=== PATIENT | male | born 1940 | race Caucasian/White ===

== ENCOUNTER 2023-03-24 15:31 | Outpatient (AMB) | payer MEDICARE, OTHER, SELFPAY ==
--- NOTE | 2023-03-24 15:46 | A.OFFVIS_ITS ---
Intake Intake Visit Reasons: Nocturia/saw Dr. Caldwell before Intake Note: Pt presents to the office today for Nocturia. Urinalysis done. PVR-0 Allergies amoxicillin [AMOXICILLIN] Allergy (Intermediate, Unverified 03/24/23 15:46) SKIN SLOUGHING Medication List - Last Reconciled 03/24/23 by Franco Staples MD albuterol sulfate mg inhalation Q6H PRN allopurinol 300 mg PO DAILY apixaban (Eliquis) 2.5 mg PO BID carvedilol 3.125 mg PO BID empagliflozin (Jardiance) 10 mg PO DAILY yvcufjudprf-lekvvrkow-ootekkod 100-62.5-25 mcg (Trelegy Ellipta) 1 ea inhalation DAILY insulin aspart U-100 (Novolog FlexPen U-100 Insulin aspart) 30 - 44 units subcut TID insulin glargine (Basaglar KwikPen U-100 Insulin) 50 units subcut QPM montelukast 10 mg PO DAILY nitroglycerin 0.4 mg sublingual DAILY PRN sacubitril-valsartan 24-26 mg (Entresto) 1 tab PO BID simvastatin 40 mg PO BEDTIME tamsulosin 0.4 mg PO BEDTIME 90 days torsemide 20 mg PO BID HPI HPI Comments History of Present Illness Details Hardeep is a pleasant male. He seen for following urologic issues - lower urinary tract symptoms Lower urinary tract symptoms Prior prostate procedure Has both storage and emptying symptoms Urinary urgency with weakness of stream Diabetic on Jardiance Prostate medications include tamsulosin Recommend 3 month follow-up with cystoscopy Review of Systems Const Denies chills and Denies fever(s) Card Reports no additional complaints and Denies syncope Resp Denies cough GI Denies abdominal pain and Denies heartburn Reports as per HPI and Denies change in libido Neuro Denies syncope Psych Denies change in libido Endo Denies change in libido Physical Exam Const General: cooperative, healthy appearing, comfortable and no acute distress Orientation/consciousness: patient oriented x3 HEENT Face and sinus: Yes normal facial exam Mouth: moist mucous membranes Neck Neck: Yes normal visual inspection, Yes full ROM and Yes trachea midline Chest Chest palpation & inspection: normal inspection of the chest Resp Effort & Inspection: normal respiratory effort, able to speak in complete sentences and no respiratory distress GI Inspection: Yes normal to inspection Back/Spine/Pelvis Cervical Spine: normal cervical lordosis Thoracic/Lumbar Spine: thoracic and lumbar spine normal to inspection Skin General skin exam: no rashes or lesions noted Neuro General: patient oriented x3, gait normal, tone normal and moves all extremities Extrem General: Yes normal to inspection and Yes capillary refill normal Office Procedures Post Void Residual Post Residual Void Post Void Residual (PVR): 0 [id number]-[id number] Void Residual by ultrasound Results AMB Urinalysis, Automated UA Leukoctes 0 Yehuda/uL Last Edit by Karla Bell MA on 03/24/23 16:01 UA Nitrite Negative Last Edit by Karla Bell MA on 03/24/23 16:01 UA Urobilinogen 0.2 mg/dL Last Edit by Karla Bell MA on 03/24/23 16:01 UA Protein 0 mg/dL Last Edit by Karla Bell MA on 03/24/23 16:01 UA pH 6.0 Last Edit by Karla Bell MA on 03/24/23 16:01 UA Blood 0 Nikko/uL Last Edit by Karla Bell MA on 03/24/23 16:01 UA Specific [place] 1.015 Last Edit by Karla Bell MA on 03/24/23 16:01 UA Ketone Negative Last Edit by Karla Bell MA on 03/24/23 16:01 UA Bilirubin 0 mg/dL Last Edit by Karla Bell MA on 03/24/23 16:01 UA Glucose 500 mg/dL Last Edit by Karla Bell MA on 03/24/23 16:01 Results Reviewed Results Reviewed: Laboratory Last Values Urine pH (Auto) 6.0 03/24/23 16:00 Specific [place] (Auto) 1.015 03/24/23 16:00 Urine Protein (Auto) 0 mg/dL 03/24/23 16:00 Glucose (UA)(Auto) 500 mg/dL 03/24/23 16:00 Urine Ketones (Auto) Negative 03/24/23 16:00 Urine Blood (Auto) 0 Nikko/uL 03/24/23 16:00 Urine Nitrite (Auto) Negative 03/24/23 16:00 Urine Bilirubin (Auto) 0 mg/dL 03/24/23 16:00 Urine Urobilinogen (Auto) 0.2 mg/dL 03/24/23 16:00 Leukocyte Esterase (Auto) 0 Yehuda/uL 03/24/23 16:00 Assessment & Plan Assessment & Plan (1) Bladder outlet obstruction: Code(s): N32.0 - Bladder-neck obstruction Plan 3 month f/u cysto Orders: Orders AMB Post Void Residual by ultrasound 03/24/23 R35.1 - Nocturia AMB Urinalysis Automated 03/24/23 Z13.9 - Encounter for screening, unspecified Medications: New tamsulosin 0.4 mg PO BEDTIME 90 caps 1RF 90 days N32.0 - Bladder-neck obstru ction, N40.1 - Benign prostatic hyperplasia with lower urinary tract symptoms, N13.8 - Other obstructive and reflux uropathy Patient Instructions: Imaging studies, laboratory and physical exam results were discussed and reviewed in detail. No major barriers to patient understanding were identified. An opportunity to ask questions regarding the treatment plan was provided. All questions were answered. The patient expressed understanding and agreement with the above treatment plan. The patient is aware they should contact our office by phone for worsening of their current condition or the appearance of new urologic symptoms. Compliance is encouraged with any medications and followup testing that is ordered. It is a privilege to participate in the urologic care of your patient. If you have any questions or concerns regarding treatment for the above conditions, or other urologic issues, please do not hesitate to contact me. The office telephone contact is [phone]. This note is constructed using voice recognition software. While every effort has been made to ensure accuracy desk maker errors may have been included. Yours sincerely, Dr Franco Staples MD, [facility] - Urology Providers of Expert, Compassionate Care for the Genitourinary System Coding Level of Care Code New Pt Level 4 (04137) Diagnoses Bladder outlet obstruction N32.0 CPT Codes Post Residual Void - PVR CPT Code: 26395-Zkhi Void Residual by ultrasound ([id number])
== END 2023-03-24 16:30 | disposition home or self-care (01) ==
PROVIDERS: Visit Provider Urology
DX: N32.0 Bladder-neck obstruction (principal)
CPT/HCPCS: 99204

== ENCOUNTER → 2023-03-24 15:31 | Outpatient (BNVA) | payer MEDICARE, OTHER, SELFPAY | PROVIDERS: Visit Provider Urology | DX: N32.0 Bladder-neck obstruction (principal) | CPT/HCPCS: 51798 ==

== ENCOUNTER 2023-07-10 13:25 | Outpatient (AMB) | payer MEDICARE, OTHER, SELFPAY ==
--- NOTE | 2023-07-10 13:34 | A.OFFVIS_ITS ---
Intake Intake Visit Reasons: 3m/cysto(Bladder Outlet ob_) Intake Note: Patient presents today for a CYSTOSCOPY Procedure: Meds: Tamsulosin Allergies to Antibiotic: Amoxicilin Blood Thinner: Eliquis & Torsemide Urinalysis test clear for Cysto? Disposable Uro-G Cystoscope Cannula: Lot: [id number] Exp: 01/04/2025 Jewelry Inspector Required: No Accompanied by: Self / Same As Patient Allergies amoxicillin [AMOXICILLIN] Allergy (Intermediate, Verified 07/10/23 13:34) SKIN SLOUGHING HPI HPI Comments History of Present Illness Details Hardeep is an 86-year-old male who presents today to the office for a follow-up. 07/10/2023-- He is followed today for office cystoscopy He was last seen by Dr. Jhoan Gamez on 03/24/2023 for bladder outlet obstruction. Cystoscopy procedure: consent was obtained for the procedure. Cystoscopy findings: Trilobar enlargement of the prostate which is obstructive Patient is going to [place] for the winter. He will be back in 11/2023. 07/10/2023: Evaluation today--UA--Leukoc ytes: negative; blood: negative. 07/10/2023: Plan: Tamsulosin refilled. Follow-up with Dr. Staples in 01/2024 to evaluate for possible Green Light laser.. COUNT INCLUDES [facility] Surgical History Hx of cystoscopy Review of Systems Const All systems reviewed & are unremarkable except as noted in HPI and below Reports no additional complaints Eyes Reports no additional complaints ENT Reports no additional complaints Card Denies dyspnea Resp Denies cough and Denies dyspnea GI Reports no additional complaints Musc Reports no additional complaints Skin/Breast Denies rash and Denies unusual bruising Neuro Reports no additional complaints Psych Reports no additional complaints Endo Reports no additional complaints Richard/Lymph Reports no additional complaints Aller/Immun Reports no additional complaints Office Procedures Cystoscopy Consent Discussed risk and benefit or proposed procedure with the patient. Information consent for procedure given to the patient. Discussed technical aspects, risks, benefits and alternatives in full. Addressed all of the patient's questions and concerns regarding the procedure. The patient demonstrated knowledge and understanding. They wish to proceed with this procedure. Preparation The patient was prepped in the usual manner. A information technology auditor was present and in the room. Genitalia was prepped with betadine solution in a sterile manner. Lidocaine Jelly 2% was placed into the urethra and 16Fr flexible Olympus cystoscope was inserted into the meatus after adequate lubrication. Procedure Time out per protocol performed. Bladder Inspection Bladder Inspection: The bladder was inspected in its entirety with utilization retroflexion displaying: Tumor(s): none visualized Trabeculation: moderate Mucosal Erthema: mild Orifices: normal shape and position Urethra: normal Cystoscopy findings: prostatic urethra tri-lobar obstructive, bulbous urethra WNL, no suspicious bladder lesions visualized 53730-Yhsocouqzl DISPOSABLE SCOPE URO-G FLEXIBLE SCOPE Procedure code (CPT) selection complete Office Meds lidocaine HCl 2 % mucosal jelly in applicator Performing Provider: Shiela Cote MD Performing Location: [facility] Administered by: Linda Costa RN on 07/10/23 13:54 Dose Route Admin Location Dispensed Lot Number Expiration Date ND Financial Analyst Accountant 10 mL intra-urethral 20 mL naproxen 500 mg tablet Performing Provider: Shiela Cote MD Performing Location: [facility] Administered by: Linda Costa RN on 07/10/23 13:54 Dose Route Admin Location Dispensed Lot Number Expiration Date NDC Financial Analyst Accountant 500 mg PO 1 tab ciprofloxacin HCl 500 mg tablet Performing Provider: Shiela Cote MD Performing Location: [facility] Administered by: Linda Costa RN on 07/10/23 13:54 Dose Route Admin Location Dispensed Lot Number Expiration Date NDC Financial Analyst Accountant 500 mg PO 1 tab Results AMB Urinalysis, Automated UA Leukoctes 0 Yehuda/uL Last Edit by MERCEDEZ Dior on 07/10/23 13:44 UA Nitrite Negative Last Edit by MERCEDEZ Dior on 07/10/23 13:44 UA Urobilinogen 0.2 mg/dL Last Edit by Jaun Barahona A on 07/10/23 13:4 4 UA Protein 0 mg/dL Last Edit by Jaun Barahona A on 07/10/23 13:44 UA pH 6.0 Last Edit by Jaun Barahona, A on 07/10/23 13:44 UA Blood 0 Nikko/uL Last Edit by Jaun Barahona, A on 07/10/23 13:44 UA Specific [place] 1.015 Last Edit by Jaun Barahona, A on 07/10/23 13: 44 UA Ketone Negative Last Edit by Jaun Barahona, A on 07/10/23 13:44 UA Bilirubin 0 mg/dL Last Edit by Jaun Barahona A on 07/10/23 13:44 UA Glucose 100 mg/dL Last Edit by Jaun Barahona A on 07/10/23 13:44 Results Reviewed Results Reviewed: Laboratory Last Values Urine pH (Auto) 6.0 07/10/23 13:43 Specific [place] (Auto) 1.015 07/10/23 13:43 Urine Protein (Auto) 0 mg/dL 07/10/23 13:43 Glucose (UA)(Auto) 100 mg/dL 07/10/23 13:43 Urine Ketones (Auto) Negative 07/10/23 13:43 Urine Blood (Auto) 0 Nikko/uL 07/10/23 13:43 Urine Nitrite (Auto) Negative 07/10/23 13:43 Urine Bilirubin (Auto) 0 mg/dL 07/10/23 13:43 Urine Urobilinogen (Auto) 0.2 mg/dL 07/10/23 13:43 Leukocyte Esterase (Auto) 0 Yehuda/uL 07/10/23 13:43 Assessment & Plan Assessment & Plan (1) Bladder outlet obstruction: Code(s): N32.0 - Bladder-neck obstruction Plan Tamsulosin refilled. Follow-up with Dr. Staples in 01/2024. Orders: Orders AMB Cystoscopy 07/10/23 N32.0 - Bladder-neck obstruction AMB Urinalysis Automated 07/10/23 Z13.9 - Encounter for screening, unspecified Medications: Refilled tamsulosin 0.4 mg PO BEDTIME 90 caps 3RF 90 days N32.0 - Bladder-neck obstruction, N40.1 - Benign prostatic hyperplasia with lower urinary tract symptoms, N13.8 - Other obstructive and reflux uropathy Patient Instructions: The patient had an opportunity to ask questions regarding treatment plan. All questions were answered. Imaging, Laboratory studies and physical exam results were discussed and reviewed in detail. No major barriers to understanding were identified. The patient expressed understanding and agreement with the above treatment plan. The patient is aware they should contact our office by phone for worsening of their current condition or the appearance of new symptoms. Compliance is encouraged with any medications and followup testing that is ordered. It is a privilege to be allowed the opportunity to participate in the urologic care of your patient. If you have any questions or concerns regarding treatment for the above conditions please do not hesitate to contact me. The office telephone contact is [phone]. This note is constructed in part using voice recognition software. While every effort has been made to ensure accuracy exterior work helper errors may have been included. Yours sincerely, Shiela Cote MD Coding Level of Care Code Procedure Only Diagnoses Bladder outlet obstruction N32.0 CPT Codes Cystoscopy - CPT: 66831-Wzwbraovvq ([id number])
== END 2023-07-10 14:40 | disposition home or self-care (01) ==
LOC: HO.HUSH 13:25
PROVIDERS: PCP Internal Medicine; Visit Provider Urology
DX: Z13.9 Encounter for screening, unspecified (principal); N32.0 Bladder-neck obstruction
CPT/HCPCS: 52000

== ENCOUNTER → 2023-07-10 13:25 | Outpatient (BNVA) | payer MEDICARE, OTHER, SELFPAY | PROVIDERS: PCP Internal Medicine; Visit Provider Urology | DX: N32.0 Bladder-neck obstruction (principal) | CPT/HCPCS: 52000; 81003 ==

== ENCOUNTER 2024-06-18 10:42 | Outpatient (AMB) | payer MEDICARE, OTHER, SELFPAY ==
--- NOTE | 2024-06-18 10:47 | A.OFFVIS_ITS ---
Intake Visit Reasons: PVR/Discussion on Greenlight Intake Note: Patient is present for PVR/DISCUSSION ON GREENLIGHT Urology Medication:TAMSULOSIN, ALLOPURINOL Antibiotic Allergy:AMOXCILLIN Blood Thinner:ELIQUIS TODAY'S PVR: 0ML'S Patient states that he has been having some burning when urinating and does see some blood in his urine Automotive Accessory Installer Required: No Allergies amoxicillin [AMOXICILLIN] Allergy (Intermediate, Verified 06/18/24 10:49) SKIN SLOUGHING HPI Comments Details: Hardeep is a pleasant male. He seen for following urologic issues - lower urinary tract symptoms - urinary culture Underwent cystoscopy beginning of this year Has recurrent BPH Previously discussed prostate procedures Might benefit from addition of finasteride UA today positive leukocytes, positive blood. Given diabetic status will treat and performed culture Had femur fracture while standing and kitchen. Obtain baseline DEXA scan Lower urinary tract symptoms Prior prostate procedure Has both storage and emptying symptoms Urinary urgency with weakness of stream Diabetic on Jardiance Prostate medications include tamsulosin PFSH Surgical History Hx of cystoscopy Review of Systems Const Denies chills and Denies fever(s) Card Reports no additional complaints and Denies syncope Resp Denies cough GI Denies abdominal pain and Denies heartburn Reports as per HPI and Denies change in libido Neuro Denies syncope Psych Denies change in libido Endo Denies change in libido Physical Exam Const General: cooperative, healthy appearing, comfortable and no acute distress Orientation/consciousness: patient oriented x3 HEENT Face and sinus: Yes normal facial exam Mouth: moist mucous membranes Neck Neck: Yes normal visual inspection, Yes full ROM and Yes trachea midline Chest Chest palpation & inspection: normal inspection of the chest Resp Effort & Inspection: normal respiratory effort, able to speak in complete sentences and no respiratory distress GI Inspection: Yes normal to inspection Back/Spine/Pelvis Cervical Spine: normal cervical lordosis Thoracic/Lumbar Spine: thoracic and lumbar spine normal to inspection Skin General skin exam: no rashes or lesions noted Neuro General: patient oriented x3, gait normal, tone normal and moves all extremities Extrem General: Yes normal to inspection and Yes capillary refill normal Office Procedures Post Void Residual Post Residual Void Post Void Residual (PVR): 0 10014-Kpmp Void Residual by ultrasound Results AMB Urinalysis, Automated UA Leukoctes 500 Yehuda/uL Last Edit by GARRY Durán on 06/18/24 11:30 UA Nitrite Negative Last Edit by GARRY Durán on 06/18/24 11:30 UA Urobilinogen 0.2 mg/dL Last Edit by GARRY Durán on 06/18/24 11:3 0 UA Protein 15 mg/dL Last Edit by GARRY Durán on 06/18/24 11:30 UA pH 6.0 Last Edit by GARRY Durán on 06/18/24 11:30 UA Blood 80 Nikko/uL Last Edit by GARRY Durán on 06/18/24 11:30 UA Specific [place] 1.015 Last Edit by GARRY Durán on 06/18/24 11: 30 UA Ketone Negative Last Edit by GARRY Durán on 06/18/24 11:30 UA Bilirubin 0 mg/dL Last Edit by GARRY Durán on 06/18/24 11:30 UA Glucose 1000 mg/dL Last Edit by GARRY Durán on 06/18/24 11:30 Assessment & Plan Assessment & Plan (1) Bladder outlet obstruction: Code(s): N32.0 - Bladder-neck obstruction Category: Medical (2) Complicated urinary tract infection: Code(s): N39.0 - Urinary tract infection, site not specified Category: Medical (3) Femur fracture: Code(s): S72.90XA - Unspecified fracture of unspecified femur, initial encounter for closed fracture Category: Medical Plan DEXA scan Six week follow-up with finasteride Orders: Orders Urine Culture Today N39.0 - Urinary tract infection, site not specified XR DEXA axial skeleton 3 Months S72.90XA - Unspecified fracture of unspecified femur, initial encounter for closed fracture AMB Urinalysis Automated Today Z13.9 - Encounter for screening, unspecified Medications: New levofloxacin 500 mg PO DAILY 14 days 14 tabs 0RF N39.0 - Urinary tract infection, site not specified finasteride 5 mg PO DAILY 90 days 90 tabs 1RF N13.8 - Other obstructive and reflux uropathy, N32.0 - Bladder-neck obstruction, N40.1 - Benign prostatic hyperplasia with lower urinary tract symptoms, R33.9 - Retention of urine, unspecified Patient Instructions: Imaging studies, laboratory and physical exam results were discussed and reviewed in detail. No major barriers to patient understanding were identified. An opportunity to ask questions regarding the treatment plan was provided. All questions were answered. The patient expressed understanding and agreement with the above treatment plan. The patient is aware they should contact our office by phone for worsening of their current condition or the appearance of new urologic symptoms. Compliance is encouraged with any medications and followup testing that is ordered. It is a privilege to participate in the urologic care of your patient. If you have any questions or concerns regarding treatment for the above conditions, or other urologic issues, please do not hesitate to contact me. The office telephone contact is [phone]. This note is constructed using voice recognition software. While every effort has been made to ensure accuracy border patrol officer errors may have been included. Yours sincerely, Dr Franco Staples MD, [facility] - Urology Providers of Expert, Compassionate Care for the Genitourinary System Coding Level of Care Code Est Pt Level 4 (91655) Diagnoses Bladder outlet obstruction N32.0 Complicated urinary tract infection N39.0 Femur fracture S72.90XA CPT Codes Post Residual Void - PVR CPT Code: 05803-Lfdf Void Residual by ultrasound ([id number])
== END 2024-06-18 11:58 | disposition home or self-care (01) ==
PROVIDERS: PCP Internal Medicine; Visit Provider Urology
DX: N32.0 Bladder-neck obstruction (principal); N39.0 Urinary tract infection, site not specified; S72.90XA Unspecified fracture of unspecified femur, initial encounter for closed fracture; Z13.9 Encounter for screening, unspecified
CPT/HCPCS: 99214

== ENCOUNTER 2024-06-18 10:42 | Outpatient (REF) | payer MEDICARE, OTHER, SELFPAY | END 2024-06-18 10:43 | disposition home or self-care (01) | LOC: HO.LNP 10:42 | PROVIDERS: PCP Internal Medicine; Visit Provider Urology | DX: N39.0 Urinary tract infection, site not specified (principal); N40.1 Benign prostatic hyperplasia with lower urinary tract symptoms; R39.15 Urgency of urination; N32.0 Bladder-neck obstruction; N13.8 Other obstructive and reflux uropathy; R39.12 Poor urinary stream; R33.8 Other retention of urine | CPT/HCPCS: 51798; 81003; 87086; 87088; 87186; 99212 ==

== ENCOUNTER 2024-07-04 13:41 | Outpatient (REF) | payer MEDICARE, OTHER, SELFPAY | END 2024-07-04 13:42 | disposition home or self-care (01) | LOC: HO.LAB 13:41 | PROVIDERS: PCP Internal Medicine; Visit Provider Urology | DX: N32.0 Bladder-neck obstruction (principal); N39.0 Urinary tract infection, site not specified | CPT/HCPCS: 81003; 87086 ==

== ENCOUNTER 2024-07-04 13:41 | Outpatient (AMB) | payer MEDICARE, OTHER, SELFPAY ==
--- NOTE | 2024-07-04 14:13 | AM.OFFVISNUR ---
Intake Visit Reasons: blood in urine Allergies amoxicillin [AMOXICILLIN] Allergy (Intermediate, Verified 06/18/24 10:49) SKIN SLOUGHING Nursing Note Patient presents to office after calling into office reporting gross hematuria. Patient present with for visit. Patient took photo this morning of toilet bowl after voiding, water in toilet bowl appeared to be dark red. Patient reporting that he also has had to dab end of penis due to blood coming out. UA run- indicates infection. Reviewed with Dr. Staples- patient has infection, send bactrim DS BID x14 days. Patient aware and agreeable. Results AMB Urinalysis, Automated UA Leukoctes 500 Yehuda/uL Last Edit by Joshua Rose LPN on 07/04/24 14:26 UA Nitrite Positive Last Edit by Joshua Rose LPN on 07/04/24 14:26 UA Urobilinogen 2 mg/dL Last Edit by Joshua Rose LPN on 07/04/24 14:26 UA Protein 100 mg/dL Last Edit by Joshua Rose LPN on 07/04/24 14:26 UA pH 5.5 Last Edit by Joshua Rose LPN on 07/04/24 14:26 UA Blood 200 Nikko/uL Last Edit by Joshua Rose LPN on 07/04/24 14:26 UA Specific [place] 1.010 Last Edit by Joshua Rose LPN on 07/04/24 14:26 UA Ketone Positive Last Edit by Joshua Rose LPN on 07/04/24 14:26 UA Bilirubin 0 mg/dL Last Edit by Joshua Rose LPN on 07/04/24 14:26 UA Glucose 500 mg/dL Last Edit by Joshua Rose LPN on 07/04/24 14:26 Assessment & Plan Assessment & Plan Orders: Orders Urine Culture Today N32.0 - Bladder-neck obstruction, N39.0 - Urinary tract infection, site not specified AMB Urinalysis Automated Today N32.0 - Bladder-neck obstruction, N39.0 - Urinary tract infection, site not specified
== END 2024-07-04 14:56 | disposition home or self-care (01) ==
LOC: HO.HUSH 13:42
PROVIDERS: PCP Internal Medicine; Visit Provider Urology
DX: N39.0 Urinary tract infection, site not specified (principal); N32.0 Bladder-neck obstruction

== ENCOUNTER 2024-08-02 10:42 | Outpatient (AMB) | payer MEDICARE, OTHER, SELFPAY ==
--- NOTE | 2024-08-02 10:42 | MHC.OFFVIS ---
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 He seen for following urologic issues - lower urinary tract symptoms - urinary culture Telemedicine Evaluation 15 min Consultation Doximity Guille Video Significant improvement after antibiotics for UTI Underwent cystoscopy beginning of this year Has recurrent BPH Previously discussed prostate procedures Initiate finasteride Lower urinary tract symptoms Prior prostate procedure Has both storage and emptying symptoms Urinary urgency with weakness of stream Diabetic on Jardiance Prostate medications include tamsulosin PFSH Surgical History Hx of cystoscopy Review of Systems Const All systems reviewed & are unremarkable except as noted in HPI and below Reports no additional complaints Resp Reports no additional complaints GI Reports no additional complaints Reports as per HPI Musc Reports no additional complaints Physical Exam Telemedicine evaluation Appropriate responses Regular breathing rate and rhythm HEENT Head: Yes normal to inspection Ears: hearing grossly normal bilaterally Eyes General: appearance normal, both eyes and all related structures Neck Neck: Yes normal visual inspection Chest Chest palpation & inspection: normal inspection of the chest Resp Effort & Inspection: normal respiratory effort and able to speak in complete sentences Telehealth Telehealth Telehealth Platform: Octopart Location of provider rendering services: practice address Location of patient: address on file Patient Identification confirmed using: Name, : Yes Telehealth method: video Patient verbally consented to treatment: Yes Patient verbally consented to billing insurance company: Yes Patient informed of any privacy concerns related to visit: Yes Minutes spent on Phone/Video with Pt.: 15 Assessment & Plan Assessment & Plan (1) Bladder outlet obstruction: Code(s): N32.0 - Bladder-neck obstruction Category: Medical (2) Complicated urinary tract infection: Code(s): N39.0 - Urinary tract infection, site not specified Category: Medical (3) Femur fracture: Code(s): S72.90XA - Unspecified fracture of unspecified femur, initial encounter for closed fracture Category: Medical Plan Six-month follow-up office Medications: Refilled finasteride 5 mg PO DAILY 90 days 90 tabs 1RF N13.8 - Other obstructive and reflux uropathy, N32.0 - Bladder-neck obstruction, N40.1 - Benign prostatic hyperplasia with lower urinary tract symptoms, R33.9 - Retention of urine, unspecified Patient Instructions: Imaging studies, laboratory and physical exam results were discussed and reviewed in detail. No major barriers to patient understanding were identified. An opportunity to ask questions regarding the treatment plan was provided. All questions were answered. The patient expressed understanding and agreement with the above treatment plan. The patient is aware they should contact our office by phone for worsening of their current condition or the appearance of new urologic symptoms. Compliance is encouraged with any medications and followup testing that is ordered. It is a privilege to participate in the urologic care of your patient. If you have any questions or concerns regarding treatment for the above conditions, or other urologic issues, please do not hesitate to contact me. The office telephone contact is [phone]. This note is constructed using voice recognition software. While every effort has been made to ensure accuracy medical transcription errors may have been included. Yours sincerely, Dr Franco Staples MD, [facility] - Urology Providers of Expert, Compassionate Care for the Genitourinary System Coding Level of Care Code Tele Est Pt Level 3 (42787) Diagnoses Bladder outlet obstruction N32.0 Complicated urinary tract infection N39.0 Femur fracture S72.90XA
--- OUTSIDE RECORDS SUMMARY | 2024-08-07 07:42 | XMS_ITS ---
Author Organization [facility] Address [address] [place] [address] Care Team Providers Care Travel Manager Name Role Phone TRISTAN RESENDEZ Primary Care Provider [phone] REASON FOR VISIT Spam call Encounters Encounter Location Date Provider Diagnosis [facility] [address] [place] [address] 08/02/2024 TRISTAN RESENDEZ PLAN OF TREATMENT Next Appt Details Provider Name:TRISTAN RESENDEZ, 01/13/2025 11:45:00 AM, [address], [facility] [place], [address], Progress Notes * Hardeep HOLGUINDOB: 2 (84 yo M)Acc No.[id number]:08/02/2024 Patient:??Hardeep HOLGUIN :1940?Age:84 Y?Sex:Osiris roberson Address:[address], [place] [address] * true * Date:??
--- OUTSIDE RECORDS SUMMARY | 2024-08-07 07:42 | XMS_ITS ---
Author Organization [facility] Address [address] [place] [address] Care Team Providers Care Kosher Dietary Service Manager Name Role Phone TRISTAN RESENDEZ Primary Care Provider VINNIE PIPER [phone] Scan Results Encounters Encounter Location Date Provider Diagnosis [facility] [place] [facility] [address] [facility] [place] [address] 07/11/2024 VINNIE PIPER PLAN OF TREATMENT Next Appt Details Provider Name:TRISTAN RESENDEZ, 01/13/2025 11:45:00 AM, [address], [facility] [place], [address], Progress Notes * CHELSIEHardeepDOB: 2 (84 yo M)Acc No.[id number]:07/11/2024 Patient:??Hardeep HOLGUIN :1940?Age:84 Y?Sex:Kaci da Address:[place] [address] * true * Date:??
--- OUTSIDE RECORDS SUMMARY | 2024-08-07 07:42 | XMS_ITS ---
Author Organization [facility] Address [address] [address] Care Team Providers Care Goodyear Welter Name Role Phone TRISTAN RESENDEZ Primary Care Provider [phone] REASON FOR VISIT EQUIPMENT SUPERINTENDENT Encounters Encounter Location Date Provider Diagnosis [address] [address] 07/12/2024 TRISTAN RESENDEZ PLAN OF TREATMENT Next Appt Details Provider Name:TRISTAN RESENDEZ, 01/13/2025 11:45:00 AM, [address], [place], [address], Progress Notes * CHELSIEHardeep SCHAFERDOB: 2 (84 yo M)Acc No.[id number]:07/12/2024 Patient:??Hardeep HOLGUIN :1940?Age:84 Y?Sex:Osiris roberson Address:[address], [place] [address] * true * Date:??
--- OUTSIDE RECORDS SUMMARY | 2024-08-07 07:43 | XMS_ITS ---
Author Organization [facility] Address [address] [facility] [place] [address] Care Team Providers Care Bi Architect Name Role Phone Rimma Pettit Primary Care Provider Fernando Diane Unavailable [phone] Allergies Allergen (clinical drug ingredient) Drug/Non Drug Allergy documented on EMR Reaction Allergy Type Onset Date Status amoxicillin Amoxicillin rash, skin peeling Drug Allergy Active Doxycycline Calcium Reaction Drug Allergy Active REASON FOR VISIT At Risk Footcare Medications Medication SIG (Take, Route, Frequency, Duration) Notes Start Date End Date Status Xarelto 20 MG 1 tablet Orally Once a day Not-Taking Advair Diskus 500-50 MCG/DOSE 1 puff Inhalation Twice a day Not-Taking Spiriva HandiHaler 18 MCG 1 capsule Inhalation Once a day Not-Taking Glimepiride 4 MG 1 tablet with breakfast or the first main meal of the day Orally Once a day for 30 day(s) Not-Taking Aspirin 81 MG 1 tablet Orally Once a day for 30 day(s) Not-Taking Qnasl 80 MCG/ACT 2 puffs in each nostril Nasally Once a day for 30 day(s) Not-Taking Magnesium Not-Taking Vitamin D Not-Taking Furosemide 40 MG 1 tablet Orally Once a day twice a day Not-Taking Metoprolol Succinate ER 50 MG 1 tablet Orally Once a day for 30 day(s) Not-Taking BD Pen Needle Short U/F 31G X 8 MM as directed Not-Taking One Touch/One Touch II Starter Not-Taking Nebulizer Not-Taking ProAir HFA 108 (90 Base) MCG/ACT 2 puffs as needed Inhalation every 4 hrs Not-Taking Trelegy Ellipta 100-62.5-25 MCG/ACT 1 puff Inhalation Once a day Active NovoLOG 100 UNIT/ML Subcutaneous Active NovoLOG FlexPen Acti ve Simvastatin 40 MG 1 tablet in the evening Orally Once a day for 30 day(s) Active Torsemide 40 MG 1 tablet Orally Once a day Active Trulicity Active Eliquis 2.5 MG 1 tablet Orally Twice a day Active Empagliflozin 10 MG 1 tablet Orally Once a day Active Metoprolol Succinate ER 25 MG 1 tablet Orally Once a day Active Montelukast Sodium 10 MG 1 tablet Orally Once a day Active Nitrostat 0.4 MG 1 tablet under the tongue and allow to dissolve as needed Sublingual every 0 hrs Active Apixaban 2.5 MG 1 tablet Orally Twice a day Active Albuterol Sulfate HFA Active Basaglar KwikPen Act marlon Carvedilol 3.125 MG 1 tablet with food Orally Twice a day Active Clindamycin HCl 300 MG 2 capsules Orally every 8 hrs Active Tamsulosin HCl 0.4 MG 1 capsule 30 minut es after the same meal each day Orally Once a day for 30 day(s) Not-Taking Finasteride 1 MG 1 tablet Orally Once a day for 30 day(s) Not-Taking Allopurinol 300 MG 1 tablet Orally Once a day Active Lantus SoloStar 74units 0.02 ml Subcutaneous Once a day for 30 day(s) Not-Taking HumaLOG KwikPen 32 units as directed Subcutaneous Not-Taking Klor-Con M10 Not-Doug ing Fluticasone Propionate Not-Taking AndroGel 2 pumps per arm each day Not-Taking Lisinopril 20 MG 1 tablet Orally Once a day Not-Taking Calcium Not-Taking Singulair 10 MG 1 tablet in the evening Orally Once a day for 30 day(s) Not-Taking Social History Alcohol Screen Question Answer Notes Did you have a drink containing alcohol in the p ast year? No Points 0 Interpretation Negative Vital Signs Height 5 ft 10 in in 07/01/2024 Weight 253 lbs 07/01/2024 BMI 36.3 kg/m2 07/01/2024 Procedures Procedure Date Ordered Date Performed Result Body Sit e 89453-TZKSPRC NAIL, 6 OR MORE 07/01/2024 N/A 98642-SFXP SKIN LESIONS, 2 TO 4 07/01/2024 N/A Encounters Encounter Location Date Provider Diagnosis [facility] [address] [place] [address] 07/01/2024 Fernando Carrillo Type 1 diabetes mellitus with diabetic polyneuropathy E10.42 and Tinea unguium B35.1 Assessments Encounter Date Diagnosis (ICD Code) Assessment Notes Treatment Notes Treatment Clinical Notes Section Notes 07/01/2024 Type 1 diabetes mellitus with diabetic polyneuropathy (ICD-10 - E10.42) 07/01/2024 Tinea unguium (ICD-10 - B35.1) Plan Of Treatment Pending Test Test Name Order Date 62269-ZWXOFIX NAIL, 6 OR MORE 07/01/2024 02286-ZIVO SKIN LESIONS, 2 TO 4 07/01/20 24 Next Appt Details Follow Up: prn, Reason: Provider Name:Fernando Carrillo , 09/19/2024 03:15:00 PM, [address], [address], [place], [address], Procedure Notes * Category Sub-Category Detail Notes Debride Nail 6-10 Nail debridement Performance o f this nail treatment by a nonprofessional would put this patients foot and overall health at risk. Therefore, nail debridement was performed extensively to reduce/remove overall nail length, girth, thickness, subungual debris, and necrotic tissue, by manual and/or electrical means through the use of a nail nipper and/or dremel-type pulp grinder and blender, to a more viable healthy nail plate or bed tissue 6-10. Silver nitrate used for any petechial bleeding as necessary. Definitive antifungal treatment options have been reviewed and discussed with the patient. The patient chooses, no pharmaceutical tx - 87607 Keratoma Treatment Parring or Cutting o f Benign Hyperkeratotic Lesion(s) (-56) 2-4 Lesions - The Benign hyperkeratotic lesions, as described above were pared, and/or cut utilizing a sterile 15 blade, tissue nippers, and/or dremel - 81856 Progress Notes * Hardeep HOLGUIN LDOB: [birth year] (84 yo M)Acc No.[id number]:07/01/2024 Progress Note Patient:?Hardeep Holguin L Provider:?Fernando Carrillo DPM :1940???Age:84 Y???Sex:Male Parvez e:07/01/2024 Address:[address] [place] [address], [place], [id number] Pcp:Rimma Pettit Subjective: * Chief Complaints: * ???At Risk Footcare * HPI: ???At Risk footcare:?Pt States Last PCP Visit:?Date?06/24/2024 * ROS:?General/Constitutional:?Nausea?denies.?Vomiting?denies.?Hunger Thirst?denies.?Loss appetite?denies.?Chills?denies.?Fatigue?denies.?Fever?denies.?Night Sweats?denies.?Unexplained weight loss?denies.?Ophthalmologic:?Blurred vision?denies.?Red eye?denies.?HEENTM:?Dentures?denies.?Dizziness?denies.?Glasses/contacts?admits.?Retinopathy?de nies.?Blurred/double vision?denies.?TMJ?denies.?Discharge/drainage?denies.?Implants?denies.?Hard of hearing admits.?Difficulty chewing/swallowing/speaking?admits.?Nose bleeds?denies.?Sore mouth?denies.?Swollen glands?denies.?Respiratory:?On Oxygen?denies.?Pneumonia/pleurisy?admits.?Bronchitis?admits.?Emphysema?admits.?C oughing?admits.?Cough blood?denies.?Shortness of breath?admits.?Wheezing?denies.?Cardiovascular:?Pacemaker?admits.?MVP?denies.?WPW?denies.?CHF?denies.?Heart attack?admits , denies.?Septal defect?denies.?Rapid beat?denies.?Chest pain ?admits.?Atrial Fib.?denies.?Murmur/Palpitations?denies.?Gastrointestinal:?Hemorrhoids?denies.?Stomach/Abdominal pain?denies.?Dark blood stool?denies.?Irritable bowel ?denies.?Constipation?denies.?Diarrhea?denies.?Vomiting?denies.?Hematology:?Swelling?admits.?Bruising?admits, on anticoagulants.?Bleeding problem?admits, on anticoagulants.?Genitourinary:?Blood urine?admits.?Frequent/Painfu/urination/bladder control?denies.?Kidney stones?admits.?Infection (UTI)?admits , denies.?Nephropathy?admits.?Musculoskeletal:?Hammertoes?admits.?Bunions?denies.?Scoliosis/kyphosis?denies.?Muscle cramps / walking?admits.?Generalized aches and pains?admits.?Weakness?denies.?Integ.:?Cantu?denies.?Scars?denies.?Corns/calluses?admits.?Ingrown nails?admits.?Painful nails?denies.?Rashes?denies.?Neurologic:?Difficulty sleeping?admits.?Bipolar?denies.?Brain disorder?denies.?Balance trouble?admits.?Confusion?denies.?Fainting/blackouts?denies.?Headache?denies.?Tr emors?denies.? * Medical History:? * Surgical History:?facial cos metic surgery stent insertion heart prostate procedure (laser) right eye sx fib procedure 08/13/21cataract surgery 12/2023 * Hospitalization/Major Diagno stic Procedure:?[facility] for foot pain-ER aug or sep 2012[facility]- foot pain oct jun or jul 2012[facility];bladder infection 10/2014[facility] 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[facility] lung infection 05/2019[facility] Anemia 09/2019[facility] covid 06/07/2021- 19 day stay, heart procedure [facility] [place] pacemaker Broken femur 01/13/2024 * Family History:?Mother: dece ased, poor circulation, diagnosed with Family history of arthritis, Diabetic - NIDDM, Unspecified essential hypertension, Unspecified cerebral artery occlusion with cerebral infarction.?Father: , diagnosed with Unspecified essential hypertension, Other malignant neoplasm of unspecified site.?Spouse: alive.?Siblings: diagnosed with Family history of arthritis, Diabetic - NIDDM, Unspecified essential hypertension, Other malignant neoplasm of unspecified site.? * Social History:?Tobacco Use:?Tobacco Use/Smoking?Are you a:: former smoker , Additional Findings: Tobacco Non-User: Current non-smoker.?Tobacco use other than smoking?Are you an other tobacco user? No.?Drugs/Alcohol:?Drugs?Have you used drugs other than those for medical reasons in the past 12 months??No ?Alcohol Screen?Did you have a drink containing alcohol in the past year??No ?Points?0 ?Interpretation?Negative ???Miscellaneous:?Caffeine: yes, frequency:, 1-2 cups per day. ?Children: yes. ?no Exercise. ?Marital status: . ?Occupation: Retired. * Medications:?TakingAllopurin ol 300 MG Tablet 1 tablet Orally Once a dayApixaban 2.5 MG Tablet 1 tablet Orally Twice a dayAlbuterol Sulfate HFA Basaglar KwikPen Carvedilol 3.125 MG Tablet 1 tablet with food Orally Twice a dayClindamycin HCl 300 MG Capsule 2 capsules Orally every 8 hrsEliquis 2.5 MG Tablet 1 tablet Orally Twice a dayEmpagliflozin 10 MG Tablet 1 tablet Orally Once a dayMetoprolol Succinate ER 25 MG Tablet Extended Release 24 Hour 1 tablet Orally Once a dayMontelukast Sodium 10 MG Tablet 1 tablet Orally Once a dayNitrostat 0.4 MG Tablet Sublingual 1 tablet under the tongue and allow to dissolve as needed Sublingual every 0 hrsNovoLOG 100 UNIT/ML Solution Subcutaneous NovoLOG FlexPen Simvastatin 40 MG Tablet 1 tablet in the evening Orally Once a dayTorsemide 40 MG Tablet 1 tablet Orally Once a dayTrulicity Trelegy Ellipta 100-62.5-25 MCG/ACT Aerosol Powder Breath Activated 1 puff Inhalation Once a dayTaking Allopurinol 300 MG Tablet 1 tablet Orally Once a dayTaking Apixaban 2.5 MG Tablet 1 tablet Orally Twice a dayTaking Albuterol Sulfate HFA Taking Basaglar KwikPen Taking Carvedilol 3.125 MG Tablet 1 tablet with food Orally Twice a dayTaking Clindamycin HCl 300 MG Capsule 2 capsules Orally every 8 hrsTaking Eliquis 2.5 MG Tablet 1 tablet Orally Twice a dayTaking Empagliflozin 10 MG Tablet 1 tablet Orally Once a dayTaking Metoprolol Succinate ER 25 MG Tablet Extended Release 24 Hour 1 tablet Orally Once a dayTaking Montelukast Sodium 10 MG Tablet 1 tablet Orally Once a dayTaking Nitrostat 0.4 MG Tablet Sublingual 1 tablet under the tongue and allow to dissolve as needed Sublingual every 0 hrsTaking NovoLOG 100 UNIT/ML Solution Subcutaneous Taking NovoLOG FlexPen Taking Simvastatin 40 MG Tablet 1 tablet in the evening Orally Once a dayTaking Torsemide 40 MG Tablet 1 tablet Orally Once a dayTaking Trulicity Taking Trelegy Ellipta 100-62.5-25 MCG/ACT Aerosol Powder Breath Activated 1 puff Inhalation Once a dayNot-Taking/PRNBD Pen Needle Short U/F 31G X 8 MM Miscellaneous as directed One Touch/One Touch II Starter Nebulizer ProAir HFA 108 (90 Base) MCG/ACT Aerosol Solution 2 puffs as needed Inhalation every 4 hrsQnasl 80 MCG/ACT Aerosol Solution 2 puffs in each nostril Nasally Once a dayMagnesium Vitamin D Furosemide 40 MG Tablet 1 tablet Orally Once a day, Notes: twice a dayMetoprolol Succinate ER 50 MG Tablet Extended Release 24 Hour 1 tablet Orally Once a dayGlimepiride 4 MG Tablet 1 tablet with breakfast or the first main meal of the day Orally Once a dayAspirin 81 MG Tablet Chewable 1 tablet Orally Once a dayXarelto 20 MG Tablet 1 tablet Orally Once a dayAdvair Diskus 500-50 MCG/DOSE Aerosol Powder Breath Activated 1 puff Inhalation Twice a daySpiriva HandiHaler 18 MCG Capsule 1 capsule Inhalation Once a daySingulair 10 MG Tablet 1 tablet in the evening Orally Once a dayKlor-Con M10 Fluticasone Propionate AndroGel Gel 2 pumps per arm each dayLisinopril 20 MG Tablet 1 tablet Orally Once a dayCalcium Lantus SoloStar 74units Solution 0.02 ml Subcutaneous Once a dayHumaLOG KwikPen 32 units Solution as directed Subcutaneous Tamsulosin HCl 0.4 MG Capsule 1 capsule 30 minutes after the same meal each day Orally Once a dayFinasteride 1 MG Tablet 1 tablet Orally Once a dayMedication List reviewed and reconciled with the patientNot-Taking/PRN BD Pen Needle Short U/F 31G X 8 MM Miscellaneous as directed Not-Taking/PRN One Touch/One Touch II Starter Not-Taking/PRN Nebulizer Not-Taking/PRN ProAir HFA 108 (90 Base) MCG/ACT Aerosol Solution 2 puffs as needed Inhalation every 4 hrsNot-Taking/PRN Qnasl 80 MCG/ACT Aerosol Solution 2 puffs in each nostril Nasally Once a dayNot- Taking/PRN Magnesium Not-Taking/PRN Vitamin D Not-Taking/PRN Furosemide 40 MG Tablet 1 tablet Orally Once a day, Notes: twice a dayNot-Taking/PRN Metoprolol Succinate ER 50 MG Tablet Extended Release 24 Hour 1 tablet Orally Once a dayNot-Taking/PRN Glimepiride 4 MG Tablet 1 tablet with breakfast or the first main meal of the day Orally Once a dayNot-Taking/PRN Aspirin 81 MG Tablet Chewable 1 tablet Orally Once a dayNot-Taking/PRN Xarelto 20 MG Tablet 1 tablet Orally Once a dayNot-Taking/PRN Advair Diskus 500-50 MCG/DOSE Aerosol Powder Breath Activated 1 puff Inhalation Twice a dayNot-Taking/PRN Spiriva HandiHaler 18 MCG Capsule 1 capsule Inhalation Once a dayNot-Taking/PRN Singulair 10 MG Tablet 1 tablet in the evening Orally Once a dayNot-Taking/PRN Klor-Con M10 Not-Taking/PRN Fluticasone Propionate Not- Taking/PRN AndroGel Gel 2 pumps per arm each dayNot-Taking/PRN Lisinopril 20 MG Tablet 1 tablet Orally Once a dayNot-Taking/PRN Calcium Not-Taking/PRN Lantus SoloStar 74units Solution 0.02 ml Subcutaneous Once a dayNot-Taking/PRN HumaLOG KwikPen 32 units Solution as directed Subcutaneous Not-Taking/PRN Tamsulosin HCl 0.4 MG Capsule 1 capsule 30 minutes after the same meal each day Orally Once a dayNot-Taking/PRN Finasteride 1 MG Tablet 1 tablet Orally Once a dayMedication List reviewed and reconciled with the patient * Allergies:?Amoxicillin: rash , skin peeling - AllergyDoxycycline Calcium: Reactionyes[Allergies Verified] Objective: * Vitals:?Ht: 5 ft 10 in, Wt:2 53, BMI: 36.3, Shoe size:11, BS:89, Wt-k.76 kg. * Examination: ???Neurological: ?SENSORY:?Neurological exam demonstrates, reduced sharp/dull discrimination , reduced vibration sensation, reduced light touch sensation, 5.07 monofilament test performed at plantar aspects of 5 varied sites per foot shows sensation, absent, at Forefoot, at Midfoot, at Rearfoot, B/L, Pt relates,cont.?anesthesia.?Nails: ?NAILS are:?Elongated, overgrown, dystrophic, lytic, greater than 3mm thick, discolored and friable with crumbly malodorous subungual debris , 1-5 B/L.?Dermatologic: ?SKIN FINDINGS:?Skin exam reveals Keratotic lesion(s) located at, SUB MTH (s), 1, B/L , Heel(s) , B/L.? Assessment: * Assessment: 1.?Type 1 diabetes mellitus with diabetic polyneuropathy - E10.42?2.?Tinea unguium - B35.1? Plan: * Treatment: * Procedures:?Debride Nail 6-10:?Nail debridement?Performance of this nail treatment by a nonprofessional would put this patients foot and overall health at risk. Therefore, nail debridement was performed extensively to reduce/remove overall nail length, girth, thickness, subungual debris, and necrotic tissue, by manual and/or electrical means through the use of a nail nipper and/or dremel-type pulp grinder and blender, to a more viable healthy nail plate or bed tissue 6-10. Silver nitrate used for any petechial bleeding as necessary. Definitive antifungal treatment options have been reviewed and discussed with the patient. The patient chooses, no pharmaceutical tx - 82838.?Keratoma Treatment:?Parring or Cutting of Benign Hyperkeratotic Lesion(s)?(-56) 2-4 Lesions - The Benign hyperkeratotic lesions, as described above were pared, and/or cut utilizing a sterile 15 blade, tissue nippers, and/or dremel - 36483.? * Procedure Codes:?34472 DEBRI DE NAIL, 6 OR MORE, Modifiers: XS 64230 TRIM SKIN LESIONS, 2 TO 4, Modifiers: XS * Follow Up:?prn * Images: * Sign off status: Completed true * Provider:?Fernando Carrillo DPM Date:?2023 Generated for Ramsey staley/Rubén/Pepito on:?08/07/2024 07:43 AM EST History and Physical Notes * HPI (History of Present Illness) Category Sub-Category Detail Notes Category Not es At Risk footcare Pt States Last PCP Visit: Date: Examination Category Sub-Category Detail Notes Category Not es Neurological SENSORY: Neurological exa m demonstrates, reduced sharp/dull discrimination , reduced vibration sensation, reduced light touch sensation, 5.07 monofilament test performed at plantar aspects of 5 varied sites per foot shows sensation, absent, at Forefoot, at Midfoot, at Rearfoot, B/L, Pt relates,cont. anesthesia Dermatologic SKIN FINDINGS: Skin exam reveal s Keratotic lesion(s) located at, SUB MTH (s), 1, B/L , Heel(s) , B/L Nails NAILS are: Elongated, overg rown, dystrophic, lytic, greater than 3mm thick, discolored and friable with crumbly malodorous subungual debris , 1-5 B/L
--- OUTSIDE RECORDS SUMMARY | 2024-08-07 07:43 | XMS_ITS ---
[facility] Organization [facility] Address [address] [place] [address] [place] [address] Care Team Providers Care Separations Scientist Name Role Phone Rimma Pettit Primary Care Provider Fernando Diane Unavailable [phone] Encounters Encounter Location Date Provider Diagnosis [address] [address] 04/03/2024 Fernando Carrillo Plan Of Treatment Next Appt Details Provider Name:Fernando Carrillo , 09/19/2024 03:15:00 PM, [address] [address], [place], [address], Progress Notes * Hardeep HOLGUIN LDOB: [birth year] (84 yo M)Acc No.[id number]:04/03/2024 Progress Note Patient:?Hardeep HOLGUIN Provider:?Fernando Carrillo DPM :1940???Age:84 Y???Sex:Male Parvez e:04/03/2024 Address:[address] [id number] Pcp:Rimma Pettit Subjective: * Chief Complaints: * ??? * Medical History:? Objective: * Vitals:? Assessment: Plan: * Treatment: * Images: * The named appointment provid er may or may not be the originator of this progress note, and it is not deemed complete until electronically signed by the appointment provider. Sign off status: Pending * Provider:?Fernando Carrillo DPM Date:?2023 Generated for Ramsey staley/Rubén/Pepito on:?08/07/2024 07:43 AM EST
--- OUTSIDE RECORDS SUMMARY | 2024-08-07 07:43 | XMS_ITS ---
Author Organization [facility] Address [address] [place] [address] Care Team Providers Care Manager Air Name Role Phone Wilver Rimma Primary Care Provider Fernando Diane Unavailable [phone] Allergies Allergen (clinical drug ingredient) Drug/Non Drug Allergy documented on EMR Reaction Allergy Type Onset Date Status amoxicillin Amoxicillin rash, skin peeling Drug Allergy Active REASON FOR VISIT At Risk Footcare Medications Medication SIG (Take, Route, Frequency, Duration) Notes Start Date End Date Status Calcium Not-Taking Lantus SoloStar 74units 0.02 ml Subcutaneous Once a day for 30 day(s) Not-Taking HumaLOG KwikPen 32 units as directed Subcutaneous Not-Taking Tamsulosin HCl 0.4 MG 1 capsule 30 minut es after the same meal each day Orally Once a day for 30 day(s) Not-Taking Finasteride 1 MG 1 tablet Orally Once a day for 30 day(s) Not-Taking Klor-Con M10 Not-Doug ing Fluticasone Propionate Not-Taking AndroGel 2 pumps per arm each day Not-Taking Lisinopril 20 MG 1 tablet Orally Once a day Not-Taking Singulair 10 MG 1 tablet in the evening Orally Once a day for 30 day(s) Not-Taking Glimepiride 4 MG 1 tablet with breakfast or the first main meal of the day Orally Once a day for 30 day(s) Not-Taking Aspirin 81 MG 1 tablet Orally Once a day for 30 day(s) Not-Taking Xarelto 20 MG 1 tablet Orally Once a day Not-Taking Advair Diskus 500-50 MCG/DOSE 1 puff Inhalation Twice a day Not-Taking Spiriva HandiHaler 18 MCG 1 capsule Inhalation Once a day Not-Taking Qnasl 80 MCG/ACT 2 puffs in each nostril Nasally Once a day for 30 day(s) Not-Taking Magnesium Not-Taking Vitamin D Not-Taking Furosemide 40 MG 1 tablet Orally Once a day twice a day Not-Taking Metoprolol Succinate ER 50 MG 1 tablet Orally Once a day for 30 day(s) Not-Taking Trelegy Ellipta 100-62.5-25 MCG/ACT 1 puff Inhalation Once a day Active BD Pen Needle Short U/F 31G X 8 MM as directed Not-Taking One Touch/One Touch II Starter Not-Taking Nebulizer Not-Taking ProAir HFA 108 (90 Base) MCG/ACT 2 puffs as needed Inhalation every 4 hrs Not-Taking NovoLOG 100 UNIT/ML Subcutaneous Active NovoLOG FlexPen [...] as needed Sublingual every 0 hrs Active Clindamycin HCl 300 MG 2 capsules Orally every 8 hrs Active Apixaban 2.5 MG 1 tablet Orally Twice a day Active Albuterol Sulfate HFA Active Basaglar KwikPen Act marlon Carvedilol 3.125 MG 1 tablet with food Orally Twice a day Active Allopurinol 300 MG 1 tablet Orally Once a day Active Social History Alcohol Screen Question Answer Notes Did you have a drink containing alcohol in the p ast year? 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 Vital Signs Height 5 ft 10 in in 04/03/2024 Weight 240 lbs 04/03/2024 BMI 34.43 kg/m2 04/03/2024 Procedures Procedure Date Ordered Date Performed Result Body Sit e 57755-RMDELJP NAIL, 6 OR MORE 04/03/2024 N/A 72106-PTAS SKIN LESIONS, 2 TO 4 04/03/2024 N/A Encounters Encounter Location Date Provider Diagnosis [facility] [place] [address] [place] [id number] 04/03/2024 Fernando Carrillo Type 1 diabetes mellitus with diabetic polyneuropathy E10.42 and Tinea unguium B35.1 Assessments Encounter Date Diagnosis (ICD Code) Assessment Notes Treatment Notes Treatment Clinical Notes Section Notes 04/03/2024 Type 1 diabetes mellitus with diabetic polyneuropathy (ICD-10 - E10.42) 04/03/2024 Tinea unguium (ICD-10 - B35.1) Plan Of Treatment Pending Test Test Name Order Date [id number]-[id number] NAIL, 6 OR MORE 04/03/2024 81463-YHCQ SKIN LESIONS, 2 TO 4 04/03/20 24 Next Appt Details Follow Up: prn, Reason: Provider Name:Fernando Carrillo , 09/19/2024 03:15:00 PM, [facility], [address] [address], [place], [address], Procedure Notes * Category Sub-Category Detail Notes Debride Nail 6-10 Nail debridement Nail debridem ent performed extensively to reduce/remove overall nail length, girth, thickness, subungual debris, and necrotic tissue, by manual and electrical means through the use of a nail nipper and/or dremel, to more viable healthy nail plate or bed tissue 6-10. Silver nitrate used for any petechial bleeding as necessary. Patient chooses, no pharmaceutical tx (51436) Keratoma Treatment Parring or Cutting o f Benign Hyperkeratotic Lesion(s) 23121 ( 2-4 Lesions ) - The Benign hyperkeratotic lesions, as described above were pared, and/or cut utilizing a sterile 15 blade, tissue nippers, and/or dremel Progress Notes * Hardeep HOLGUIN LDOB: [birth year] (84 yo M)Acc No.[id number]:04/03/2024 Progress Note Patient:?Wise Hardeep L Provider:?Fernando Carrillo DPM :1940???Age:84 Y???Sex:Male Parvez e:04/03/2024 Address:[address] [place] [address] Rd, [place], [id number] Pcp:Rimma Pettit Subjective: * Chief Complaints: * ???At Risk Footcare * HPI: ???At Risk footcare:?Pt States Last PCP Visit:?Date?12/23/2023 * ROS:?General/Constitutional:?Nausea?denies.?Vomiting?denies.?Hunger Thirst?denies.?Loss appetite?denies.?Chills?denies.?Fatigue?denies.?Fever?denies.?Night Sweats?denies.?Unexplained weight loss?denies.?Ophthalmologic:?Blurred [...] 08/13/21cataract surgery 12/2023 * Hospitalization/Major Diagno stic Procedure:?[facility] for foot pain-ER aug or sep 2012[facility]- foot pain oct jun or jul 2012[facility];bladder infection 10/2014[facility] 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[facility] lung infection 05/2019[facility] Anemia 09/2019[facility] covid 06/07/2021- 19 day stay, heart procedure [facility] [place] pacemaker [facility] Broken femur 01/13/2024 * Family History:?Mother: dece ased, poor circulation, diagnosed with Unspecified cerebral artery occlusion with cerebral infarction, Family history of arthritis, Diabetic - NIDDM, Unspecified essential hypertension.?Father: , diagnosed with Unspecified essential hypertension, Other [...] * Allergies:?Amoxicillin: rash , skin peeling - Allergyyes[Allergies Verified] Objective: * Vitals:?Ht: 5 ft 10 in, Wt:2 40, BMI: 34.43, Shoe size:11, BS:150, Wt-k.86 kg. * Examination: ???Neurological: ?SENSORY:?Neurological exam demonstrates, [...] Plan: * Treatment: * Procedures:?Debride Nail 6-10:?Nail debridement?Nail debridement performed extensively to reduce/remove overall nail length, girth, thickness, subungual debris, and necrotic tissue, by manual and electrical means through the use of a nail nipper and/or dremel, to more viable healthy nail plate or bed tissue 6-10. Silver nitrate used for any petechial bleeding as necessary. Patient chooses, no pharmaceutical tx (03850).?Keratoma Treatment:?Parring or Cutting of Benign Hyperkeratotic Lesion(s)?17975 ( 2-4 Lesions ) - The Benign hyperkeratotic lesions, as described above were pared, and/or cut utilizing a sterile 15 blade, tissue nippers, and/or dremel.? * Procedure Codes:?07691 DEBRI DE NAIL, 6 OR MORE, Modifiers: XS 32575 TRIM SKIN LESIONS, 2 TO 4, Modifiers: XS * Follow Up:?prn * Images: * Sign off status: Completed true * Provider:?Fernando Carrillo DPM Date:?2023 Generated for Ramsey staley/Rubén/Isaaksmitting on:?08/07/2024 07:43 AM EST History and Physical [...]
--- OUTSIDE RECORDS SUMMARY | 2024-08-07 07:43 | XMS_ITS | Patient Health Record ---
Author Organization [facility] Address [address] [facility] [place] [address] Care Team Providers Care Waterproofer Name Role Phone TRISTAN PETTIT Primary Care Provider [phone] FAMILIA MONIQUE Unavailable [phone] VINNIE PIPER Unavailable [phone] ALLERGIES Allergen (clinical drug ingredient) Drug/Non Drug Allergy documented on EMR Reaction Allergy Type Onset Date Status amoxicillin amoxicillin (uncoded) Unknown Allergy Active doxycycline Doxycycline hives, bleeding gums, nausea Drug Allergy Active RESULTS Component Value Reference Range Notes CBC Reviewed date:01/26/2024 10:24:06 AM Interpretation: Performing Lab: Notes/Report: Note Original Ordering Provider: WINSTON BUCHANAN MD [employer], a member of [address] [address] Color Card Maker - Margie Farrell MD WBC 8.1 4.8-10.8 x10-3/uL RBC 2.9 4.5-5.5 x10-6/uL HEMOGLOBIN 8.8 13.5-17.5 g/dL HEMATOCRIT 28.2 42-54 % MCV 96.9 79-98 fL MCH 30.2 27-32 pg MCHC 31.2 32-37 g/dL RDW 16.7 11-15 % PLT COUNT 141 130-400 x10-3/uL MEAN PLATELET VOLUME 10.7 7-11 fL NRBC % AUTO 0.0 <1 % NRBC # AUTO 0.00 <0.1 x10-3/uL Note Original Ordering Provider: WINSTON BUCHANAN MD [employer], a member of [address] [address] Color Card Maker - Margie Farrell MD CBC Reviewed date:01/26/2024 10:24:06 AM Interpretation: Performing Lab: Notes/Report: Note Original Ordering Provider: WINSTON BUCHANAN MD [employer], [place] [address] Color Card Maker - Margie Farrell MD WBC 8.2 4.8-10.8 x10-3/uL RBC 3.1 4.5-5.5 x10-6/uL HEMOGLOBIN 9.3 13.5-17.5 g/dL HEMATOCRIT 30.3 42-54 % MCV 99.0 79-98 fL MCH 30.4 27-32 pg MCHC 30.7 32-37 g/dL RDW 17.4 11-15 % PLT COUNT 202 130-400 x10-3/uL MEAN PLATELET VOLUME 10.3 7-11 fL NRBC % AUTO 0.0 <1 % NRBC # AUTO 0.00 <0.1 x10-3/uL Note Original Ordering Provider: WINSTON BUCHANAN MD [employer] [address] Color Card Maker - Margie Farrell MD CBC Reviewed date:01/26/2024 10:35:38 AM Interpretation: Performing Lab: Notes/Report: Note Original Ordering Provider: WINSTON BUCHANAN MD [employer] [address] Color Card Maker - Margie Farrell MD WBC 9.4 4.8-10.8 x10-3/uL RBC 3.2 4.5-5.5 x10-6/uL HEMOGLOBIN 9.5 13.5-17.5 g/dL HEMATOCRIT 31.9 42-54 % MCV 99.4 79-98 fL MCH 29.6 27-32 pg MCHC 29.8 32-37 g/dL RDW 18.0 11-15 % PLT COUNT 237 130-400 x10-3/uL MEAN PLATELET VOLUME 10.0 7-11 fL NRBC % AUTO 0.0 <1 % NRBC # AUTO 0.00 <0.1 x10-3/uL Note Original Ordering Provider: WINSTON BUCHANAN MD [employer] [address] Color Card Maker - Margie Farrell MD CBC Reviewed date:02/13/2024 09:19:10 AM Interpretation: Performing Lab: Notes/Report: Note Original Ordering Provider: WINSTON BUCHANAN MD [employer] [address] Color Card Maker - Margie Farrell MD WBC 8.5 4.8-10.8 x10-3/uL RBC 3.3 4.5-5.5 x10-6/uL HEMOGLOBIN 9.8 13.5-17.5 g/dL HEMATOCRIT 32.6 42-54 % MCV 100.3 79-98 fL MCH 30.2 27-32 pg MCHC 30.1 32-37 g/dL RDW 18.0 11-15 % PLT COUNT 275 130-400 x10-3/uL MEAN PLATELET VOLUME 9.9 7-11 fL NRBC % AUTO 0.0 <1 % NRBC # AUTO 0.00 <0.1 x10-3/uL Note Original Ordering Provider: WINSTON BUCHANAN MD [employer] [address] Color Card Maker - Margie Farrell MD CBC Reviewed date:02/13/2024 09:28:04 AM Interpretation: Performing Lab: Notes/Report: Note Original Ordering Provider: WINSTON BUCHANAN MD [employer], a member of [address] [address] Color Card Maker - Margie Farrell MD WBC 6.7 4.8-10.8 x10-3/uL RBC 3.3 4.5-5.5 x10-6/uL HEMOGLOBIN 9.7 13.5-17.5 g/dL HEMATOCRIT 33.4 42-54 % MCV 102.8 79-98 fL MCH 29.8 27-32 pg MCHC 29.0 32-37 g/dL RDW 17.9 11-15 % PLT COUNT 250 130-400 x10-3/uL MEAN PLATELET VOLUME 9.7 7-11 fL NRBC % AUTO 0.0 <1 % NRBC # AUTO 0.00 <0.1 x10-3/uL Note Original Ordering Provider: WINSTON BUCHANAN MD [employer], a member of [address] [address] Color Card Maker - Margie Farrell MD CBC Reviewed date:02/13/2024 09:29:15 AM Interpretation: Performing Lab: Notes/Report: Note Original Ordering Provider: WINSTON BCUHANAN MD [employer], a member of [address] [address] Color Card Maker - Margie Farrell MD WBC 6.9 4.8-10.8 x10-3/uL RBC 3.4 4.5-5.5 x10-6/uL HEMOGLOBIN 10.0 13.5-17.5 g/dL HEMATOCRIT 34.4 42-54 % MCV 101.2 79-98 fL MCH 29.4 27-32 pg MCHC 29.1 32-37 g/dL RDW 17.8 11-15 % PLT COUNT 215 130-400 x10-3/uL MEAN PLATELET VOLUME 10.4 7-11 fL NRBC % AUTO 0.0 <1 % NRBC # AUTO 0.00 <0.1 x10-3/uL Note Original Ordering Provider: WINSTON BUCHANAN MD [employer], a member of [address] [address] Color Card Maker - Margie Farrell MD CBC Reviewed date:02/13/2024 09:32:36 AM Interpretation: Performing Lab: Notes/Report: Note Original Ordering Provider: WINSTON BUCHANAN MD [employer], a member of [address] [address] Color Card Maker - Margie Farrell MD WBC 8.4 4.8-10.8 x10-3/uL RBC 3.5 4.5-5.5 x10-6/uL HEMOGLOBIN 10.3 13.5-17.5 g/dL HEMATOCRIT 34.2 42-54 % MCV 98.8 79-98 fL MCH 29.8 27-32 pg MCHC 30.1 32-37 g/dL RDW 17.3 11-15 % PLT COUNT 191 130-400 x10-3/uL MEAN PLATELET VOLUME 10.8 7-11 fL NRBC % AUTO 0.0 <1 % NRBC # AUTO 0.00 <0.1 x10-3/uL Note Original Ordering Provider: WINSTON BUCHANAN MD [employer], a member of [address] [address] Color Card Maker - Margie Farrell MD CBC Reviewed date:02/16/2024 10:52:16 AM Interpretation: Performing Lab: Notes/Report: Note Original Ordering Provider: WINSTON BUCHANAN MD [employer], a member of [address] [address] Color Card Maker - Margie Farrell MD WBC 4.3 4.8-10.8 x10-3/uL RBC 3.4 4.5-5.5 x10-6/uL HEMOGLOBIN 10.0 13.5-17.5 g/dL HEMATOCRIT 33.0 42-54 % MCV 97.1 79-98 fL MCH 29.4 27-32 pg MCHC 30.3 32-37 g/dL RDW 17.3 11-15 % PLT COUNT 150 130-400 x10-3/uL MEAN PLATELET VOLUME 10.9 7-11 fL NRBC % AUTO 0.0 <1 % NRBC # AUTO 0.00 <0.1 x10-3/uL Note Original Ordering Provider: WINSTON BUCHANAN MD [employer], a member of [address] [address] Color Card Maker - Margie Farrell MD CBC Reviewed date:02/20/2024 02:08:27 PM Interpretation: Performing Lab: Notes/Report: Note Original Ordering Provider: WINSTON BUCHANAN MD [employer], a member of [address] [address] Color Card Maker - Margie Farrell MD WBC 6.4 4.8-10.8 x10-3/uL RBC 3.7 4.5-5.5 x10-6/uL HEMOGLOBIN 10.7 13.5-17.5 g/dL HEMATOCRIT 37.7 42-54 % MCV 101.1 79-98 fL MCH 28.7 27-32 pg MCHC 28.4 32-37 g/dL RDW 17.2 11-15 % PLT COUNT 158 130-400 x10-3/uL MEAN PLATELET VOLUME 11.2 7-11 fL NRBC % AUTO 0.0 <1 % NRBC # AUTO 0.00 <0.1 x10-3/uL Note Original Ordering Provider: WINSTON BUCHANAN MD [employer], a member of [address] [address] Color Card Maker - Margie Farrell MD CBC Reviewed date:02/20/2024 02:06:44 PM Interpretation: Performing Lab: Notes/Report: Note Original Ordering Provider: WINSTON BUCHANAN MD [employer], a member of [address] [address] Color Card Maker - Margie Farrell MD WBC 7.0 4.8-10.8 x10-3/uL RBC 3.7 4.5-5.5 x10-6/uL HEMOGLOBIN 10.5 13.5-17.5 g/dL HEMATOCRIT 36.0 42-54 % MCV 98.1 79-98 fL MCH 28.6 27-32 pg MCHC 29.2 32-37 g/dL RDW 17.1 11-15 % PLT COUNT 199 130-400 x10-3/uL MEAN PLATELET VOLUME 10.9 7-11 fL NRBC % AUTO 0.0 <1 % NRBC # AUTO 0.00 <0.1 x10-3/uL Note Original Ordering Provider: WINSTON BUCHANAN MD [employer], a member of [address] [address] Color Card Maker - Margie Farrell MD CBC Reviewed date:03/13/2024 03:23:54 PM Interpretation: Performing Lab: Notes/Report: Note Original Ordering Provider: WINSTON BUCHANAN MD [employer], a member of [address] [address] Color Card Maker - Margie Farrell MD WBC 10.9 4.8-10.8 x10-3/uL RBC 3.8 4.5-5.5 x10-6/uL HEMOGLOBIN 10.7 13.5-17.5 g/dL HEMATOCRIT 36.9 42-54 % MCV 97.4 79-98 fL MCH 28.2 27-32 pg MCHC 29.0 32-37 g/dL RDW 17.2 11-15 % PLT COUNT 196 130-400 x10-3/uL MEAN PLATELET VOLUME 11.2 7-11 fL NRBC % AUTO 0.0 <1 % NRBC # AUTO 0.00 <0.1 x10-3/uL Note Original Ordering Provider: WINSTON BUCHANAN MD [employer], a member of [address] [address] Color Card Maker - Margie Farrell MD CBC Reviewed date:03/13/2024 03:23:27 PM Interpretation: Performing Lab: Notes/Report: Note Original Ordering Provider: WINSTON BUCHANAN MD [employer], a member of [address] [address] Color Card Maker - Margie Farrell MD WBC 6.4 4.8-10.8 x10-3/uL RBC 4.0 4.5-5.5 x10-6/uL HEMOGLOBIN 11.3 13.5-17.5 g/dL HEMATOCRIT 37.8 42-54 % MCV 95.2 79-98 fL MCH 28.5 27-32 pg MCHC 29.9 32-37 g/dL RDW 17.2 11-15 % PLT COUNT 185 130-400 x10-3/uL MEAN PLATELET VOLUME 10.8 7-11 fL NRBC % AUTO 0.0 <1 % NRBC # AUTO 0.00 <0.1 x10-3/uL Note Original Ordering Provider: WINSTON BUCHANAN MD [employer], a member of [address] [address] Color Card Maker - Margie Farrell MD CBC Reviewed date:03/28/2024 09:51:01 AM Interpretation: Performing Lab: Notes/Report: Note Original Ordering Provider: WINSTON BUCHANAN MD [employer], a member of [address] [address] Color Card Maker - Margie Farrell MD WBC 5.9 4.8-10.8 x10-3/uL RBC 4.0 4.5-5.5 x10-6/uL HEMOGLOBIN 11.8 13.5-17.5 g/dL HEMATOCRIT 38.8 42-54 % MCV 96.3 79-98 fL MCH 29.3 27-32 pg MCHC 30.4 32-37 g/dL RDW 16.9 11-15 % PLT COUNT 196 130-400 x10-3/uL MEAN PLATELET VOLUME 11.3 7-11 fL NRBC % AUTO 0.0 <1 % NRBC # AUTO 0.00 <0.1 x10-3/uL Note Original Ordering Provider: WINSTON BUCHANAN MD [employer], a member of [address] [address] Color Card Maker - Margie Farrell MD CBC Reviewed date:03/28/2024 09:56:31 AM Interpretation: Performing Lab: Notes/Report: Note Original Ordering Provider: WINSTON BUCHANAN MD [employer], a member of [address] [address] Color Card Maker - Margie Farrell MD WBC 7.4 4.8-10.8 x10-3/uL RBC 4.0 4.5-5.5 x10-6/uL HEMOGLOBIN 11.3 13.5-17.5 g/dL HEMATOCRIT 37.4 42-54 % MCV 94.7 79-98 fL MCH 28.6 27-32 pg MCHC 30.2 32-37 g/dL RDW 16.4 11-15 % PLT COUNT 200 130-400 x10-3/uL MEAN PLATELET VOLUME 11.0 7-11 fL NRBC % AUTO 0.0 <1 % NRBC # AUTO 0.00 <0.1 x10-3/uL Note Original Ordering Provider: WINSTON BUCHANAN MD [employer], a member of [address] [address] Color Card Maker - Margie Farrell MD CBC Reviewed date:03/28/2024 09:56:44 AM Interpretation: Performing Lab: Notes/Report: Note Original Ordering Provider: WINSTON BUCHANAN MD [employer], a member of [address] [address] Color Card Maker - Margie Farrell MD WBC 10.6 4.8-10.8 x10-3/uL RBC 3.8 4.5-5.5 x10-6/uL HEMOGLOBIN 10.8 13.5-17.5 g/dL HEMATOCRIT 36.9 42-54 % MCV 96.1 79-98 fL MCH 28.1 27-32 pg MCHC 29.3 32-37 g/dL RDW 16.7 11-15 % PLT COUNT 166 130-400 x10-3/uL MEAN PLATELET VOLUME 11.5 7-11 fL NRBC % AUTO 0.0 <1 % NRBC # AUTO 0.00 <0.1 x10-3/uL Note Original Ordering Provider: WINSTON BUCHANAN MD [employer], [place] [address] Color Card Maker - Margie Farrell MD CBC Reviewed date:03/28/2024 09:59:30 AM Interpretation: Performing Lab: Notes/Report: Note Original Ordering Provider: WINSTON BUCHANAN MD [employer], [place] [address] Color Card Maker - Margie Farrell MD WBC 7.2 4.8-10.8 x10-3/uL RBC 3.9 4.5-5.5 x10-6/uL HEMOGLOBIN 11.0 13.5-17.5 g/dL HEMATOCRIT 36.5 42-54 % MCV 93.4 79-98 fL MCH 28.1 27-32 pg MCHC 30.1 32-37 g/dL RDW 16.4 11-15 % PLT COUNT 197 130-400 x10-3/uL MEAN PLATELET VOLUME 11.3 7-11 fL NRBC % AUTO 0.0 <1 % NRBC # AUTO 0.00 <0.1 x10-3/uL Note Original Ordering Provider: WINSTON BUCHANAN MD [employer], [place] [address] Color Card Maker - Margie Farrell MD CBC Reviewed date:03/20/2024 10:58:57 AM Interpretation: Performing Lab: Notes/Report: Note Original Ordering Provider: WINSTON BUCHANAN MD [employer], a member of [address] [address] Color Card Maker - Margie Farrell MD WBC 8.2 4.8-10.8 x10-3/uL RBC 4.1 4.5-5.5 x10-6/uL HEMOGLOBIN 11.7 13.5-17.5 g/dL HEMATOCRIT 37.9 42-54 % MCV 93.1 79-98 fL MCH 28.7 27-32 pg MCHC 30.9 32-37 g/dL RDW 16.3 11-15 % PLT COUNT 201 130-400 x10-3/uL MEAN PLATELET VOLUME 10.7 7-11 fL NRBC % AUTO 0.0 <1 % NRBC # AUTO 0.00 <0.1 x10-3/uL Note Original Ordering Provider: WINSTON BUCHANAN MD [employer], a member of [address] [address] Color Card Maker - Margie Farrell MD CBC Reviewed date:03/20/2024 10:48:58 AM Interpretation: Performing Lab: Notes/Report: Note Original Ordering Provider: WINSTON BUCHANAN MD [employer], a member of [address] [address] Color Card Maker - Margie Farrell MD WBC 8.3 4.8-10.8 x10-3/uL RBC 3.9 4.5-5.5 x10-6/uL HEMOGLOBIN 10.9 13.5-17.5 g/dL HEMATOCRIT 37.1 42-54 % MCV 94.2 79-98 fL MCH 27.7 27-32 pg MCHC 29.4 32-37 g/dL RDW 16.3 11-15 % PLT COUNT 190 130-400 x10-3/uL MEAN PLATELET VOLUME 10.3 7-11 fL NRBC % AUTO 0.0 <1 % NRBC # AUTO 0.00 <0.1 x10-3/uL Note Original Ordering Provider: WINSTON BUCHANAN MD [employer], a member of [address] [address] Color Card Maker - Margie Farrell MD CBC Reviewed date:03/28/2024 10:10:39 AM Interpretation: Performing Lab: Notes/Report: Note Original Ordering Provider: WINSTON BUCHANAN MD [employer], a member of [address] [address] Color Card Maker - Margie Farrell MD WBC 7.4 4.8-10.8 x10-3/uL RBC 4.0 4.5-5.5 x10-6/uL HEMOGLOBIN 11.1 13.5-17.5 g/dL HEMATOCRIT 36.3 42-54 % MCV 91.7 79-98 fL MCH 28.0 27-32 pg MCHC 30.6 32-37 g/dL RDW 16.3 11-15 % PLT COUNT 202 130-400 x10-3/uL MEAN PLATELET VOLUME 10.5 7-11 fL NRBC % AUTO 0.0 <1 % NRBC # AUTO 0.00 <0.1 x10-3/uL Note Original Ordering Provider: WINSTON BUCHANAN MD [employer], a member of [address] [address] Color Card Maker - Margie Farrell MD CBC Reviewed date:03/28/2024 10:14:11 AM Interpretation: Performing Lab: Notes/Report: Note Original Ordering Provider: WINSTON BUCHANAN MD [employer], a member of [address] [address] Color Card Maker - Margie Farrell MD WBC 7.1 4.8-10.8 x10-3/uL RBC 4.5 4.5-5.5 x10-6/uL HEMOGLOBIN 12.7 13.5-17.5 g/dL HEMATOCRIT 40.9 42-54 % MCV 90.1 79-98 fL MCH 28.0 27-32 pg MCHC 31.1 32-37 g/dL RDW 16.5 11-15 % PLT COUNT 219 130-400 x10-3/uL MEAN PLATELET VOLUME 10.5 7-11 fL NRBC % AUTO 0.0 <1 % NRBC # AUTO 0.00 <0.1 x10-3/uL Note Original Ordering Provider: WINSTON BUCHANAN MD [employer], a member of [address] [address] Color Card Maker - Margie Farrell MD CBC Reviewed date:04/02/2024 09:19:17 AM Interpretation: Performing Lab: Notes/Report: Note Original Ordering Provider: WINSTON BUCHANAN MD [employer], a member of [address] [address] Color Card Maker - Margie Farrell MD WBC 8.2 4.8-10.8 x10-3/uL RBC 4.1 4.5-5.5 x10-6/uL HEMOGLOBIN 11.5 13.5-17.5 g/dL HEMATOCRIT 37.7 42-54 % MCV 91.3 79-98 fL MCH 27.8 27-32 pg MCHC 30.5 32-37 g/dL RDW 16.8 11-15 % PLT COUNT 191 130-400 x10-3/uL MEAN PLATELET VOLUME 10.3 7-11 fL NRBC % AUTO 0.0 <1 % NRBC # AUTO 0.00 <0.1 x10-3/uL Note Original Ordering Provider: WINSTON BUCHANAN MD [employer] [address] Color Card Maker - Margie Farrell MD CBC Reviewed date:04/02/2024 09:19:17 AM Interpretation: Performing Lab: Notes/Report: Note Original Ordering Provider: WINSTON BUCHANAN MD [employer], a member of [address] [address] Color Card Maker - Margie Farrell MD WBC 7.7 4.8-10.8 x10-3/uL RBC 4.1 4.5-5.5 x10-6/uL HEMOGLOBIN 11.3 13.5-17.5 g/dL HEMATOCRIT 37.4 42-54 % MCV 92.1 79-98 fL MCH 27.8 27-32 pg MCHC 30.2 32-37 g/dL RDW 16.8 11-15 % PLT COUNT 181 130-400 x10-3/uL MEAN PLATELET VOLUME 11.1 7-11 fL NRBC % AUTO 0.0 <1 % NRBC # AUTO 0.00 <0.1 x10-3/uL Note Original Ordering Provider: WINSTON BUCHANAN MD [employer], a member of [address] [address] Color Card Maker - Margie Farrell MD CBC Reviewed date:04/24/2024 12:04:35 PM Interpretation: Performing Lab: Notes/Report: Note Original Ordering Provider: WINSTON BUCHANAN MD [employer], a member of [address] [address] Color Card Maker - Margie Farrell MD WBC 8.2 4.8-10.8 x10-3/uL RBC 4.2 4.5-5.5 x10-6/uL HEMOGLOBIN 11.8 13.5-17.5 g/dL HEMATOCRIT 38.5 42-54 % MCV 91.0 79-98 fL MCH 27.9 27-32 pg MCHC 30.6 32-37 g/dL RDW 17.4 11-15 % PLT COUNT 187 130-400 x10-3/uL MEAN PLATELET VOLUME 11.0 7-11 fL NRBC % AUTO 0.0 <1 % NRBC # AUTO 0.00 <0.1 x10-3/uL Note Original Ordering Provider: WINSTON BUCHANAN MD [employer] [address] Color Card Maker - Marige Farrell MD CBC Reviewed date:04/26/2024 11:19:36 AM Interpretation: Performing Lab: Notes/Report: Note Original Ordering Provider: WINSTON BUCHANAN MD [employer], a member of [address] [address] Color Card Maker - Margie Farrell MD WBC 8.7 4.8-10.8 x10-3/uL RBC 4.5 4.5-5.5 x10-6/uL HEMOGLOBIN 12.5 13.5-17.5 g/dL HEMATOCRIT 40.4 42-54 % MCV 90.8 79-98 fL MCH 28.1 27-32 pg MCHC 30.9 32-37 g/dL RDW 17.9 11-15 % PLT COUNT 190 130-400 x10-3/uL MEAN PLATELET VOLUME 11.1 7-11 fL NRBC % AUTO 0.0 <1 % NRBC # AUTO 0.00 <0.1 x10-3/uL Note Original Ordering Provider: WINSTON BUCHANAN MD [employer], a member of [address] [address] Color Card Maker - Margie Farrell MD GLYCOHEMOGLOBIN PROFILE Reviewed date:02/20/2024 02:04:41 PM Interpretation: Performing Lab: Notes/Report: GLYCATED HEMOGLOBIN A1C 6.1 <6.5 % ESTIMATED AVERAGE GLUCOSE 128 COMPREHENSIVE METABOLIC PANE L Reviewed date:01/26/2024 10:21:55 AM Interpretation: Performing Lab: Notes/Report: Note Original Orderi ng Provider: WINSTON BUCHANAN MD GLUCOSE 231 70-100 mg/dL Reference range applicable to fasting specimens only BUN 78 5-25 mg/dL CREAT 1.93 0.7-1.3 mg/dL GLOMERULAR FILTRATION RATE 34 >60 This eGFR result was calculated using the CKD-EPI 2020 Creatinine Equation SODIUM 139 135-145 mEq/L POTASSIUM 4.7 3.5-5.5 mmol/L CHLORIDE 107 96-110 mmol/L CO2 24 21-32 mmol/L ANION GAP 8 3-11 CALCIUM 9.2 8.5-10.5 mg/dL TOTAL PROTEIN 5.1 6.0-8.0 G/dL ALBUMIN 2.1 3.2-5.0 G/dL BILI,TOTAL 0.6 0.0-1.4 mg/dL SGOT 17 10-42 U/L SGPT 8 10-60 U/L ALK PHOS 77 42-121 U/L TSH CASCADE Reviewed date:01/26/2024 10:24:06 AM Interpretation: Performing Lab: Notes/Report: TSH CASCADE 2.38 0.40-4.00 uIU/ml VITAMIN B12 Reviewed date:01/26/2024 10:20:51 AM Interpretation: Performing Lab: Notes/Report: VITAMIN B12 457 250-900 pg/mL BASIC METABOLIC PANEL (BMP) Reviewed date:02/20/2024 02:06:11 PM Interpretation: Performing Lab: Notes/Report: GLUCOSE 254 70-100 mg/dL Reference range applicable to fasting specimens only BUN 38 5-25 mg/dL CREAT 1.34 0.7-1.3 mg/dL GLOMERULAR FILTRATION RATE 53 >60 This eGFR result was calculated using the CKD-EPI 2020 Creatinine Equation SODIUM 141 135-145 mEq/L POTASSIUM 4.6 3.5-5.5 mmol/L CHLORIDE 106 96-110 mmol/L CO2 32 21-32 mmol/L ANION GAP 3 3-11 CALCIUM 9.5 8.5-10.5 mg/dL BASIC METABOLIC PANEL (BMP) Reviewed date:03/13/2024 03:22:07 PM Interpretation: Performing Lab: Notes/Report: GLUCOSE 130 70-100 mg/dL Reference range applicable to fasting specimens only BUN 31 5-25 mg/dL CREAT 1.10 0.7-1.3 mg/dL GLOMERULAR FILTRATION RATE 67 >60 This eGFR result was calculated using the CKD-EPI 2021 Creatinine Equation SODIUM 143 135-145 mEq/L POTASSIUM 5.1 3.5-5.5 mmol/L CHLORIDE 111 96-110 mmol/L CO2 27 21-32 mmol/L ANION GAP 5 3-11 CALCIUM 9.5 8.5-10.5 mg/dL BASIC METABOLIC PANEL (BMP) Reviewed date:03/13/2024 03:24:21 PM Interpretation: Performing Lab: Notes/Report: GLUCOSE 126 70-100 mg/dL Reference range applicable to fasting specimens only BUN 53 5-25 mg/dL CREAT 1.86 0.7-1.3 mg/dL GLOMERULAR FILTRATION RATE 36 >60 This eGFR result was calculated using the CKD-EPI 2020 Creatinine Equation SODIUM 141 135-145 mEq/L POTASSIUM 4.0 3.5-5.5 mmol/L CHLORIDE 99 96-110 mmol/L CO2 34 21-32 mmol/L ANION GAP 8 3-11 CALCIUM 9.6 8.5-10.5 mg/dL BASIC METABOLIC PANEL (BMP) Reviewed date:03/13/2024 03:23:59 PM Interpretation: Performing Lab: Notes/Report: GLUCOSE 118 70-100 mg/dL Reference range applicable to fasting specimens only BUN 40 5-25 mg/dL CREAT 1.39 0.7-1.3 mg/dL GLOMERULAR FILTRATION RATE 51 >60 This eGFR result was calculated using the CKD-EPI 202 Creatinine Equation SODIUM 142 135-145 mEq/L POTASSIUM 4.4 3.5-5.5 mmol/L CHLORIDE 104 96-110 mmol/L CO2 35 21-32 mmol/L ANION GAP 3 3-11 CALCIUM 9.6 8.5-10.5 mg/dL BASIC METABOLIC PANEL (BMP) Reviewed date:03/28/2024 10:00:06 AM Interpretation: Performing Lab: Notes/Report: GLUCOSE 92 70-100 mg/dL Reference range applicable to fasting specimens only BUN 58 5-25 mg/dL CREAT 1.47 0.7-1.3 mg/dL GLOMERULAR FILTRATION RATE 48 >60 This eGFR result was calculated using the CKD-EPI 202 Creatinine Equation SODIUM 141 135-145 mEq/L POTASSIUM 3.9 3.5-5.5 mmol/L CHLORIDE 103 96-110 mmol/L CO2 32 21-32 mmol/L ANION GAP 6 3-11 CALCIUM 9.4 8.5-10.5 mg/dL BASIC METABOLIC PANEL (BMP) Reviewed date:03/28/2024 09:56:53 AM Interpretation: Performing Lab: Notes/Report: GLUCOSE 194 70-100 mg/dL Reference range applicable to fasting specimens only BUN 55 5-25 mg/dL CREAT 1.64 0.7-1.3 mg/dL GLOMERULAR FILTRATION RATE 42 >60 This eGFR result was calculated using the CKD-EPI 2020 Creatinine Equation SODIUM 140 135-145 mEq/L POTASSIUM 4.0 3.5-5.5 mmol/L CHLORIDE 102 96-110 mmol/L CO2 31 21-32 mmol/L ANION GAP 7 3-11 CALCIUM 10.0 8.5-10.5 mg/dL BASIC METABOLIC PANEL (BMP) Reviewed date:03/28/2024 09:59:06 AM Interpretation: Performing Lab: Notes/Report: GLUCOSE 74 70-100 mg/dL Reference range applicable to fasting specimens only BUN 50 5-25 mg/dL CREAT 1.29 0.7-1.3 mg/dL GLOMERULAR FILTRATION RATE 56 >60 This eGFR result was calculated using the CKD-EPI 2020 Creatinine Equation SODIUM 143 135-145 mEq/L POTASSIUM 4.1 3.5-5.5 mmol/L CHLORIDE 104 96-110 mmol/L CO2 33 21-32 mmol/L ANION GAP 6 3-11 CALCIUM 9.7 8.5-10.5 mg/dL BASIC METABOLIC PANEL (BMP) Reviewed date:03/28/2024 09:55:36 AM Interpretation: Performing Lab: Notes/Report: GLUCOSE 76 70-100 mg/dL Reference range applicable to fasting specimens only BUN 59 5-25 mg/dL CREAT 1.65 0.7-1.3 mg/dL GLOMERULAR FILTRATION RATE 41 >60 This eGFR result was calculated using the CKD-EPI 2020 Creatinine Equation SODIUM 143 135-145 mEq/L POTASSIUM 4.1 3.5-5.5 mmol/L CHLORIDE 102 96-110 mmol/L CO2 35 21-32 mmol/L ANION GAP 6 3-11 CALCIUM 9.8 8.5-10.5 mg/dL BASIC METABOLIC PANEL (BMP) Reviewed date:02/16/2024 10:52:16 AM Interpretation: Performing Lab: Notes/Report: GLUCOSE 106 70-100 mg/dL Reference range applicable to fasting specimens only BUN 35 5-25 mg/dL CREAT 1.45 0.7-1.3 mg/dL GLOMERULAR FILTRATION RATE 48 >60 This eGFR result was calculated using the CKD-EPI 2020 Creatinine Equation SODIUM 141 135-145 mEq/L POTASSIUM 4.7 3.5-5.5 mmol/L CHLORIDE 110 96-110 mmol/L CO2 24 21-32 mmol/L ANION GAP 7 3-11 CALCIUM 8.9 8.5-10.5 mg/dL BASIC METABOLIC PANEL (BMP) Reviewed date:02/13/2024 09:32:43 AM Interpretation: Performing Lab: Notes/Report: GLUCOSE 128 70-100 mg/dL Reference range applicable to fasting specimens only BUN 27 5-25 mg/dL CREAT 1.16 0.7-1.3 mg/dL GLOMERULAR FILTRATION RATE 63 >60 This eGFR result was calculated using the CKD-EPI 2020 Creatinine Equation SODIUM 142 135-145 mEq/L POTASSIUM 4.8 3.5-5.5 mmol/L CHLORIDE 110 96-110 mmol/L CO2 26 21-32 mmol/L ANION GAP 6 3-11 CALCIUM 9.8 8.5-10.5 mg/dL BASIC METABOLIC PANEL (BMP) Reviewed date:02/13/2024 09:30:50 AM Interpretation: Performing Lab: Notes/Report: GLUCOSE 109 70-100 mg/dL Reference range applicable to fasting specimens only BUN 25 5-25 mg/dL CREAT 1.26 0.7-1.3 mg/dL GLOMERULAR FILTRATION RATE 57 >60 This eGFR result was calculated using the CKD-EPI 2020 Creatinine Equation SODIUM 142 135-145 mEq/L POTASSIUM 4.7 3.5-5.5 mmol/L CHLORIDE 110 96-110 mmol/L CO2 27 21-32 mmol/L ANION GAP 5 3-11 CALCIUM 9.3 8.5-10.5 mg/dL BASIC METABOLIC PANEL (BMP) Reviewed date:02/13/2024 09:11:16 AM Interpretation: Performing Lab: Notes/Report: GLUCOSE 82 70-100 mg/dL Reference range applicable to fasting specimens only BUN 23 5-25 mg/dL CREAT 1.14 0.7-1.3 mg/dL GLOMERULAR FILTRATION RATE 65 >60 This eGFR result was calculated using the CKD-EPI 2020 Creatinine Equation SODIUM 143 135-145 mEq/L POTASSIUM 4.5 3.5-5.5 mmol/L CHLORIDE 110 96-110 mmol/L CO2 27 21-32 mmol/L ANION GAP 6 3-11 CALCIUM 9.6 8.5-10.5 mg/dL BASIC METABOLIC PANEL ([facility]) Reviewed date:02/13/2024 09:19:00 AM Interpretation: Performing Lab: Notes/Report: GLUCOSE 113 70-100 mg/dL Reference range applicable to fasting specimens only BUN 29 5-25 mg/dL CREAT 1.15 0.7-1.3 mg/dL GLOMERULAR FILTRATION RATE 64 >60 This eGFR result was calculated using the CKD-EPI 2020 Creatinine Equation SODIUM 142 135-145 mEq/L POTASSIUM 5.1 3.5-5.5 mmol/L CHLORIDE 110 96-110 mmol/L CO2 27 21-32 mmol/L ANION GAP 5 3-11 CALCIUM 9.7 8.5-10.5 mg/dL BASIC METABOLIC PANEL ([facility]) Reviewed date:01/26/2024 10:36:01 AM Interpretation: Performing Lab: Notes/Report: GLUCOSE 113 70-100 mg/dL Reference range applicable to fasting specimens only BUN 41 5-25 mg/dL CREAT 1.38 0.7-1.3 mg/dL GLOMERULAR FILTRATION RATE 51 >60 This eGFR result was calculated using the CKD-EPI 2020 Creatinine Equation SODIUM 142 135-145 mEq/L POTASSIUM 5.2 3.5-5.5 mmol/L CHLORIDE 110 96-110 mmol/L CO2 24 21-32 mmol/L ANION GAP 8 3-11 CALCIUM 9.8 8.5-10.5 mg/dL BASIC METABOLIC PANEL ([facility]) Reviewed date:01/26/2024 10:24:06 AM Interpretation: Performing Lab: Notes/Report: GLUCOSE 222 70-100 mg/dL Reference range applicable to fasting specimens only BUN 45 5-25 mg/dL CREAT 1.33 0.7-1.3 mg/dL GLOMERULAR FILTRATION RATE 54 >60 This eGFR result was calculated using the CKD-EPI 2020 Creatinine Equation SODIUM 142 135-145 mEq/L POTASSIUM 5.2 3.5-5.5 mmol/L CHLORIDE 110 96-110 mmol/L CO2 25 21-32 mmol/L ANION GAP 7 3-11 CALCIUM 8.9 8.5-10.5 mg/dL BASIC METABOLIC PANEL (BMP) Reviewed date:04/26/2024 11:19:31 AM Interpretation: Performing Lab: Notes/Report: GLUCOSE 132 70-100 mg/dL Reference range applicable to fasting specimens only BUN 66 5-25 mg/dL CREAT 1.83 0.7-1.3 mg/dL GLOMERULAR FILTRATION RATE 36 >60 This eGFR result was calculated using the CKD-EPI 2020 Creatinine Equation SODIUM 140 135-145 mEq/L POTASSIUM 4.1 3.5-5.5 mmol/L CHLORIDE 106 96-110 mmol/L CO2 28 21-32 mmol/L ANION GAP 6 3-11 CALCIUM 9.3 8.5-10.5 mg/dL BASIC METABOLIC PANEL (BMP) Reviewed date:04/26/2024 11:18:07 AM Interpretation: Performing Lab: Notes/Report: GLUCOSE 101 70-100 mg/dL Reference range applicable to fasting specimens only BUN 64 5-25 mg/dL CREAT 1.75 0.7-1.3 mg/dL GLOMERULAR FILTRATION RATE 38 >60 This eGFR result was calculated using the CKD-EPI 2020 Creatinine Equation SODIUM 142 135-145 mEq/L POTASSIUM 4.0 3.5-5.5 mmol/L CHLORIDE 104 96-110 mmol/L CO2 31 21-32 mmol/L ANION GAP 7 3-11 CALCIUM 9.4 8.5-10.5 mg/dL BASIC METABOLIC PANEL (BMP) Reviewed date:04/02/2024 09:19:17 AM Interpretation: Performing Lab: Notes/Report: GLUCOSE 239 70-100 mg/dL Reference range applicable to fasting specimens only BUN 69 5-25 mg/dL CREAT 1.82 0.7-1.3 mg/dL GLOMERULAR FILTRATION RATE 37 >60 This eGFR result was calculated using the CKD-EPI 2020 Creatinine Equation SODIUM 140 135-145 mEq/L POTASSIUM 3.9 3.5-5.5 mmol/L CHLORIDE 102 96-110 mmol/L CO2 29 21-32 mmol/L ANION GAP 9 3-11 CALCIUM 8.6 8.5-10.5 mg/dL BASIC METABOLIC PANEL (BMP) Reviewed date:04/02/2024 09:19:17 AM Interpretation: Performing Lab: Notes/Report: GLUCOSE 114 70-100 mg/dL Reference range applicable to fasting specimens only BUN 51 5-25 mg/dL CREAT 1.71 0.7-1.3 mg/dL GLOMERULAR FILTRATION RATE 40 >60 This eGFR result was calculated using the CKD-EPI 2021 Creatinine Equation SODIUM 141 135-145 mEq/L POTASSIUM 3.8 3.5-5.5 mmol/L CHLORIDE 103 96-110 mmol/L CO2 31 21-32 mmol/L ANION GAP 7 3-11 CALCIUM 9.8 8.5-10.5 mg/dL BASIC METABOLIC PANEL (BMP) Reviewed date:03/28/2024 10:17:55 AM Interpretation: Performing Lab: Notes/Report: GLUCOSE 166 70-100 mg/dL Reference range applicable to fasting specimens only BUN 51 5-25 mg/dL CREAT 1.43 0.7-1.3 mg/dL GLOMERULAR FILTRATION RATE 49 >60 This eGFR result was calculated using the CKD-EPI 2020 Creatinine Equation SODIUM 142 135-145 mEq/L POTASSIUM 4.2 3.5-5.5 mmol/L CHLORIDE 104 96-110 mmol/L CO2 31 21-32 mmol/L ANION GAP 7 3-11 CALCIUM 9.9 8.5-10.5 mg/dL BASIC METABOLIC PANEL (BMP) Reviewed date:03/28/2024 10:15:42 AM Interpretation: Performing Lab: Notes/Report: GLUCOSE 125 70-100 mg/dL Reference range applicable to fasting specimens only BUN 59 5-25 mg/dL CREAT 1.58 0.7-1.3 mg/dL GLOMERULAR FILTRATION RATE 44 >60 This eGFR result was calculated using the CKD-EPI 2020 Creatinine Equation SODIUM 142 135-145 mEq/L POTASSIUM 3.8 3.5-5.5 mmol/L CHLORIDE 105 96-110 mmol/L CO2 31 21-32 mmol/L ANION GAP 6 3-11 CALCIUM 9.7 8.5-10.5 mg/dL BASIC METABOLIC PANEL (BMP) Reviewed date:03/20/2024 10:48:18 AM Interpretation: Performing Lab: Notes/Report: GLUCOSE 115 70-100 mg/dL Reference range applicable to fasting specimens only BUN 56 5-25 mg/dL CREAT 1.64 0.7-1.3 mg/dL GLOMERULAR FILTRATION RATE 42 >60 This eGFR result was calculated using the CKD-EPI 2020 Creatinine Equation SODIUM 143 135-145 mEq/L POTASSIUM 3.9 3.5-5.5 mmol/L CHLORIDE 105 96-110 mmol/L CO2 33 21-32 mmol/L ANION GAP 5 3-11 CALCIUM 8.9 8.5-10.5 mg/dL BASIC METABOLIC PANEL (BMP) Reviewed date:03/20/2024 10:53:23 AM Interpretation: Performing Lab: Notes/Report: GLUCOSE 89 70-100 mg/dL Reference range applicable to fasting specimens only BUN 52 5-25 mg/dL CREAT 1.61 0.7-1.3 mg/dL GLOMERULAR FILTRATION RATE 43 >60 This eGFR result was calculated using the CKD-EPI 2020 Creatinine Equation SODIUM 143 135-145 mEq/L POTASSIUM 4.0 3.5-5.5 mmol/L CHLORIDE 104 96-110 mmol/L CO2 32 21-32 mmol/L ANION GAP 7 3-11 CALCIUM 9.4 8.5-10.5 mg/dL PROSTATIC SPECIFIC ANTIGEN Reviewed date:03/13/2024 03:15:27 PM Interpretation: Performing Lab: Notes/Report: PROSTATIC SPECIFIC ANTIGEN 1.9 0.0-4.0 ng/mL The Siemens Advia Coridonaur Chemiluminescent Immunoassay is used. Results obtained with different assay methods or kits cannot be used interchangeably. Results cannot be interpreted as absolute evidence of the presence or absence of malignant disease Note [employer], [place] [address] Color Card Maker - Margie Farrell MD FOLATE Reviewed date:01/26/2024 10:20:51 AM Interpretation: Performing Lab: Notes/Report: FOLATE 8.7 2.8-17.0 ng/ml CT CHEST WO CONTRAST Reviewed date:07/15/2024 11:13:09 AM Interpretation: Performing Lab: Notes/Report: Note See Note [facility], a [facility] Patient Name: SHARLENE HOLGUIN Date of : 1940 Reason for Exam: PULMONARY NODULE Exam Date: 07/09/2024 [id number] EST Report Status: Final Ordering Provider: TRISTAN PETTIT PCP: MIGUEL PETTIT CT chest without contrast HISTORY: Pulmonary nodule. COMPARISON: None. TECHNIQUE: Noncontra st CT was performed of the chest. Reformatted images were provided. DOSE: CTDIvol: 27.5/39.4mGy. Total exam DLP: 1189.7mGy-cm FINDINGS: There are several ve ry small pulmonary nodules noted in the right and left chest. 3 mm nodule is noted in the left upper lobe (series 4 image 122). No consolidation or effusion. Mediastinum appears normal. No abnormal lymphadenopathy. Heart size is normal without effusion. Mild plaque in the aorta without aneurysm. Chest wall appears within normal limits. No abnormal lymphadenopathy is noted. Limited views of the upper abdomen appear within normal limits. Mild degenerative changes of the spine. IMPRESSION: Only small pulmonary nodules are noted. If the patient is considered low risk for lung cancer, no further follow-up is needed. If the patient is considered high risk, follow-up examination may be considered in one year. -------- FINAL REPOR T -------- Dictated By: Yousif Boland Dictated Date: 07/10/2024 10:54 ET Assigned Physician: Yousif Moss Reviewed and Electronically Signed By: Yousif Moss Signed Date: 024 11:16 ET Workstation ID: [id number] Transcribed By: Self Edit Transcribed Date: 07/10/2024 10:54 ET REASON FOR REFERRAL Reason [facility] Eval Diagnosis 1 Polypharmacy (Z79.89 9) Diagnosis 2 Chronic kidney disea se, stage 2 (mild) (N18.2) Diagnosis 3 Chronic obstructive pulmonary disease, unspecified (J44.9) Diagnosis 4 Type 2 diabetes eduardo itus with unspecified complications (E11.8) Diagnosis 5 Sleep apnea, unspeci fied type (G47.30) Diagnosis 6 Atrial fibrillation, unspecified type (I48.91) Referral Organization [facility] Referring Provider First Name TRISTAN Referring Provider Last Name MAL Referring Provider Speciality Internal M edicine Referred Provider Specialty Other Medica l Care General Notes [facility], P [phone], F [phone] Clinical Notes Melissa Rivas 2023 10:43:40 AM >[facility] 10:26:16 AM > The patient is scheduled for admission on 04/19/2024. Pt is aware Referral Priority Routine MEDICATIONS Medication SIG (Take, Route, Frequency, Duration) Notes Start Date End Date Status Clotrimazole-Betame thasone 1-0.05 % APPLY TO AFFECTED AREA ON SKIN TWICE A DAY FOR 2 WEEKS for 30 Active Jardiance 10 MG 1 tablet Orally Once a day Active LORazepam 0.5 MG 1 tablet Orally Once a day prn for 30 days 02/09/2023 Not-Taking Colchicine 0.6 MG 1 tablet Orally once daily for 30 medication to be discontinued December 31 Not-Taking Eliquis 2.5 MG once Orally twice a day Active Carvedilol 6.25 MG 1 tablet with food Orally Twice a day Active Albuterol Sulfate 108 (90 Base) MCG/ACT 1 puff as needed Inhalation every 4 hrs Not-Taking Montelukast Sodium 10 MG 1 tablet Orally Once a day for 30 day(s) Active Simvastatin 40 MG 1 tablet in the evening Orally Once a day for 30 day(s) Active Allopurinol 300 MG 1 tablet Orally Once a day for 30 day(s) Active Basaglar KwikPen 100 UNIT/ML 80 units Subcutaneous bedtime Active Finasteride 5 MG 1 tablet Orally Once a day Active NovoLOG FlexPen 100 UNIT/ML 30-35 units Subcutaneous daily sliding scale Active Trelegy Ellipta 100-62.5-25 MCG/INH INHALE 1 PUFF BY MOUTH EVERY DAY for 90 Active Nitroglycerin 0.4 MG one tablet Sublingual Once a day or as needed for 30 days Active Vitamin D (Cholecalciferol) 25 MCG (1000 UT) 1 capsule Orally Once a day Not-Taking Entresto 24-26 MG 1 tablet Orally Twice a day Not-Taking Trulicity 0.75 MG/0.5ML as directed Subcutaneous Active Torsemide 40 MG 1 tablet Orally twice a day Active Tamsulosin HCl 0.4 MG 1 capsule Orally Once a day Active Insulin Pen Needle 32G X 6 MM intro 6 times daily for dx e11.8 for 90 days 05/05/2023 Active oxyCODONE HCl 5 MG 1 tablet as needed Orally twice a day for 15 days 06/24/2024 Active Vitamin E 100 UNIT as directed Orally Not-Taking FreeStyle Teresa 2 [place] - USE TO SCAN FREESTYLE TERESA 2 SENSORS TO MONITOR BLOOD GLUCOSE for 30 Days Not-Taking prednisoLONE Acetate 1 % 1 drop into affected eye Ophthalmic Twice a day Not-Taking MiraLax 17 GM/SCOOP as directed Orally Active Ketorolac Tromethamine 0.5 % 1 drop into affected eye as needed Ophthalmic Four times a day Not-Taking OneTouch Ultra Test - as directed In Vitro Active Triamcinolone Acetonide 0.1 % 1 application Externally Two times a Week Not-Taking Albuterol Sulfate HFA 108 (90 Base) MCG/ACT 1 puff as needed Inhalation every 4 hrs Active Senna 8.6 MG one tab Orally Once a day Active Ferrous Sulfate 325 (65 Fe) MG 1 tablet Orally Three times a Week Not-Taking Fluticasone Propionate 50 MCG/ACT 1 spray in each nostril Nasally Once a day Active IMMUNIZATIONS Vaccine Route Administration Date Status Comme nts influenza IM Intramuscular 06/15/2022 Administered influenza IM Intramuscular 06/22/2023 Administered influenza IM Intramuscular 06/24/2024 Administered SOCIAL HISTORY Tobacco Use: Social History Observation Description Date Details (start date - stop date) Never Smoker NA - NA Sex Assigned At : Social History Observation Description Sex Assigned At Unknown Tobacco Use/Smoking Question Answer Notes Are you a nonsmoker PROBLEMS Problem Type ICD Code Onset Dates Problem Status W/U Status Risk SNOMED Code Notes Problem 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) Active confirmed Diabetic catara ct (54293939) Problem Type 2 diabetes mellitus with diabetic chronic kidney disease (E11.22) Active confirmed 50406334485436 Problem Type 2 diabetes mellitus with other specified complication (E11.69) Active confirmed 70781154 Problem Type 2 diabetes mellitus with unspecified complications (E11.8) Active confirmed Disorder due to type 2 diabetes mellitus (663644961) Problem Mixed hyperlipidemia (E78.2) Active confirmed 308988601 Problem Hypertensive chronic kidney disease with stage 1 through stage 4 chronic kidney disease, or unspecified chronic kidney disease (I12.9) Active confirmed 524471272239746 Problem Hypertensive heart and chronic kidney disease with heart failure and stage 1 through stage 4 chronic kidney disease, or unspecified chronic kidney disease (I13.0) Active confirmed 03181152 Problem Chronic diastolic (congestive) heart failure (I50.32) Active confirmed Chronic diastol ic heart failure (434336510) Problem 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) Active confirmed 68002499 Problem Chronic obstructive pulmonary disease with (acute) exacerbation (J44.1) Active confirmed Acute exacerbat ion of chronic obstructive airways disease (512570002) Problem Chronic obstructive pulmonary disease, unspecified (J44.9) Active confirmed Chronic obstructive pulmonary disease (27064770) Problem 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) Active confirmed Skin ulcer of c senior living (125157287) Problem 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 (L97.909) Active confirmed 10712043 Problem Gout, unspecified (M10.9) Active confirmed Gout (31359621) Problem Chronic kidney disease, stage 2 (mild) (N18.2) Active confirmed Chronic kidne y disease stage 2 (513706311) Problem Hematuria, unspecified (R31.9) Active confirmed Hematuria (93234681) Problem Encounter for screening for other disorder (Z13.89) Active confirmed Encounter for symptom (115709995) Problem USP (current) use of insulin (Z79.4) Active confirmed 392508403 Problem Hyperlipidemia, unspecified (E78.5) Active confirmed Hyperlipidemia (18310303) Problem Essential (primary) hypertension (I10) Active confirmed Essential hypertension (44968441) Problem Obstructive sleep apnea syndrome (G47.33) Active confirmed 49792806 Problem Diverticulitis (K57.92) Active confirmed 902766441 Problem Lung nodule (R91.1) Active confirmed Solitary nodule of lung (250931257) Problem Atrial fibrillation, unspecified type (I48.91) Active confirmed 70032160 Problem Sleep apnea, unspecified type (G47.30) Active confirmed Sleep apnea (70689286) Problem Chronic kidney disease, stage 3b (N18.32) Active confirmed 354130334 Problem Pacemaker (Z95.0) Active confirmed 4415 85479 Problem Complication of diabetes mellitus (E11.8) Active confirmed Disorder due to type 2 diabetes mellitus (670252180) Problem Venous stasis dermatitis of both lower extremities (I87.2) Active confirmed 71275118 Problem Chronic diastolic heart failure (I50.32) Active confirmed 983516032 Problem ACP (advance care planning) (Z71.89) Active confirmed Counseling (189467678) Problem Chronic heart failure with preserved ejection fraction (I50.32) Active confirmed 245229058 Problem Depression screen (Z13.31) Active confirmed Depression screening (312821490) Problem Vitamin D3 deficiency (E55.9) Active confirmed Vitamin D deficiency (86262897) Problem Chronic kidney disease due to diabetes mellitus (E11.22) Active confirmed 854281616 VITAL SIGNS Heart Rate 61 /min 06/24/2024 Oximetry 96 % 06/24/2024 Blood pressure diastolic 60 mm Hg 06/24/2024 Height 68 in 06/24/2024 Blood pressure systolic 136 mm Hg 06/24/2024 Weight 253.8 lbs 12/23/2023 BMI 38.59 kg/m2 12/23/2023 Encounters Encounter Location Date Provider Diagnosis [facility] [address] [facility] [address] [address] 01/25/2024 TRISTAN PETTIT [facility] [address] [place] [address] 12/23/2023 FAMILIA MONIQUE Chronic venous stasi s dermatitis of left lower extremity I87.2 ; Varicose veins of unspecified lower extremity with ulcer of unspecified site I83.009 and 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 L97.909 [facility] [address] [place] [address] 05/01/2024 TRISTAN PETTIT Status post hip surg farhana Z98.890 ; Type 2 diabetes mellitus with unspecified complications E11.8 ; Essential (primary) hypertension I10 ; Atrial fibrillation, unspecified type I48.91 ; Mixed hyperlipidemia E78.2 and Chronic heart failure with preserved ejection fraction I50.32 [facility] [address] [place] [address] 06/24/2024 TRISTAN PETTIT Encounter for immunization Z23 ; Adult general medical exam Z00.00 ; Essential (primary) hypertension I10 ; Chronic obstructive pulmonary disease, unspecified J44.9 and Sleep apnea, unspecified type G47.[address] [facility] [address] [facility] [address] [address] 12/21/2023 TRISTAN PETTIT [facility] [address] [place] [address] 01/24/2024 TRISTAN PETTIT [facility] [address] [place] [address] 03/14/[address] [facility] [address] [place] [address] [facility] [address] [place] [address] 04/16/[address] [facility] [address] [place] [address] 04/23/[address] [facility] [address] [place] [address] 05/03/[address] [facility] [address] [place] [address] 05/09/[address] [facility] [address] [place] [address] 06/04/[address] [facility] [address] [place] [address] 06/20/2024 TALAL PETTIT [address] [place] [address] 06/21/[address] [facility] [address] [facility] [address] [place] [address] 06/24/[address] [facility] [address] [place] [address] 06/26/2024 TALAL PETTIT Lung nodule R91.[address] [facility] [address] [place] [address] 07/01/2024 TALAL PETTIT [address] [place] [address] 07/04/[address] [facility] [facility] [address] [place] [address] 07/10/[address] [facility] [address] [place] [address] 07/11/2024 VINNIE PIPER [address] [place] [address] 07/12/[address] [facility] [address] [place] [address] 08/02/2024 TALAL PETTIT ASSESSMENTS Encounter Date Diagnosis Assessment Notes Treatment Notes Treatment Clinical Notes Section Notes 12/23/2023 Chronic venous stasis dermatitis of left lower extremity (ICD-10 - I87.2) Discussed wound care and compression No indications for antibiotics at this time See wound care next week as normally scheduled Of note, some information is being carried forward from prior records for informational purposes only and is being cited so that efficiency, safety and quality of the patient's care is not compromised This note was prepared using voice recognition software and direct typing Please excuse inadvertent leather cartridge belt maker or typing errors, or uncorrected word substitutions Although every attempt has been made by the provider to proofread this document, occasional misspellings and typographical errors may still be present Due to the previous pandemic, and the use of personal protective equipment (PPE) This may decrease voice recognition accuracy Inadvertent leather cartridge belt maker errors may occur 05/01/2024 Type 2 diabetes mellitus with unspecified complications (ICD-10 - E11.8) Sharlene is an 84-year-old male with past medical history of type 2 diabetes hypertension, atrial fibrillation presenting for hospital follow-up after being discharged from rehab S/P broken femur and surgical replacement. #Follow-up status post hip surgery: Patient is in moderate pain, requiring use of wheelchair, and ambulating with some difficulty. Patient was discharged from [facility] on 04/20/24 and discharged home, relying on the care from his . Plan to request replacement braces for patient and follow-up in office in 6 weeks. #Diabetes: Controlled on Trulicity, plan to continue current medication regimen. Patient is currently being followed by endocrinology with last visit on 04/04/2024. #hyperlipidemia: Well-controlled well, will continue current medication regimen. #Atrial fibrillation: Patient is followed by cardiology and last visit was on 04/15/2024. Plan to continue Eliquis and carvedilol and plan to follow-up with routine pacemaker interrogations evaluate for atrial fibrillation burden. #Heart failure with preserved ejection fraction: Patient is asymptomatic and will continue torsemide and Entresto. All questions answered to patients satisfaction. Patient verbalized understanding of diagnosis and treatments explained. To call sooner prior to next visit it any questions/concerns arise. Case discussed with collaborating physician Dr. Pettit who reviewed the assessment and plan. Chart, medications, labs, vital signs reviewed. Dictation was accomplished with the use of 7fgame voice recognition software, prone to medical misidentifications and grammatical errors. This is unintentional and the practitioner does try to identify and correct these, but some could still be present. Please do not hesitate to contact practitioner for clarification. discussed HCP/MOLST form 05/01/2024 Status post hip surgery (ICD-10 - Z98.890) Sharlene is an 84-year-old male with past medical history of type 2 diabetes hypertension, atrial fibrillation presenting for hospital follow-up after being discharged from rehab S/P broken femur and surgical replacement. #Follow-up status post hip surgery: Patient is in moderate pain, requiring use of wheelchair, and ambulating with some difficulty. Patient was discharged from [facility] on 04/20/24 and discharged home, relying on the care from his . Plan to request replacement braces for patient and follow-up in office in 6 weeks. #Diabetes: Controlled on Trulicity, plan to continue current medication regimen. Patient is currently being followed by endocrinology with last visit on 04/04/2024. #hyperlipidemia: Well-controlled well, will continue current medication regimen. #Atrial fibrillation: Patient is followed by cardiology and last visit was on 04/15/2024. Plan to continue Eliquis and carvedilol and plan to follow-up with routine pacemaker interrogations evaluate for atrial fibrillation burden. #Heart failure with preserved ejection fraction: Patient is asymptomatic and will continue torsemide and Entresto. All questions answered to patients satisfaction. Patient verbalized understanding of diagnosis and treatments explained. To call sooner prior to next visit it any questions/concerns arise. Case discussed with collaborating physician Dr. Pettit who reviewed the assessment and plan. Chart, medications, labs, vital signs reviewed. Dictation was accomplished with the use of 7fgame voice recognition software, prone to medical misidentifications and grammatical errors. This is unintentional and the practitioner does try to identify and correct these, but some could still be present. Please do not hesitate to contact practitioner for clarification. discussed HCP/MOLST form 06/24/2024 Encounter for immunization (ICD-10 - Z23) Patient seen and examined. Comprehensive discussion was done on the following. 1. Nutrition: It is important to follow a healthy diet based on lots of vegetables and legumes and good fat. Avoid processed food and processed carbohydrates. Learn to prepare your own meals. Learn to read labels and avoid high fructose corn syrup, processed chemicals added to increase shelf life and preprepared meals. Avoid fast foods. Learn to eat slowly and plan meals for a week. Try to count calories and be mindful off daily calorie intake. Get into the habit of keeping an eye on your weight by using an appropriate scale. Learn to log exercise and discussed fitness Apps like [employer] which can help keep log off calories taken versus calories burned. Local food should be preferred. Discussed Dirty Dozen Versus Clean Fifteen. Discussed healthy supplements like fish oil, Tumeric, Curcumin, Melatonin, Resveratrol, Probiotics, Vitamin-D, Alpha-Lipoic acid, Vitamin-D and coconut oil. 2. It is important to exercise regularly. Is a good habit to walk at least 30-45 minutes a day. Gentle weightlifting with standard precautions to protect the back. Finding activity like cycling or hiking and get into the habit of engaging in it. Stretching before and after the exercises important. It is also important to contact me if there are any problems like shortness of breath, chest pain, back pain and joint or muscle pain associated with the exercise. 3. Discussed age appropriate screening guidelines. Colonoscopy needs to start at age 50 with stool for occult blood as appropriate. There is a new test that can test for genetic abnormalities in the stool sample. This would not replace a colonoscopy but could be used as a screening tool for patients who do not want a colonoscopy. We discussed the importance of early detection of colon cancer. 4. Discussed current PSA screening. PSA screening can be done in most patients between age 50 and 65. However early detection of prostate cancer needs to carefully be balanced with complications with treatment. These include incontinence, impotence etc. Each patient should decide if they would like to have this test. 5. Discussed safe driving and no use of smart phone while driving 6. Age-appropriate immunizations were discussed. A tetanus booster is needed every 10 years. Flu vaccine is recommended every year just before the start of the flu season. Shingles vaccine is recommended after age 50 but not all insurances cover it. Pneumonia vaccine is given after age 65 unless there are certain comorbidities for which it is started earlier. 7. Diagnostic labs were discussed. These could include CBC CMP and lipids with fasting blood glucose and insulin levels. Vitamin D and hemoglobin A1c testing might be appropriate. 8. Patient will have a surveillance lung cancer CAT scan which is due patient is currently not drinking alcohol. He is not smoking.. He has no depression he has chronic pain which is being managed. He has follow-up with orthopedics for his hip fracture he might go to [place] and will need to fly there in the winter.. [facility] healthcare proxy [place] for order order for life-sustaining treatment discussed. Follow-up advised with multiple subspecialist Medicare paperwork reviewed and appropriate immunizations recommended including flu COVID and pneumonia and follow-up advised 06/24/2024 Adult general medical exam (ICD-10 - Z00.00) Patient seen and examined. Comprehensive discussion was done on the following. 1. Nutrition: It is important to follow a healthy diet based on lots of vegetables and legumes and good fat. Avoid processed food and processed carbohydrates. Learn to prepare your own meals. Learn to read labels and avoid high fructose corn syrup, processed chemicals added to increase shelf life and preprepared meals. Avoid fast foods. Learn to eat slowly and plan meals for a week. Try to count calories and be mindful off daily calorie intake. Get into the habit of keeping an eye on your weight by using an appropriate scale. Learn to log exercise and discussed fitness Apps like Medigus which can help keep log off calories taken versus calories burned. Local food should be preferred. Discussed Dirty Dozen Versus Clean Fifteen. Discussed healthy supplements like fish oil, Tumeric, Curcumin, Melatonin, Resveratrol, Probiotics, Vitamin-D, Alpha-Lipoic acid, Vitamin-D and coconut oil. 2. It is important to exercise regularly. Is a good habit to walk at least 30-45 minutes a day. Gentle weightlifting with standard precautions to protect the back. Finding activity like cycling or hiking and get into the habit of engaging in it. Stretching before and after the exercises important. It is also important to contact me if there are any problems like shortness of breath, chest pain, back pain and joint or muscle pain associated with the exercise. 3. Discussed age appropriate screening guidelines. Colonoscopy needs to start at age 50 with stool for occult blood as appropriate. There is a new test that can test for genetic abnormalities in the stool sample. This would not replace a colonoscopy but could be used as a screening tool for patients who do not want a colonoscopy. We discussed the importance of early detection of colon cancer. 4. Discussed current PSA screening. PSA screening can be done in most patients between age 50 and 65. However early detection of prostate cancer needs to carefully be balanced with complications with treatment. These include incontinence, impotence etc. Each patient should decide if they would like to have this test. 5. Discussed safe driving and no use of smart phone while driving 6. Age-appropriate immunizations were discussed. A tetanus booster is needed every 10 years. Flu vaccine is recommended every year just before the start of the flu season. Shingles vaccine is recommended after age 50 but not all insurances cover it. Pneumonia vaccine is given after age 65 unless there are certain comorbidities for which it is started earlier. 7. Diagnostic labs were discussed. These could include CBC CMP and lipids with fasting blood glucose and insulin levels. Vitamin D and hemoglobin A1c testing might be appropriate. 8. Patient will have a surveillance lung cancer CAT scan which is due patient is currently not drinking alcohol. He is not smoking.. He has no depression he has chronic pain which is being managed. He has follow-up with orthopedics for his hip fracture he might go to [place] and will need to fly there in the winter.. [facility] healthcare proxy [place] for order order for life-sustaining treatment discussed. Follow-up advised with multiple subspecialist Medicare paperwork reviewed and appropriate immunizations recommended including flu COVID and pneumonia and follow-up advised 06/26/2024 Lung nodule (ICD-10 - R91.1) 06/24/2024 Essential (primary) hypertension (ICD-10 - I10) Patient seen and examined. Comprehensive discussion was done on the following. 1. Nutrition: It is important to follow a healthy diet based on lots of vegetables and legumes and good fat. Avoid processed food and processed carbohydrates. Learn to prepare your own meals. Learn to read labels and avoid high fructose corn syrup, processed chemicals added to increase shelf life and preprepared meals. Avoid fast foods. Learn to eat slowly and plan meals for a week. Try to count calories and be mindful off daily calorie intake. Get into the habit of keeping an eye on your weight by using an appropriate scale. Learn to log exercise and discussed fitness Apps like Medigus which can help keep log off calories taken versus calories burned. Local food should be preferred. Discussed Dirty Dozen Versus Clean Fifteen. Discussed healthy supplements like fish oil, Tumeric, Curcumin, Melatonin, Resveratrol, Probiotics, Vitamin-D, Alpha-Lipoic acid, Vitamin-D and coconut oil. 2. It is important to exercise regularly. Is a good habit to walk at least 30-45 minutes a day. Gentle weightlifting with standard precautions to protect the back. Finding activity like cycling or hiking and get into the habit of engaging in it. Stretching before and after the exercises important. It is also important to contact me if there are any problems like shortness of breath, chest pain, back pain and joint or muscle pain associated with the exercise. 3. Discussed age appropriate screening guidelines. Colonoscopy needs to start at age 50 with stool for occult blood as appropriate. There is a new test that can test for genetic abnormalities in the stool sample. This would not replace a colonoscopy but could be used as a screening tool for patients who do not want a colonoscopy. We discussed the importance of early detection of colon cancer. 4. Discussed current PSA screening. PSA screening can be done in most patients between age 50 and 65. However early detection of prostate cancer needs to carefully be balanced with complications with treatment. These include incontinence, impotence etc. Each patient should decide if they would like to have this test. 5. Discussed safe driving and no use of smart phone while driving 6. Age-appropriate immunizations were discussed. A tetanus booster is needed every 10 years. Flu vaccine is recommended every year just before the start of the flu season. Shingles vaccine is recommended after age 50 but not all insurances cover it. Pneumonia vaccine is given after age 65 unless there are certain comorbidities for which it is started earlier. 7. Diagnostic labs were discussed. These could include CBC CMP and lipids with fasting blood glucose and insulin levels. Vitamin D and hemoglobin A1c testing might be appropriate. 8. Patient will have a surveillance lung cancer CAT scan which is due patient is currently not drinking alcohol. He is not smoking.. He has no depression he has chronic pain which is being managed. He has follow-up with orthopedics for his hip fracture he might go to [place] and will need to fly there in the winter.. Advanced healthcare proxy [place] for order order for life-sustaining treatment discussed. Follow-up advised with multiple subspecialist Medicare paperwork reviewed and appropriate immunizations recommended including flu COVID and pneumonia and follow-up advised 05/01/2024 Essential (primary) hypertension (ICD-10 - I10) Sharlene is an 84-year-old male with past medical history of type 2 diabetes hypertension, atrial fibrillation presenting for hospital follow-up after being discharged from rehab S/P broken femur and surgical replacement. #Follow-up status post hip surgery: Patient is in moderate pain, requiring use of wheelchair, and ambulating with some difficulty. Patient was discharged from [facility] on 04/20/24 and discharged home, relying on the care from his . Plan to request replacement braces for patient and follow-up in office in 6 weeks. #Diabetes: Controlled on Trulicity, plan to continue current medication regimen. Patient is currently being followed by endocrinology with last visit on 04/04/2024. #hyperlipidemia: Well-controlled well, will continue current medication regimen. #Atrial fibrillation: Patient is followed by cardiology and last visit was on 04/15/2024. Plan to continue Eliquis and carvedilol and plan to follow-up with routine pacemaker interrogations evaluate for atrial fibrillation burden. #Heart failure with preserved ejection fraction: Patient is asymptomatic and will continue torsemide and Entresto. All questions answered to patients satisfaction. Patient verbalized understanding of diagnosis and treatments explained. To call sooner prior to next visit it any questions/concerns arise. Case discussed with collaborating physician Dr. Pettit who reviewed the assessment and plan. Chart, medications, labs, vital signs reviewed. Dictation was accomplished with the use of 7fgame voice recognition software, prone to medical misidentifications and grammatical errors. This is unintentional and the practitioner does try to identify and correct these, but some could still be present. Please do not hesitate to contact practitioner for clarification. 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 (ICD-10 - I83.009) Discussed wound care and compression No indications for antibiotics at this time See wound care next week as normally scheduled Of note, some information is being carried forward from prior records for informational purposes only and is being cited so that efficiency, safety and quality of the patient's care is not compromised This note was prepared using voice recognition software and direct typing Please excuse inadvertent leather cartridge belt maker or typing errors, or uncorrected word substitutions Although every attempt has been made by the provider to proofread this document, occasional misspellings and typographical errors may still be present Due to the previous pandemic, and the use of personal protective equipment (PPE) This may decrease voice recognition accuracy Inadvertent leather cartridge belt maker errors may occur 12/23/2023 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 (ICD-10 - L97.909) Discussed wound care and compression No indications for antibiotics at this time See wound care next week as normally scheduled Of note, some information is being carried forward from prior records for informational purposes only and is being cited so that efficiency, safety and quality of the patient's care is not compromised This note was prepared using voice recognition software and direct typing Please excuse inadvertent leather cartridge belt maker or typing errors, or uncorrected word substitutions Although every attempt has been made by the provider to proofread this document, occasional misspellings and typographical errors may still be present Due to the previous pandemic, and the use of personal protective equipment (PPE) This may decrease voice recognition accuracy Inadvertent leather cartridge belt maker errors may occur 05/01/2024 Atrial fibrillation, unspecified type (ICD-10 - I48.91) Sharlene is an 84-year-old male with past medical history of type 2 diabetes hypertension, atrial fibrillation presenting for hospital follow-up after being discharged from rehab S/P broken femur and surgical replacement. #Follow-up status post hip surgery: Patient is in moderate pain, requiring use of wheelchair, and ambulating with some difficulty. Patient was discharged from [facility] on 04/20/24 and discharged home, relying on the care from his . Plan to request replacement braces for patient and follow-up in office in 6 weeks. #Diabetes: Controlled on Trulicity, plan to continue current medication regimen. Patient is currently being followed by endocrinology with last visit on 04/04/2024. #hyperlipidemia: Well-controlled well, will continue current medication regimen. #Atrial fibrillation: Patient is followed by cardiology and last visit was on 04/15/2024. Plan to continue Eliquis and carvedilol and plan to follow-up with routine pacemaker interrogations evaluate for atrial fibrillation burden. #Heart failure with preserved ejection fraction: Patient is asymptomatic and will continue torsemide and Entresto. All questions answered to patients satisfaction. Patient verbalized understanding of diagnosis and treatments explained. To call sooner prior to next visit it any questions/concerns arise. Case discussed with collaborating physician Dr. Pettit who reviewed the assessment and plan. Chart, medications, labs, vital signs reviewed. Dictation was accomplished with the use of 7fgame voice recognition software, prone to medical misidentifications and grammatical errors. This is unintentional and the practitioner does try to identify and correct these, but some could still be present. Please do not hesitate to contact practitioner for clarification. discussed HCP/MOLST form 06/24/2024 Chronic obstructive pulmonary disease, unspecified (ICD-10 - J44.9) Patient seen and examined. Comprehensive discussion was done on the following. 1. Nutrition: It is important to follow a healthy diet based on lots of vegetables and legumes and good fat. Avoid processed food and processed carbohydrates. Learn to prepare your own meals. Learn to read labels and avoid high fructose corn syrup, processed chemicals added to increase shelf life and preprepared meals. Avoid fast foods. Learn to eat slowly and plan meals for a week. Try to count calories and be mindful off daily calorie intake. Get into the habit of keeping an eye on your weight by using an appropriate scale. Learn to log exercise and discussed fitness Apps like Medigus which can help keep log off calories taken versus calories burned. Local food should be preferred. Discussed Dirty Dozen Versus Clean Fifteen. Discussed healthy supplements like fish oil, Tumeric, Curcumin, Melatonin, Resveratrol, Probiotics, Vitamin-D, Alpha-Lipoic acid, Vitamin-D and coconut oil. 2. It is important to exercise regularly. Is a good habit to walk at least 30-45 minutes a day. Gentle weightlifting with standard precautions to protect the back. Finding activity like cycling or hiking and get into the habit of engaging in it. Stretching before and after the exercises important. It is also important to contact me if there are any problems like shortness of breath, chest pain, back pain and joint or muscle pain associated with the exercise. 3. Discussed age appropriate screening guidelines. Colonoscopy needs to start at age 50 with stool for occult blood as appropriate. There is a new test that can test for genetic abnormalities in the stool sample. This would not replace a colonoscopy but could be used as a screening tool for patients who do not want a colonoscopy. We discussed the importance of early detection of colon cancer. 4. Discussed current PSA screening. PSA screening can be done in most patients between age 50 and 65. However early detection of prostate cancer needs to carefully be balanced with complications with treatment. These include incontinence, impotence etc. Each patient should decide if they would like to have this test. 5. Discussed safe driving and no use of smart phone while driving 6. Age-appropriate immunizations were discussed. A tetanus booster is needed every 10 years. Flu vaccine is recommended every year just before the start of the flu season. Shingles vaccine is recommended after age 50 but not all insurances cover it. Pneumonia vaccine is given after age 65 unless there are certain comorbidities for which it is started earlier. 7. Diagnostic labs were discussed. These could include CBC CMP and lipids with fasting blood glucose and insulin levels. Vitamin D and hemoglobin A1c testing might be appropriate. 8. Patient will have a surveillance lung cancer CAT scan which is due patient is currently not drinking alcohol. He is not smoking.. He has no depression he has chronic pain which is being managed. He has follow-up with orthopedics for his hip fracture he might go to [place] and will need to fly there in the winter.. Advanced healthcare proxy [place] for order order for life-sustaining treatment discussed. Follow-up advised with multiple subspecialist Medicare paperwork reviewed and appropriate immunizations recommended including flu COVID and pneumonia and follow-up advised 05/01/2024 Mixed hyperlipidemia (ICD-10 - E78.2) Sharlene is an 84-year-old male with past medical history of type 2 diabetes hypertension, atrial fibrillation presenting for hospital follow-up after being discharged from rehab S/P broken femur and surgical replacement. #Follow-up status post hip surgery: Patient is in moderate pain, requiring use of wheelchair, and ambulating with some difficulty. Patient was discharged from [facility] on 04/20/24 and discharged home, relying on the care from his . Plan to request replacement braces for patient and follow-up in office in 6 weeks. #Diabetes: Controlled on Trulicity, plan to continue current medication regimen. Patient is currently being followed by endocrinology with last visit on 04/04/2024. #hyperlipidemia: Well-controlled well, will continue current medication regimen. #Atrial fibrillation: Patient is followed by cardiology and last visit was on 04/15/2024. Plan to continue Eliquis and carvedilol and plan to follow-up with routine pacemaker interrogations evaluate for atrial fibrillation burden. #Heart failure with preserved ejection fraction: Patient is asymptomatic and will continue torsemide and Entresto. All questions answered to patients satisfaction. Patient verbalized understanding of diagnosis and treatments explained. To call sooner prior to next visit it any questions/concerns arise. Case discussed with collaborating physician Dr. Pettit who reviewed the assessment and plan. Chart, medications, labs, vital signs reviewed. Dictation was accomplished with the use of 7fgame voice recognition software, prone to medical misidentifications and grammatical errors. This is unintentional and the practitioner does try to identify and correct these, but some could still be present. Please do not hesitate to contact practitioner for clarification. discussed HCP/MOLST form 06/24/2024 Sleep apnea, unspecified type (ICD-10 - G47.30) Patient seen and examined. Comprehensive discussion was done on the following. 1. Nutrition: It is important to follow a healthy diet based on lots of vegetables and legumes and good fat. Avoid processed food and processed carbohydrates. Learn to prepare your own meals. Learn to read labels and avoid high fructose corn syrup, processed chemicals added to increase shelf life and preprepared meals. Avoid fast foods. Learn to eat slowly and plan meals for a week. Try to count calories and be mindful off daily calorie intake. Get into the habit of keeping an eye on your weight by using an appropriate scale. Learn to log exercise and discussed fitness Apps like Medigus which can help keep log off calories taken versus calories burned. Local food should be preferred. Discussed Dirty Dozen Versus Clean Fifteen. Discussed healthy supplements like fish oil, Tumeric, Curcumin, Melatonin, Resveratrol, Probiotics, Vitamin-D, Alpha-Lipoic acid, Vitamin-D and coconut oil. 2. It is important to exercise regularly. Is a good habit to walk at least 30-45 minutes a day. Gentle weightlifting with standard precautions to protect the back. Finding activity like cycling or hiking and get into the habit of engaging in it. Stretching before and after the exercises important. It is also important to contact me if there are any problems like shortness of breath, chest pain, back pain and joint or muscle pain associated with the exercise. 3. Discussed age appropriate screening guidelines. Colonoscopy needs to start at age 50 with stool for occult blood as appropriate. There is a new test that can test for genetic abnormalities in the stool sample. This would not replace a colonoscopy but could be used as a screening tool for patients who do not want a colonoscopy. We discussed the importance of early detection of colon cancer. 4. Discussed current PSA screening. PSA screening can be done in most patients between age 50 and 65. However early detection of prostate cancer needs to carefully be balanced with complications with treatment. These include incontinence, impotence etc. Each patient should decide if they would like to have this test. 5. Discussed safe driving and no use of smart phone while driving 6. Age-appropriate immunizations were discussed. A tetanus booster is needed every 10 years. Flu vaccine is recommended every year just before the start of the flu season. Shingles vaccine is recommended after age 50 but not all insurances cover it. Pneumonia vaccine is given after age 65 unless there are certain comorbidities for which it is started earlier. 7. Diagnostic labs were discussed. These could include CBC CMP and lipids with fasting blood glucose and insulin levels. Vitamin D and hemoglobin A1c testing might be appropriate. 8. Patient will have a surveillance lung cancer CAT scan which is due patient is currently not drinking alcohol. He is not smoking.. He has no depression he has chronic pain which is being managed. He has follow-up with orthopedics for his hip fracture he might go to [place] and will need to fly there in the winter.. [facility] for order order for life-sustaining treatment discussed. Follow-up advised with multiple subspecialist Medicare paperwork reviewed and appropriate immunizations recommended including flu COVID and pneumonia and follow-up advised 05/01/2024 Chronic heart failure with preserved ejection fraction (ICD-10 - I50.32) Sharlene is an 84-year-old male with past medical history of type 2 diabetes hypertension, atrial fibrillation presenting for hospital follow-up after being discharged from rehab S/P broken femur and surgical replacement. #Follow-up status post hip surgery: Patient is in moderate pain, requiring use of wheelchair, and ambulating with some difficulty. Patient was discharged from [facility] on 04/20/24 and discharged home, relying on the care from his . Plan to request replacement braces for patient and follow-up in office in 6 weeks. #Diabetes: Controlled on Trulicity, plan to continue current medication regimen. Patient is currently being followed by endocrinology with last visit on 04/04/2024. #hyperlipidemia: Well-controlled well, will continue current medication regimen. #Atrial fibrillation: Patient is followed by cardiology and last visit was on 04/15/2024. Plan to continue Eliquis and carvedilol and plan to follow-up with routine pacemaker interrogations evaluate for atrial fibrillation burden. #Heart failure with preserved ejection fraction: Patient is asymptomatic and will continue torsemide and Entresto. All questions answered to patients satisfaction. Patient verbalized understanding of diagnosis and treatments explained. To call sooner prior to next visit it any questions/concerns arise. Case discussed with collaborating physician Dr. Pettit who reviewed the assessment and plan. Chart, medications, labs, vital signs reviewed. Dictation was accomplished with the use of 7fgame voice recognition software, prone to medical misidentifications and grammatical errors. This is unintentional and the practitioner does try to identify and correct these, but some could still be present. Please do not hesitate to contact practitioner for clarification. discussed HCP/MOLST form PLAN OF TREATMENT Pending Test Test Name Order Date Hemoglobin A1c 11/22/2018 Vitamin D, 25-Hydroxy 09/19/2018 CBC 11/22/2018 BASIC METABOLIC PANEL 09/18/2019 CBC (COMPLETE BLOOD COUNT) 09/19/2018 COMPREHENSIVE METABOLIC PANEL 11/22/2018 COMPREHENSIVE METABOLIC PANEL 09/19/2018 HEMOGLOBIN A1C 09/19/2018 LIPID PANEL 09/19/2018 MICROALBUMIN, URINE 09/19/2018 Chest 2 Views Frontal and Lat 12/31/2020 CT Chest w/o Contrast 06/26/2024 XR Chest 4+ Views Complete 12/31/2020 XR L-Spine 2-3 Views 12/31/2020 XR T-Spine 2 Views 12/31/2020 LIPID PANEL, STANDARD 06/15/2022 LIPID PANEL, STANDARD 06/22/2023 COMPREHENSIVE METABOLIC PANEL 06/22/2023 COMPREHENSIVE METABOLIC PANEL 06/15/2022 URIC ACID 06/22/2023 CBC (INCLUDES DIFF/PLT) 06/22/2023 CBC (INCLUDES DIFF/PLT) 06/15/2022 URINALYSIS, COMPLETE 06/15/2022 URINALYSIS, COMPLETE 06/22/2023 HEMOGLOBIN A1c 06/22/2023 HEMOGLOBIN A1c 06/15/2022 INSULIN 06/22/2023 T4, FREE 06/22/2023 TSH 06/22/2023 VITAMIN D,25-OH,TOTAL,IA 06/22/2023 CT Chest W/O Contrast 05/10/2023 Next Appt Details Provider Name:TRISTAN PETTIT, 01/13/2025 11:45:00 AM, [address], [place], [address], Insurance Providers Payer Name Payer Address Payer Phone Subscriber Number Group Number Insured Name Patient Relationship to Insured Coverage Start Date Coverage End Date Medicare Part B [id number] [address] [place] [id number] Sharlene Holguin Self - patient is the insured 7 [facility] [address] [place] [address] [id number] [place] Sharlene Self - patient is the insured MEDICAL (GENERAL) HISTORY Medical History History ICD Code hyperlipidemia hypertension diabetes mellitus asthma sleep apnea copd Surgical History Surgery Date(Month/Year) colonoscopy 1 years right knee replacement eye surgery 2021 Pacemaker in [facility] Aug 2022 Right Hip surgery after a fracture 2023 Hospitalization History Reason Date(Month/Year) [facility] broken R femur December 2023
--- OUTSIDE RECORDS SUMMARY | 2024-08-07 07:44 | XMS_ITS | Continuity of Care Document ---
Author Organization [facility] Address [address] [place] [id number]- Care Team Providers Care Barn Hand Name Role Phone Wilver CUENCA, Rimma Rincon Primary Care Physician Encounter [facility] [place] Date(s): 07/23/24 - 07/30/24 [facility] [address] [place] [id number]- Encounter Diagnosis Type 2 diabetes mellitus(Discharge Diagnosis) - 07/23/24 Attending Physician: Enrique Dover MD Encounter Type: Office Visit Allergies, Adverse Reactions, Alerts Substance Criticality Severity Reaction Reaction Severity Status doxycycline Active amoxicillin Active Immunizations Given and Recorded Vaccine Date Status Refusal Reason SARS-CoV-2 (COVID-19) mRNA BNT-162b2 vac 11/01/20 Given SARS-CoV-2 (COVID-19) mRNA BNT-162b2 vac 10/11/20 Given pneumococcal 13-valent vaccine 1 09/21/19 Given 1Early/Late Reason: Med Not Available Medications allopurinol 300 mg oral tablet 90 each, 0 Refill(s), TAKE 1 TABLET BY MOUTH EVERY DAY, Refills 0, 02/10/23 8:58:00 AM EDT, Partial fill upon patient request if the prescription is for a schedule II opioid drug. Start Date: 02/10/23 Status: Ordered Repeat number: 1 [place] 100 units/mL subcutaneous solution See Instructions, INJECT 24 UNITS SUBCUTANEOUSLY ONCE DAILY IN THE EVENING, # 30 mL, 3 Refills, Maintenance, 07/23/24 11:53:00 AM EST, [id number], 178, cm, 07/23/24 11:14:00 EST, Height, 114.1, kg, 01/14/24 10:21:00 EDT, Dry Weight Start Date: 07/23/24 Status: Ordered Quantity: 30.0 Unit: mL Repeat number: 4 carvedilol 3.125 mg oral tablet 180 each, 0 Refill(s), TAKE 1 TABLET BY MOUTH TWICE A DAY WITH FOOD FOR 90 DAYS, Refills 0, :59:00 AM EDT, Partial fill upon patient request if the prescription is for a schedule II opioid drug. Start Date: 02/10/23 Status: Ordered Repeat number: 1 colchicine 0.6 mg oral tablet 0.6 mg, 1, tablet, By Mouth, Daily, # 30 tablet, Refills 0, Tot. Refills 0, Maintenance, 10/10/21 10:35:00 AM EST, Route to Pharmacy Electronically, [facility], Partial fill upon patientrequest if the prescription is for a schedule II opioid drug., 179, cm, 10/10/21 8:41:00 EST, Height, 128.5, kg, 10/02/21 18:32:00 EST, Dry Weight Start Date: 10/10/21 Status: Ordered Quantity: 30.0 Unit: tablet Repeat number: 1 docusate-senna 50 mg-187 mg oral tablet 1 Unknown, Oral, 0 Refill(s), Take 1 tablet by mouth 1 (one) time each day, 0 Refills, 02/10/23 8:59:00 AM EDT, Partial fill upon patient request if the prescription is for a schedule II opioid drug. Start Date: 02/10/23 Status: Ordered Repeat number: 1 Eliquis 2.5 mg oral tablet 60 each, 0 Refill(s), TAKE 1 TABLET BY MOUTH TWICE A DAY, 0 Refills, 02/10/23 8:59:00 AM EDT, Partial fill upon patient request if the prescription is for a schedule II opioid drug. Start Date: 02/10/23 Status: Ordered Repeat number: 1 ferrous sulfate 325 mg oral enteric coated tablet 325 mg, 1, tablet, By Mouth, Daily, # 30 tablet, Refills 0, Maintenance, 06/07/21 6:21:00 PM EDT, Partial fill upon patient request if the prescription is for a schedule II opioid drug. Start Date: 06/07/21 Status: Ordered Quantity: 30.0 Unit: tablet Repeat number: 1 fluticasone 50 mcg/inh nasal spray 16 Gm, 0 Refill(s), SPRAY 1 SPRAY BY INTRANASAL ROUTE EVERY DAY, 0 Refills, 02/10/23 8:59:00 AM EDT,Partial fill upon patient request if the prescription is for a schedule II opioid drug. Start Date: 02/10/23 Status: Ordered Repeat number: 1 Freestyle Teresa 2 monitor Freestyle Teresa 2 monitor, See Instructions, # 1 each, Refills 0, Tot. Refills 0, Maintenance, Use to scan Freestyle Teresa 2 sensors to monitor blood glucose; E11.9. Patient will pay OOP due to lost reader., 04/24/24 10:11:00 AM EDT, Supply, 178, cm, 04/15/24 11:28:00 EDT, Height, 114.1, kg, 01/14/24 10:21:00 EDT, Dry Weight Start Date: 04/24/24 Status: Ordered Quantity: 1.0 Unit: each Repeat number: 1 FREESTYLE LITE TEST STRIP FREESTYLE LITE TEST STRIP, See Instructions, # 100 each, 10 Refills, Maintenance, use to test 3 times daily E11.65, 04/23/24 4:04:00 PM EDT, 178, cm, 04/15/24 11:28:00 EDT, Height, 114.1, kg, 01/13/2410:21:00 EDT, Dry Weight Start Date: 04/23/24 Status: Ordered Quantity: 100.0 Unit: each Repeat number: 11 Gvoke HypoPen 1 mg/0.2 mL subcutaneous solution = 1 mg, Subcutaneous Infusion, Once, To be use for hypoglycemic emergency by family member or accompanying person, if blood glucoses less than 60 and unconscious. Please call 911 after use glucagon pen., # 1 each, 0 Refills, Soft Stop, 07/23/24 11:57:00 AM EST, [facility]/pharmacy #[id number], Partial fill uponpatient request if the prescription is for a schedule II opioid drug., 178, cm, 07/23/24 11:14:00 EST, Height, 114.1, kg, 01/14/24 10:21:00 EDT, Dry Weight Start Date: 07/23/24 Status: Ordered Quantity: 1.0 Unit: each Repeat number: 1 ketorolac 0.5% ophthalmic solution 1 drops, Eye, Right, 4 times a day, PRN for itching, # 5 mL, 0 Refills, Maintenance, 01/14/24 3:51:00 PM EDT, Ophth Solution, Partial fill upon patient request if the prescription is for a schedule IIopioid drug. Start Date: 01/14/24 Status: Ordered Quantity: 5.0 Unit: mL Repeat number: 1 lidocaine 5% topical film 1 patch, Topically, Daily, remove patches after 12 hours, # 30 patch, 0 Refills, Maintenance, 04/15/24 11:21:00 AM EDT, Film, Partial fill upon patient request if the prescription is for a schedule IIopioid drug. Start Date: 04/15/24 Status: Ordered Quantity: 30.0 Unit: patch Repeat number: 1 Melatonin 0 Refills, Maintenance, 04/15/24 11:22:00 AM EDT, Partial fill upon patient request if the prescription is for a schedule II opioid drug. Start Date: 04/15/24 Status: Ordered Repeat number: 1 miconazole = 50 mg, Daily, 0 Refills, Maintenance, 04/15/24 11:22:00 AM EDT, Partial fill upon patient request if the prescription is for a schedule II opioid drug. Start Date: 04/15/24 Status: Ordered Repeat number: 1 montelukast 10 mg oral tablet 10 mg, 1, tablet, By Mouth, Daily, Refills 0, Maintenance, 07/23/17 7:56:16 PM EST Start Date: 07/23/17 Status: Ordered Repeat number: 1 Nitrostat 0.4 mg sublingual tablet 1 tablet = 0.4 mg, Sublingual, Every 5 minutes, PRN for chest pain, 0 Refills, Maintenance, 07/23/17 7:58:38 PM EST, Tablet Start Date: 07/23/17 Status: Ordered Repeat number: 1 NovoLOG FlexPen 100 units/mL subcutaneous solution = 10 units, Subcutaneous Injection, 2 times a day, << Sliding Scale Comments >> Less than 150 nothing 150 - 199 1units 200-249 2 units 250-299 3 units 300-349 4 units 350 - 399 5 units Call if greater than 400 max daily dos 30, # 30 mL, 3 Refills, Maintenance, 07/23/24 11:54:00 AM EST, Solution, [facility]/pharmacy #[id number], Partial fill upon patient request if the prescription is for a schedule II opioid drug., 178, cm, 07/23/24 11:14:00 EST, Height, 114.1, kg, 01/14/24 10:21:00 EDT, Dry Weight Start Date: 07/23/24 Stop Date: 07/18/25 Status: Ordered Quantity: 30.0 Unit: mL Repeat number: 4 ProAir HFA 90 mcg/inh inhalation aerosol with adapter 2, puffs, Inhalation, Every 4 hours, PRN, Refills 0, Maintenance, 07/23/17 7:59:18 PM EST, Aerosol Start Date: 07/23/17 Status: Ordered Repeat number: 1 simvastatin 40 mg oral tablet 40 mg, 1, tablet, By Mouth, Daily at bedtime, Refills 0, Maintenance, 07/23/17 7:57:36 PM EST Start Date: 07/23/17 Status: Ordered Repeat number: 1 tamsulosin 0.4 mg oral capsule TAKE 1 CAPSULE BY MOUTH EVERY DAY AT BEDTIME Start Date: 01/14/24 Status: Ordered Repeat number: 1 torsemide 20 mg oral tablet 1 tablet = 20 mg, By Mouth, Daily, patient takes 2 tablets am amd two tablets pm, 0 Refills, Maintenance, 04/15/24 11:27:00 AM EDT, Partial fill upon patient request if the prescription is for a schedule II opioid drug. Start Date: 04/15/24 Status: Ordered Repeat number: 1 Trelegy Ellipta inhalation powder 2 puffs, 2 times a day, Maintenance, 06/07/21 8:02:00 PM EDT, Powder, Partial fill upon patient request if the prescription is for a schedule II opioid drug. Start Date: 06/07/21 Status: Ordered Repeat number: 1 triamcinolone 0.5% topical cream 45 Gm, 0 Refill(s), APPLY TOPICALLY OVER AFFECTED AREA ONLY 2 TIME A DAY FOR 7- 14 DAY OR EALIERST RESOLUTION OF SYMPTOM, 0 Refills, 02/10/23 9:00:00 AM EDT, Partial fill upon patient request if the prescription is for a schedule II opioid drug. Start Date: 02/10/23 Status: Ordered Repeat number: 1 Trulicity Pen 1.5 mg/0.5 mL subcutaneous solution 0.5 mL = 1.5 mg, Subcutaneous Injection, Every week, # 6.5 mL, 3 Refills, Maintenance, 07/23/24 11:53:00 AM EST, Solution, [id number], Partial fill upon patient request if the prescription isfor a schedule II opioid drug., 178, cm, 07/23/24 11:14:00 EST, Height, 114.1, kg, 01/14/24 10:21:00 EDT, Dry Weight Start Date: 07/23/24 Stop Date: 07/18/25 Status: Ordered Quantity: 6.5 Unit: mL Repeat number: 4 Vitamin D3 1000 intl units oral capsule 1 capsule = 25 mcg, By Mouth, Daily, 0 Refills, Maintenance, 06/07/21 6:20:00 PM EDT, Capsule, Partial fill upon patient request if the prescription is for a schedule II opioid drug. Start Date: 06/07/21 Status: Ordered Repeat number: 1 vitamin E 400 iu oral capsule 1 capsule = 400 International_Units, By Mouth, Daily, 0 Refills, Maintenance, 06/07/21 6:20:00 PM EDT, Capsule, Partial fill upon patient request if the prescription is for a schedule II opioid drug. 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 Confirmed Active Diverticulosis Confirmed Active Chronic heart failure with preserved ejection fraction Confirmed Active Hypercoagulable state, secondary Confirmed Active Hypertension Confirmed Active Insulin dependent type 2 diabetes mellitus Confirmed Active Iron deficiency anemia secondary to inadequate dietary iron intake Confirmed Active Seasonal allergic rhinitis Confirmed Active Secondary hyperparathyroidism Confirmed Active Severe obesity (BMI 35.0-39.9) with comorbidity Confirmed Active Hepatic steatosis Confirmed Active Type 2 diabetes mellitus Confirmed Active Vitamin D deficiency Confirmed Active Diagnosis Diagnosis Type Effective Dates Health Status Cl inical Service Informant Type 2 diabetes mellitus Discharge Diagnosis 07/23/24 Vital Signs Most recent to oldest [Reference Range]: 1 Height 178 cm (07/23/24 11:14 AM) Weight 117.3 kg (07/23/24 11:14 AM) Pulse Rate [55-90 bpm] 66 bpm (07/23/24 11:14 AM) Body Mass Index [18.5-24.99 kg/m2] 37.02 kg/m2 *>HHI* (07/23/24 11:14 AM) Blood Pressure [90-138/55-84 mm Hg] 133/ 48mm Hg (07/23/24 11:14 AM) Blood pressure sites Arm, left (07/23/24 11:14 AM) Weight Obtained Via Bed scale (07/23/24 11:14 AM) Social History Social History Type Response Smoking Status Former smoker entered on: 07/23/17 Sex Sex Representation Male (finding) Note * January Fry: PERFORM Event Display: Patient Education/Instruction Authored Date: Ambulatory Adult Visit Summary [facility] [address] [place] [address] Name: SHARLENE HOLGUIN : 1940?? Visit: 07/23/2024 11:00?? Ambulatory Visit Instructions ?? Your Care Team Primary Care Provider Wilver CUENCA, Rimma Rincon? This Visit Provider Enrique Dover MD Your Diagnosis Type 2 diabetes mellitus Vitals Signs Pulse Rate: 66 bpm Height: 178 cm Systolic Blood Pressure: 133 mm Hg Weight: 117.3 kg Diastolic Blood Pressure:??48 mm Hg??Low Body Mass Index:??37.02 kg/m2??Critical ?? Body surface area: 2.41 What to do next Instructions From Your Provider Your ??Goal A1c less than 8% ?? fasting blood glucose goal 90-130 ?? 2-hour after meals blood glucose goal less than 180 ?? Please call if Your Blood sugar is <80 or >400 ?? Trulicity 1.5 mg weekly basaglar 24units Novolog sliding scale before meals( dont take if not eating)?? 150 - 199?1units 200-249 2 units 250-299 3 units 300-349 4 units 350 - 399 5 units Call?? if greater than 400 ?? discontinue jardiance ?? Hypoglycemia Patient Instructions Hypoglycemia or low blood glucose is when your glucose levels fallen low enough to cause symptoms. This is usually <70 mg/dl, but this may vary from person to person. Symptoms of hypoglycemia include:?- feeling shaky ?- feeling sleepy/lethargic ??- being nervous or anxious ?- feeling weak, having no energy ??- sweating, chills, clamminess ?- blurred/impaired vision ??- mood swings, irritability, impatience ?-tingling/numbness in lips, tongue, cheeks ??- confusion ?- headaches ??- palpitations/fast heartbeat ?- coordination problems, clumsiness ??- feeling light-headed or dizzy ?- nightmares or crying out in sleep ??- hunger, nausea ?- seizures ? How to manage hypoglycemia/low blood sugar:?Follow the 15-15 rule: have 15 grams of carbohydrate (options listed below) to raise your blood glucose and check it after 15 minutes. If it is still <70 mg/dl or below your low target, have another serving.?Repeat these steps until your blood glucose is back to normal, eat a meal or snack to ensure it does not go low again.? 15 grams of carbohydrates: ??- 4 ounces (1/2 cup) of juice or regular soda ??- 1 tablespoon of sugar, honey or corn syrup ??- 8 ounces of nonfat or 1% milk ??- 15 pieces of Skittles?- 4-7 pieces of hard candy (lifesavers, peppermints or jellybeans) ??- 3-4 glucose tablets ? Please call your primary care provider or us if you need assistance managing your hypoglycemia ([phone]).? Severe hypoglycemia: When hypoglycemia or low blood sugar is not treated and you need someone to help you recover.?Glucagon can be injected following the instructions in the Glucagon kit.? Please call 911 if the person is unconscious or glucagon is not sufficient or available! Follow-Up Appointments Follow up Appointment - Ordered?-- december/2024, 07/23/24 11:59:00 EST Medications The list below reflects the information in our records and provided by you today along with any changes made during this visit. Please continue your medications until treatment is completed or stopped by your provider. If this is different from the information you have or there are other questions,please contact the prescribing provider. What How Much When Instructions New Glucagon (Gvoke HypoPen 1 mg/ 0.2 mL subcutaneous solution) 1 Milligram Subcutaneous Infusion Once To be use for hypoglycemic emergency by family member or accompanying person, if blood glucoses less than 60 and unconscious. ??Please call 911 after use glucagon pen. ?? Pickup at [facility]/pharmacy #[id number] New Insulin Aspart (NovoLOG FlexPen 100 units/ mL subcutaneous solution) 10 unit(s) Subcutaneous Injection Twice a day Duration: 90 Days Refills: 3 << Sliding Scale Comments >> Less than 150 nothing 150 - 199 ?? 1units 200-249 2 units 250-299 3 units 300-349 4 units 350 - 399 5 units Call ??if greater than 400 ?? max daily dos 30 ?? Pickup at [facility]/pharmacy #[id number] Changed Insulin Glargine (Basaglar KwikPen 100 units/ mL subcutaneous solution) See instructions INJECT 24 UNITS SUBCUTANEOUSLY ONCE DAILY IN THE EVENING ?? Pickup at [facility]/pharmacy #[id number] Changed dulaglutide (Trulicity Pen 1.5 mg/ 0.5 mL subcutaneous solution) 0.5 Milliliter Subcutaneous Injection Every week Duration: 90 Days Pickup at [facility]/pharmacy #[id number] Unchanged Albuterol (ProAir HFA 90 mcg/ inh inhalation aerosol with adapter) 2 puff(s) Inhalation Every 4 hours as needed for Wheezing/Shortness of Breath Unchanged Allopurinol (allopurinol 300 mg oral tablet) 90 each, 0 Refill(s), TAKE 1 TABLET BY MOUTH EVERY DAY ?? Unchanged apixaban (Eliquis 2.5 mg oral tablet) 60 each, 0 Refill(s), TAKE 1 TABLET BY MOUTH TWICE A DAY ?? Unchanged Carvedilol (carvedilol 3.125 mg oral tablet) 180 each, 0 Refill(s), TAKE 1 TABLET BY MOUTH TWICE A DAY WITH FOOD FOR 90 DAYS ?? Unchanged Cholecalciferol (Vitamin D3 1000 intl units oral capsule) 1 capsule Oral Daily Unchanged Colchicine (colchicine 0.6 mg oral tablet) 1 tab(s) Oral Daily Unchanged Docusate-Senna (docusate-senna 50 mg-187 mg oral tablet) 1 Unknown, Oral, 0 Refill(s), Take 1 tablet by mouth 1 (one) time each day ?? Unchanged Durable Medical Equipment (Freestyle Teresa 2 monitor) See instructions Use to scan Freestyle Teresa 2 sensors to monitor blood glucose; E11.9. Patient will pay OOP due to lost reader. ?? Unchanged Ferrous Sulfate (ferrous sulfate 325 mg oral enteric coated tablet) 1 tab(s) Oral Daily Unchanged Fluticasone Nasal (fluticasone 50 mcg/ inh nasal spray) 16 Gm, 0 Refill(s), SPRAY 1 SPRAY BY INTRANASAL ROUTE EVERY DAY ?? Unchanged fluticasone/ umeclidinium/ vilanterol (Trelegy Ellipta inhalation powder) 2 puff(s) Twice a day Unchanged Ketorolac Ophthalmic (ketorolac 0.5% ophthalmic solution) 1 Drops Right eye 4 times a day as needed for for itching Unchanged Lidocaine Topical (lidocaine 5% topical film) 1 patch(es) Topically Daily remove patches after 12 hours ?? Unchanged Melatonin Unchanged miconazole 50 Milligram Daily Unchanged Miscellaneous Rx (FREESTYLE LITE TEST STRIP) See instructions use to test 3 times daily E11.65 ?? Unchanged Montelukast (montelukast 10 mg oral tablet) 1 tab(s) Oral Daily Unchanged Nitroglycerin (Nitrostat 0.4 mg sublingual tablet) 1 tab(s) Sublingual Every 5 minutes as needed for for chest pain Unchanged Simvastatin (simvastatin 40 mg oral tablet) 1 tab(s) Oral Daily at Bedtime Unchanged Tamsulosin (tamsulosin 0.4 mg oral capsule) TAKE 1 CAPSULE BY MOUTH EVERY DAY AT BEDTIME ?? Unchanged torsemide (torsemide 20 mg oral tablet) 1 tab(s) Oral Daily patient takes 2 tablets am amd two tablets pm ?? Unchanged Triamcinolone Topical (triamcinolone 0.5% topical cream) 45 Gm, 0 Refill(s), APPLY TOPICALLY OVER AFFECTED AREA ONLY 2 TIME A DAY FOR 7- 14 DAY OR EALIERST RESOLUTION OF SYMPTOM ?? Unchanged Vitamin E (vitamin E 400 iu oral capsule) 1 capsule Oral Daily Pharmacy Information [facility]/pharmacy #[id number]: [address] [place], [place] [id number] [phone] ?? What How Much When Comments Stop Taking empagliflozin (Jardiance 10 mg oral tablet) 1 tab(s) Oral Daily in the morning 90 each, 0 Refill(s), TAKE 1 TABLET BY MOUTH EVERY DAY FOR 90 DAYS ?? Stop Taking Insulin Lispro (insulin lispro 100 u/ ml subcutaneous injection) 7-32 units Subcutaneous Injection 5 times a day << Sliding Scale Comments >> Less than 150 nothing 150 - 199 ?? 2 units 200-249 4 units 250-299 7 units 300-349 10 units 350 - 399 12 units Call PCP if greater than 400 ?? Test Performed Below is a partial list of the tests performed during your Visit. You may have had other tests and procedures not included in this list. Please discuss all test results with your provider. POC GLUCOSE ([facility]) POC HBA1C ([facility]) Lab Test Results Below is a partial list of the most recent Laboratory test results done during your Visit. You may have had other tests and procedures not included in this list. Please discuss all test results with your provider. Test Name Test Result Date/Time POC Glucose ([facility]) 196 mg/dL 07/23/2024 11:23 EST POC HBA1C ([facility]) 6.9 % 07/23/2024 11:24 EST Medications and Immunizations Administered Medications Given During Visit No medications given during this visit.?? Allergies (NKA means No Known Allergies) amoxicillin doxycycline Common Emergency Awareness Tips IS IT A STROKE? Act FAST and Check for these signs: FACE Does the face look uneven? ARM Does one arm drift down? SPEECH Does their speech sound strange? TIME Call at any sign of stroke ?? Heart Attack Signs Chest discomfort: Most heart attacks involve discomfort in the center of the chest and lasts more than a few minutes, or goes away and comes back. It can feel like uncomfortable pressure, squeezing, fullness or pain. Discomfort in upper body: Symptoms can include pain or discomfort in one or both arms, back, neck, jaw or stomach. Shortness of breath: With or without discomfort. Other signs: Breaking out in a cold sweat, nausea, or lightheaded. Remember, MINUTES DO MATTER. If you experience any of these heart attack warning signs, call to get immediate medical attention! ?? Smoking can increase your chances of developing chronic health problems and can cause harmful effects to other family members in your house. If you smoke, you are strongly encouraged to quit. Please call [employer] at [phone] or [phone] ([phone]) or log in to [email or web address] for referrals to smoking cessation programs. ?? The National Suicide Prevention Hotline is available 20/03 if you or someone you know needs to find a reason to keep living. By calling 8-367-758-One Touch EMR (6876) you'll be connected to a skilled, trained counselor at a crisis center in your area. [facility] You can view and manage your care through the patient portal or by using a health care selina of your choosing. [employer] is a website that allows you to securely view your medical information including your hospital discharge summary, office visit summaries, medications and follow-up visits. You can also request appointments, renew medications, and request access to your medical information using a health care selina of your choosing, or just ask a question. You can enroll at [email or web address] or register during your next office visit. [facility], in keeping with [facility] guidance, no longer requires face masks for staff, patientsor visitors in most situations. Similiar to time spent indoors at other locations, there is the chance that you were exposed to repiratory viruses during your time with us (such as flu or COVID-19). If you develop symptoms concerning for a viral respiratory infection, please seek testing (and treatment if indicated) from your medical provider or home test kit. ?? Disclaimer: The information provided is of a general nature and is intended to be used in conjunction with the recommendations and advice of your health care practitioner. Every effort has been made to ensure that the information provided is accurate and complete at the time it is provided to you however, as your needs change, or, as new information becomes available, different or additional instructions may be required. ?? If you have questions, please consult with your primary care provider or pharmacist, as appropriate. This information is not intended to serve as substitution for assessment and evaluation by a qualified health care provider. If you do not have a primary care provider, you may find a [facility] provider by calling [facility] at [phone]. Patient Care team information Care Team Personnel Name: Anastacio Garcia Position: [facility] Associate Professional Member Role: [employer] Provider Address: [address] [place] [address] [address] [facility] [place] [address]- Telecom: Name: Dusty Montanez MD Position: [facility] Renal MD Member Role: [employer] Physician Address: [address] [place] [address] [id number] [facility] [place], [place] [address] Telecom: Name: Karlee Zarate Position: [facility] RN Supv Member Role: Primary Care Nurse Name: Priya Laurent RN Position: [facility] AMB Nurse Member Role: Primary Care Nurse Name: Epi Senior MD Position: [facility] Renal MD Member Role: [employer] Consulting Physician Address: [address] [facility] [address] [facility] [address] Telecom: Name: Jossy Rodriges RN Position: [facility] RN Member Role: Primary Care Nurse Name: Karlee Mueller Position: [facility] Gaming Cashier Member Role: Lifetime Consulting Physician Name: Rimma Pettit MD Position: [facility] Physician - Primary Care Member Role: PCP Address: [address] [place] [address], [address] [facility] [place], [place] [address] Telecom: Name: Subha Vega RN Position: [facility] RN Member Role: Primary Care Nurse Name: Siobhan Lambert RN Position: [facility] RN Member Role: Primary Care Nurse Name: Melissa Rivas Position: [facility] Outreach Member Role: Lifetime Consulting Physician Name: Song Nieto MD Position: [facility] Renal MD Member Role: Lifetime Consulting Physician Address: [address] [facility] [address] [facility] [place] [address]- Telecom: Name: Mu Sams RN Position: [facility] RN Member Role: Primary Care Nurse Name: Yaa Rahman RN Position: [facility] RN Member Role: Primary Care Nurse Name: Olivia Klein RN Position: [facility] SN RN Member Role: Primary Care Nurse Name: Yelena Dos Santos RN Position: S RN Member Role: Primary Care Nurse Name: Regine Thao RN Position: S RN Member Role: Primary Care Nurse Care Team Related Persons Name: IVAN HOLGUIN Name: ART HOLGUIN Insurance Providers Guarantor name: SHARLENE CHELSIE Health Plan Information #: 2 Payer: [facility] Member Number: [id number] Policy Number: NA Group Number: [id number] Health Plan Information #: 1 Payer: MEDICARE PART B OUTPT Member Number: [id number] Policy Number: NA Group Number: NA
--- OUTSIDE RECORDS SUMMARY | 2024-08-07 07:44 | XMS_ITS | Patient Health Record ---
Author Organization [facility] [address] [place] Address [address] [facility] [place] [address] Care Team Providers Care Field Trainer Name Role Phone Rimma Pettit Primary Care Provider UnavailFernando Rocha Unavailable [phone] Black, Kassidy Unavailable [phone] Perica Dana Unavailable [phone] Allergies Allergen (clinical drug ingredient) Drug/Non Drug Allergy documented on EMR Reaction Allergy Type Onset Date Status amoxicillin Amoxicillin rash, skin peeling Drug Allergy Active Doxycycline Calcium Reaction Drug Allergy Active Reason For Referral No Information Medications Medication SIG (Take, Route, Frequency, Duration) Notes Start Date End Date Status Eliquis 2.5 MG 1 tablet Orally Twice a day Active Xarelto 20 MG 1 tablet Orally Once a day Not-Taking Empagliflozin 10 MG 1 tablet Orally Once a day Active Advair Diskus 500-50 MCG/DOSE 1 puff Inhalation Twice a day Not-Taking Metoprolol Succinate ER 25 MG 1 tablet Orally Once a day Active Spiriva HandiHaler 18 MCG 1 capsule Inhalation Once a day Not-Taking Montelukast Sodium 10 MG 1 tablet Orally Once a day Active Singulair 10 MG 1 tablet in the evening Orally Once a day for 30 day(s) Not-Taking Nitrostat 0.4 MG 1 tablet under the tongue and allow to dissolve as needed Sublingual every 0 hrs Active Klor-Con M10 Not-Doug ing NovoLOG 100 UNIT/ML Subcutaneous Active Fluticasone Propionate Not-Taking NovoLOG FlexPen Acti ve AndroGel 2 pumps per arm each day Not-Taking Simvastatin 40 MG 1 tablet in the evening Orally Once a day for 30 day(s) Active Lisinopril 20 MG 1 tablet Orally Once a day Not-Taking Torsemide 40 MG 1 tablet Orally Once a day Active Trulicity Active Glimepiride 4 MG 1 tablet with breakfast or the first main meal of the day Orally Once a day for 30 day(s) Not-Taking Aspirin 81 MG 1 tablet Orally Once a day for 30 day(s) Not-Taking BD Pen Needle Short U/F 31G X 8 MM as directed Not-Taking Tamsulosin HCl 0.4 MG 1 capsule 30 minut es after the same meal each day Orally Once a day for 30 day(s) Not-Taking One Touch/One Touch II Starter Not-Taking Finasteride 1 MG 1 tablet Orally Once a day for 30 day(s) Not-Taking Nebulizer Not-Taking ProAir HFA 108 (90 Base) MCG/ACT 2 puffs as needed Inhalation every 4 hrs Not-Taking Qnasl 80 MCG/ACT 2 puffs in each nostril Nasally Once a day for 30 day(s) Not-Taking Allopurinol 300 MG 1 tablet Orally Once a day Active Magnesium Not-Taking Apixaban 2.5 MG 1 tablet Orally Twice a day Active Vitamin D Not-Taking Albuterol Sulfate HFA Active Furosemide 40 MG 1 tablet Orally Once a day twice a day Not-Taking Basaglar KwikPen Act marlon Metoprolol Succinate ER 50 MG 1 tablet Orally Once a day for 30 day(s) Not-Taking Carvedilol 3.125 MG 1 tablet with food Orally Twice a day Active Clindamycin HCl 300 MG 2 capsules Orally every 8 hrs Active Calcium Not-Taking Lantus SoloStar 74units 0.02 ml Subcutaneous Once a day for 30 day(s) Not-Taking Trelegy Ellipta 100-62.5-25 MCG/ACT 1 puff Inhalation Once a day Active HumaLOG KwikPen 32 units as directed Subcutaneous Not-Taking Immunizations Vaccine Route Administration Date Status Comme nts COVID-19 Pfizer BioNTPhysiq Vaccine Unknown 11/01/2020 Administered 1st vaccine Influenza Unknown 06/09/2015 Administered Influenza Unknown 06/07/2016 Administered Influenza Unknown 09/01/2017 Administered Influenza Unknown 06/26/2018 Administered Influenza Unknown 05/17/2019 Administered Influenza Unknown 06/19/2020 Administered Influenza Unknown 06/10/2022 Administered Social History Alcohol Screen Question Answer Notes Did you have a drink containing alcohol in the p ast year? No Points 0 Interpretation Negative Problems Problem Type SNOMED Code ICD Code Onset Dates Problem Status W/U Status Risk Notes Problem Acquired hammer toe of right foot (5160559052156589 ) Other hammer toe(s) (acquired), right foot (M20.41) Active confirmed Problem Acquired hammer toe of left foot (1793450930212318 ) Other hammer toe(s) (acquired), left foot (M20.42) Active confirmed Problem Polyneuropathy due to diabetes mellitus type I (688440726) Type 1 diabetes mellitus with diabetic polyneuropathy (E10.42) Active confirmed Vital Signs Height 5 ft 10 in in 07/01/2024 Weight 253 lbs 07/01/2024 BMI 36.3 kg/m2 07/01/2024 Procedures Procedure Date Ordered Date Performed Result Body Sit e 59911-XLDVBZW NAIL, 6 OR MORE 04/03/2024 N/A 67655-PJVL SKIN LESIONS, 2 TO 4 04/03/2024 N/A 92087-BICTOHU NAIL, 6 OR MORE 07/01/2024 N/A 88571-KUDO SKIN LESIONS, 2 TO 4 07/01/2024 N/A Encounters Encounter Location Date Provider Diagnosis [address] [address] 12/21/2023 Dana Barker Type 1 diabetes mellitus with diabetic polyneuropathy E10.42 ; Other hammer toe(s) (acquired), right foot M20.41 ; Tinea unguium B35.1 and Other hammer toe(s) (acquired), [facility] [address] 04/03/2024 Fernando Gerardo Type 1 diabetes mellitus with diabetic polyneuropathy E10.42 and Tinea unguium B35.[address] [address] 07/01/2024 Fernando Gerardo Type 1 diabetes mellitus with diabetic polyneuropathy E10.42 and Tinea unguium B35.[address] [address] 12/21/2023 Kassidy Black Assessments Encounter Date Diagnosis (ICD Code) Assessment Notes Treatment Notes Treatment Clinical Notes Section Notes 12/21/2023 Other hammer toe(s) (acquired), right foot (ICD-10 - M20.41) Patient Educated with: DIABETIC FOOT CARE INSTRUCTIONS. pdf (DIABETIC FOOT CARE INSTRUCTIONS. pdf) 12/21/2023 Type 1 diabetes mellitus with diabetic polyneuropathy (ICD-10 - E10.42) 04/03/2024 Type 1 diabetes mellitus with diabetic polyneuropathy (ICD-10 - E10.42) 04/03/2024 Tinea unguium (ICD-10 - B35.1) 07/01/2024 Type 1 diabetes mellitus with diabetic polyneuropathy (ICD-10 - E10.42) 07/01/2024 Tinea unguium (ICD-10 - B35.1) 12/21/2023 Tinea unguium (ICD-10 - B35.1) 12/21/2023 Other hammer toe(s) (acquired), left foot (ICD-10 - M20.42) Plan Of Treatment Pending Test Test Name Order Date 74318-UTNPXSN NAIL, 6 OR MORE 02/07/2013 26853-DSLAGAU NAIL, 6 OR MORE 05/09/2013 58830-EXZAQXV NAIL, 6 OR MORE 08/08/2013 19623-XEJJKNH NAIL, 6 OR MORE 01/23/2014 61541-EELBZGR NAIL, 6 OR MORE 04/25/2014 18551-HELGIXE NAIL, 6 OR MORE 07/22/2014 72153-ZCMTFZX NAIL, 6 OR MORE 01/13/2015 73509-QNDUJKZ NAIL, 6 OR MORE 04/17/2015 46805-DKYGEEM NAIL, 6 OR MORE 07/17/2015 80838-THZVKPJ NAIL, 6 OR MORE 10/22/2015 78755-BLZXHDL NAIL, 6 OR MORE 01/12/2016 83645-XGELOKB NAIL, 6 OR MORE 04/22/2016 38718-CSDQSMT NAIL, 6 OR MORE 01/13/2017 00080-KWEKIZO NAIL, 6 OR MORE 04/14/2017 56569-QRVQZFN NAIL, 6 OR MORE 07/01/2016 55915-WERITPG NAIL, 6 OR MORE 07/04/2017 65285-DKNLEEC NAIL, 6 OR MORE 09/05/2017 18139-FRVIMBZ NAIL, 6 OR MORE 11/14/2017 37077-FXHSYUS NAIL, 6 OR MORE 01/16/2018 61985-NXMAZOO NAIL, 6 OR MORE 03/23/2018 16380-LIFGYZU NAIL, 6 OR MORE 05/25/2018 53861-ZUHAYNU NAIL, 6 OR MORE 07/27/2018 93778-BXNQZWP NAIL, 6 OR MORE 10/02/2018 56424-FGWDZTB NAIL, 6 OR MORE 12/04/2018 21580-ZSGWHJC NAIL, 6 OR MORE 02/05/2019 48690-ODKMDNZ NAIL, 6 OR MORE 04/12/2019 94079-OQXCSYK NAIL, 6 OR MORE 06/18/2019 41154-PTDMVJK NAIL, 6 OR MORE 09/03/2019 56587-GZBSIAY NAIL, 6 OR MORE 11/05/2019 85845-ZFFMYCN NAIL, 6 OR MORE 01/14/2020 75487-WMZIVPD NAIL, 6 OR MORE 03/17/2020 97206-QVNOAJL NAIL, 6 OR MORE 05/08/2020 07464-YCNUTZX NAIL, 6 OR MORE 07/10/2020 46851-AKEGUYU NAIL, 6 OR MORE 09/23/2020 21884-JYZSHEE NAIL, 6 OR MORE 11/25/2020 86206-HRKLMIK NAIL, 6 OR MORE 01/27/2021 87601-AMXQMKL NAIL, 6 OR MORE 04/09/2021 71696-ECHXRFX NAIL, 6 OR MORE 06/22/2021 38028-ALZKRSC NAIL, 6 OR MORE 08/25/2021 14339-PXXMAUS NAIL, 6 OR MORE 10/29/2021 03411-IQASVGB NAIL, 6 OR MORE 12/31/2021 06154-ODNEIHO NAIL, 6 OR MORE 03/08/2022 87143-AYKKUXU NAIL, 6 OR MORE 05/10/2022 34182-VYEPOGZ NAIL, 6 OR MORE 07/26/2022 72196-BISVCBE NAIL, 6 OR MORE 01/27/2023 66788-PWLONDA NAIL, 6 OR MORE 04/12/2023 83033-TPDUAMH NAIL, 6 OR MORE 06/16/2023 28078-VHTWYRL NAIL, 6 OR MORE 04/03/2024 79554-NHFBBEH NAIL, 6 OR MORE 07/01/2024 16468-Fswoujji Plate 06/22/2021 17206-Xnpwegie Plate 03/17/2020 80437-Ebeyvpkw Plate 02/05/2019 52566-Exnkroqn Plate 04/14/2017 42283-Ephxhutl Plate 04/17/2015 81970-Prfltmfb Plate 01/13/2015 32658-Psicdriz Plate 07/22/2014 51067-Wwnbstcd Plate 04/25/2014 39836-Varjrsae Plate 01/23/2014 60462- Debride <25 sq cm 01/27/2021 65179-MNOJ SKIN LESIONS, OVER 4 04/09/20 41181-IEAN SKIN LESIONS, OVER 4 01/28/20 54286-XRKA SKIN LESIONS, OVER 4 11/26/19 90849-NJMV SKIN LESIONS, OVER 4 09/23/19 16760-FGDZ SKIN LESIONS, OVER 4 06/22/20 21 37588-GDOH SKIN LESIONS, OVER 4 08/25/20 21 87002-HSNC SKIN LESIONS, OVER 4 01/01/20 22 17864-QVJQ SKIN LESIONS, OVER 4 10/30/19 22 74096-AAPW SKIN LESIONS, OVER 4 06/16/20 23 14002-CVBX SKIN LESIONS, OVER 4 04/12/20 23 81686-HORU SKIN LESIONS, OVER 4 01/28/20 23 64995-HADX SKIN LESIONS, OVER 4 07/26/20 22 36550-NYWV SKIN LESIONS, OVER 4 05/10/20 22 35378-MENL SKIN LESIONS, OVER 4 03/08/20 22 21280-VXXJ SKIN LESIONS, OVER 4 01/14/20 15 53947-MFEY SKIN LESIONS, OVER 4 07/17/20 15 99807-OSKB SKIN LESIONS, OVER 4 10/22/19 16 69556-MHDN SKIN LESIONS, OVER 4 01/12/20 16 71490-BMEM SKIN LESIONS, OVER 4 04/14/20 17 35472-GSEF SKIN LESIONS, OVER 4 07/04/20 17 87419-GEGR SKIN LESIONS, OVER 4 09/05/19 18 41690-CGLM SKIN LESIONS, OVER 4 07/01/20 16 64296-XANN SKIN LESIONS, OVER 4 01/14/20 17 68307-AAKF SKIN LESIONS, OVER 4 02/06/20 19 64470-RTZA SKIN LESIONS, OVER 4 12/05/19 19 32406-ALRJ SKIN LESIONS, OVER 4 10/02/19 19 45011-UUFJ SKIN LESIONS, OVER 4 07/27/20 18 34498-MWPM SKIN LESIONS, OVER 4 05/25/20 18 58092-BCLC SKIN LESIONS, OVER 4 03/23/20 18 09180-FJJA SKIN LESIONS, OVER 4 01/17/20 18 18580-HCMU SKIN LESIONS, OVER 4 11/15/19 18 11568-GZLF SKIN LESIONS, OVER 4 03/17/20 20 91636-UBRR SKIN LESIONS, OVER 4 01/14/20 82903-MHJU SKIN LESIONS, OVER 4 07/10/20 64589-FLJS SKIN LESIONS, OVER 4 05/08/20 69229-KOUW SKIN LESIONS, OVER 4 11/05/19 20 22641-OSRQ SKIN LESIONS, OVER 4 09/03/19 39406-FGYT SKIN LESIONS, OVER 4 06/18/20 19 89024-VWDT SKIN LESIONS, OVER 4 04/12/20 19 17228-YSKV SKIN LESIONS, 2 TO 4 04/22/20 16 09433-MHJO SKIN LESIONS, 2 TO 4 04/17/20 15 30452-HPHV SKIN LESIONS, 2 TO 4 04/25/20 14 04100-WIZQ SKIN LESIONS, 2 TO 4 07/22/20 14 15247-GNEJ SKIN LESIONS, 2 TO 4 02/08/20 13 89867-SDRD SKIN LESIONS, 2 TO 4 01/24/20 14 23069-RWHQ SKIN LESIONS, 2 TO 4 08/08/20 13 13423-SGMP SKIN LESIONS, 2 TO 4 05/09/20 13 18224-UXMW SKIN LESIONS, 2 TO 4 07/01/20 24 94858-SHVX SKIN LESIONS, 2 TO 4 04/03/20 24 Next Appt Details Provider Name:Fernando Fritz Gerardo , 09/19/2024 03:15:00 PM, [address] [facility] [address], [place], [address], Insurance Providers Payer Name Payer Address Payer Phone Subscriber Number Group Number Insured Name Patient Relationship to Insured Coverage Start Date Coverage End Date Medicare National Govt [facility] [address] [place] [address] [id number] Hardeep Barker Self - patient is the insured [facility] [address] [place] [id number] Hardeep Barker Self - patient is the insured Medical (General) History Medical History History ICD Code angina Arthritis asthma back, hip, knee pain broken bones cholesterol diabetic diverticulosis heart disease high blood pressure kidney disease neuropathy measles Gout COPD Shingles Measles Mumps Chicken pox Unspecified cirrhosis of liver K74.60 Pacemaker Heart attack Surgical History Surgery Date(Month/Year) facial cosmetic surgery stent insertion heart prostate procedure (laser) right eye sx 12/2020 afib procedure 08/13/21 cataract surgery 12/2023 Hospitalization History Reason Date(Month/Year) [facility] Broken femur 01/13/2024 [facility] [place] pacemaker 08/2022 [facility]- 19 day stay, heart procedure [facility] covid 06/07/2021 [facility] Anemia 09/2019 [facility] lung infection 05/2019 [facility] Right knee replacement 10/27 02/12 [facility];bladder infection 5 Emergency Room- foot pain mayJul 2012 [facility] for foot pain-ER aug or sep 2012
== END 2024-08-02 12:18 | disposition home or self-care (01) ==
LOC: HO.HUSH 10:42
PROVIDERS: PCP Internal Medicine; Visit Provider Urology
DX: N32.0 Bladder-neck obstruction (principal); N39.0 Urinary tract infection, site not specified; S72.90XA Unspecified fracture of unspecified femur, initial encounter for closed fracture
CPT/HCPCS: 99213

== ENCOUNTER → 2024-08-02 10:42 | Outpatient (BNVA) | payer MEDICARE, OTHER, SELFPAY | PROVIDERS: PCP Internal Medicine; Visit Provider Urology ==

== ENCOUNTER 2024-09-20 10:32 | Outpatient (AMB) | payer MEDICARE, OTHER, SELFPAY ==
--- NOTE | 2024-09-20 10:32 | MHC.OFFVIS ---
Intake Visit Reasons: Discuss denial of bone scan Intake Note: Patient is present for DISCUSS DENIAL OF BONE SCAN Urology Medication:TAMSULOSIN,FINASTERIDE,ALLOPURINOL Antibiotic Allergy:AMOXICILLIN Blood Thinner:APIXABAN Pearl Digger Required: No Allergies amoxicillin [AMOXICILLIN] Allergy (Intermediate, Verified 09/20/24 10:33) SKIN SLOUGHING HPI Comments Details: Hardeep is a pleasant male. He seen for following urologic issues - lower urinary tract symptoms - urinary culture Telemedicine Evaluation 15 min Consultation Doximity Guille Video Significant improvement after antibiotics for UTI Would like antibiotics to self start Underwent cystoscopy beginning of this year Has recurrent BPH Previously discussed prostate procedures Had attempted to order DEXA scan for osteopenia following fracture. Denied by his insurance. Longstanding diabetic Lower urinary tract symptoms Prior prostate procedure Has both storage and emptying symptoms Urinary urgency with weakness of stream Diabetic on Jardiance Prostate medications include tamsulosin PFSH Surgical History Hx of cystoscopy Review of Systems Const All systems reviewed & are unremarkable except as noted in HPI and below Reports no additional complaints Resp Reports no additional complaints GI Reports no additional complaints Reports as per HPI Musc Reports no additional complaints Physical Exam Telemedicine evaluation Appropriate responses Regular breathing rate and rhythm HEENT Head: Yes normal to inspection Ears: hearing grossly normal bilaterally Eyes General: appearance normal, both eyes and all related structures Neck Neck: Yes normal visual inspection Chest Chest palpation & inspection: normal inspection of the chest Resp Effort & Inspection: normal respiratory effort and able to speak in complete sentences Telehealth Telehealth Telehealth Platform: [employer] Location of provider rendering services: practice address Location of patient: address on file Patient Identification confirmed using: Name, : Yes Telehealth method: video Patient verbally consented to treatment: Yes Patient verbally consented to billing insurance company: Yes Patient informed of any privacy concerns related to visit: Yes Minutes spent on Phone/Video with Pt.: 15 Assessment & Plan Assessment & Plan (1) Complicated urinary tract infection: Code(s): N39.0 - Urinary tract infection, site not specified Category: Medical (2) Bladder outlet obstruction: Code(s): N32.0 - Bladder-neck obstruction Category: Medical Plan January follow-up ABX prescribed Medications: Refilled sulfamethoxazole-trimethoprim 800-160 mg (Bactrim DS) 1 tab PO BID 28 tabs 0RF 14 days N39.0 - Urinary tract infection, site not specified Patient Instructions: This note is constructed using voice recognition software. While every effort has been made to ensure accuracy executive compensation analyst errors may have been included. Imaging studies, laboratory and physical exam results were discussed and reviewed in detail. No major barriers to patient understanding were identified. An opportunity to ask questions regarding the treatment plan was provided. All questions were answered. The patient expressed understanding and agreement with the above treatment plan. The patient is aware they should contact our office by phone for worsening of their current condition or the appearance of new urologic symptoms. Compliance is encouraged with any medications and followup testing that is ordered. It is a privilege to participate in the urologic care of your patient. If you have any questions or concerns regarding treatment for the above conditions, or other urologic issues, please do not hesitate to contact me. The office telephone contact is [phone]. Sincerely, Dr Franco Staples MD, [facility] - Urology Compassionate Specialist Care for the Genitourinary System Coding Level of Care Code Tele Est Pt Level 3 (05784) Complex EM visit Add On G2211 Diagnoses Complicated urinary tract infection N39.0 Bladder outlet obstruction N32.0
--- OUTSIDE RECORDS SUMMARY | 2024-09-20 11:54 | XMS_ITS | Clinical Summary ---
Author Organization [facility] Address [address] [place] [address] Phone Care Team Providers Care Cloth Sponger Name Role Phone Raheem Pettit MD Primary Care Provider [phone] Encounters Date Type Department Care Team Description 07/09/2024 1:16 PM EST - 07/09/2024 11:59 PM EST Hospital Encounter [facility] CT Scan [address] [place] [address] Solitary pulmonary nodule Discharge Disposition: Home or Self Care from Last 3 Months Immunizations Name Administration Dates Next Due Pfizer SARS-CoV-2 COVID-19, mRNA, LNP-S, preservative free 11/01/2020,10/11/2020 Medical History Medical History Date Comments Anemia DX:Anemia Diabetes (CMS/HCC) DX:Diabetes ( HCC) Cirrhosis (CMS/HCC) DX:Cirrhosis (HCC) Chronic kidney disease DX:Chroni c kidney disease Hyperglycemia DX:Hyperglycemia Severe obesity (CMS/HCC) DX:Leslie re obesity (HCC) Type 2 diabetes mellitus (CMS/HCC) DX:Type 2 diabetes mellitus (HCC) Social History Tobacco Use Types Packs/Day Years Used Date Smoking Tobacco: Former Smokeless Tobacco: Never Alcohol Use Standard Drinks/Week Comments Yes 0 (1 standard drink = 0.6 oz pur e alcohol) Sex and Gender Information Value Date Recorded Sex Assigned at Not on file Gender Identity Not on file Sexual Orientation Not on file Job Start Date Occupation Industry Not on file Not on file Not on file Obstetrics History Last Filed Vital Signs Vital Sign Reading Time Taken Comments Blood Pressure 124/58 12/14/2022 11:19 AM EDT Sitting L Arm Pulse 60 12/14/2022 11:19 AM EDT Temperature - - Respiratory Rate - - Oxygen Saturation - - Inhaled Oxygen Concentration - - Weight 110 kg (241 lb 9.6 oz) 3 11:19 AM EDT Height 177.8 cm (5' 10 ) 05/26/2022 9:1 4 AM EDT Body Mass Index 34.67 05/26/2022 9:14 AM EDT Plan of Treatment Health Maintenance Due Date Last Done Comments Diabetes: Annual Foot Exam 1950 Hepatitis B Vaccines (1 of 3 - Risk 3-dose series) 2002 Pneumococcal Vaccine: 65+ Years (2 of 2 - PPSV23 or PCV20) 11/16/2019 09/21/2019 Depression Screening 07/31/2022 Falls Risk Assessment 07/31/2022 Medicare Annual Wellness Visit 07/31/2022 Social Influencers of Health Screening 07/31/2022 Diabetes: Annual Urine Albumin-Creatinine Ratio (uACR) 08/04/2022 Diabetes: Blood Sugar Control Test (HGBA1C) 06/06/2023 12/05/2022, 11/01/2022 Diabetes: Annual GFR (Glomerular Filtration Rate) 11/05/2023 11/04/2022, 06/03/2019, 05/30/2019 Hypertension/CHF/CAD Annual BMP Blood Test 11/05/2023 11/04/2022, 06/03/2019, 05/30/2019 COVID-19 Vaccine ( season) 2024 07/11/2023, 07/15/2022, 09/07/2021, Additional history exists Influenza Vaccine (#1) 2024 2, 05/18/2021, 04/23/2021, Additional history exists Diabetes: Annual Retina Eye Exam 05/15/2025 05/15/2024 Cholesterol Screening (Lipid Panel) 06/07/2029 06/07/2024, 10/31/2022 DTaP,Tdap,and Td Vaccines (2 - Td or Tdap) 12/11/2031 12/10/2021 Zoster Vaccines Completed 09/11/2018, 07/11/2018 Hepatitis A Vaccines Completed 06/01/2020, 08/22/20 19 RSV Immunization Patients 60+ Years Old Completed 07/11/2023 HIB Vaccines Aged Out No longer eligi ble based on patient's age to complete this topic HPV Vaccines Aged Out No longer eligi ble based on patient's age to complete this topic IPV Vaccines Aged Out No longer eligi ble based on patient's age to complete this topic MMR Vaccines Aged Out No longer eligi ble based on patient's age to complete this topic Meningococcal ACWY Vaccine Aged Out N o longer eligible based on patient's age to complete this topic RSV Immunization Patients Under 20 months Aged Out No longer eligible based on patient's age to complete this topic Varicella Vaccines Aged Out No longer eligible based on patient's age to complete this topic Procedures Procedure Name Priority Date/Time Associated Diagnosis Comments CT CHEST WO CONTRAST Routine 07/09/2024 1:40 PM EST Solitary pulmonary nodule from Last 3 Months Results * CT Chest wo Contrast (07/09/2024 1:40 PM EST) Anatomical Region Laterality Modality Body Computed Tomogra phy 07/10/2024 10:5 4 AM EST Impressions 07/10/2024 11:16 AM EST Only small pulmonary nodules are noted. ??If the patient is considered low risk for lung cancer, no further follow-up is needed. ??If the patient is considered high risk, follow-up examination may be considered in one year. -------- FINAL REPORT -------- Dictated By: Yousif Moss Dictated Date: 07/10/2024 10:54 ET Assigned Physician: Yousif Moss Reviewed and Electronically Signed By: Yousif Moss Signed Date: 07/10/2024 11:16 ET Workstation ID: [id number] Transcribed By: Self Edit Transcribed Date: 07/10/2024 10:54 ET Narrative 07/10/2024 11:[address] chest without contrast HISTORY: Pulmonary nodule. COMPARISON: ??None. TECHNIQUE: Noncontrast CT was performed of the chest. ??Reformatted images were provided. DOSE: CTDIvol: 27.5/39.4mGy. ??Total exam DLP: 1189.7mGy-cm FINDINGS: There are several very small pulmonary nodules noted in the right and left chest. ??3 mm nodule is noted in the left upper lobe (series 4 image 122). ??No consolidation or effusion. Mediastinum appears normal. ??No abnormal lymphadenopathy. ??Heart size is normal without effusion. ??Mild plaque in the aorta without aneurysm. Chest wall appears within normal limits. ??No abnormal lymphadenopathy is noted. Limited views of the upper abdomen appear within normal limits. Mild degenerative changes of the spine. Procedure Note Yousif Moss MD - 07/10/2024 CT chest without contrast HISTORY: Pulmonary nodule. COMPARISON: None. TECHNIQUE: Noncontrast CT was performed of the chest. Reformatted imageswere provided. DOSE: CTDIvol: 27.5/39.4mGy. Total exam DLP: 1189.7mGy-cm FINDINGS: There are several very small pulmonary nodules noted in the right and leftchest. 3 mm nodule is noted in the left upper lobe (series 4 image 122).No consolidation or effusion. Mediastinum appears normal. No abnormal lymphadenopathy. Heart size isnormal without effusion. Mild plaque in the aorta without aneurysm. Chest wall appears within normal limits. No abnormal lymphadenopathy isnoted. Limited views of the upper abdomen appear within normal limits. Mild degenerative changes of the spine. IMPRESSION: Only small pulmonary nodules are noted. If the patient is considered lowrisk for lung cancer, no further follow-up is needed. If the patient isconsidered high risk, follow-up examination may be considered in oneyear. -------- FINAL REPORT -------- Dictated By: Yousif Moss Dictated Date: 07/10/2024 10:54 ET Assigned Physician: Yousif Moss Reviewed and Electronically Signed By: Yousif Moss Signed Date: 07/10/2024 11:16 ET Workstation ID: [id number] Transcribed By: Self Edit Transcribed Date: 07/10/2024 10:54 ET Rimma Pettit MD IMG CT PROCEDURES from Last 3 Months Care Teams Cloth Sponger Relationship Specialty Start Date End Date Raheem Pettit MD PCP - General Internal Medicine 08/08/18
--- OUTSIDE RECORDS SUMMARY | 2024-09-20 11:54 | XMS_ITS ---
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 Vital Signs Height 5 ft 10 in in 04/03/2024 Weight 240 lbs 04/03/2024 BMI 34.43 kg/m2 04/03/2024 Procedures Procedure Date Ordered Date Performed Result Body Sit e 95898-WOAYHQP NAIL, 6 OR MORE 04/03/2024 N/A 81534-LARZ SKIN LESIONS, 2 TO 4 04/03/2024 N/A Encounters Encounter Location Date Provider Diagnosis [facility] [place] [address] [place] [id number] 04/03/2024 Fernando Carrillo Type 1 diabetes mellitus with diabetic polyneuropathy E10.42 and Tinea unguium B35.1 Assessments Encounter Date Diagnosis (ICD Code) Assessment Notes Treatment Notes Treatment Clinical Notes Section Notes 04/03/2024 Type 1 diabetes mellitus with diabetic polyneuropathy (ICD-10 - E10.42) 04/03/2024 Tinea unguium (ICD-10 - B35.1) Plan Of Treatment Pending Test Test Name Order Date 04198-ZNAEGIS NAIL, 6 OR MORE 04/03/2024 90600-LBXA SKIN LESIONS, 2 TO 4 04/03/20 24 Next Appt Details Follow Up: prn, Reason: Provider Name:Fernando Carrillo , 01/27/2025 01:00:00 PM, [facility], [place] [address], [place], [address], Procedure Notes * Category Sub-Category Detail Notes [...] as necessary. Patient chooses, no pharmaceutical tx (43296) Keratoma Treatment Parring or Cutting o f Benign Hyperkeratotic Lesion(s) 42455 ( 2-4 Lesions ) - The Benign hyperkeratotic lesions, as described above were pared, and/or cut utilizing a sterile 15 blade, tissue nippers, and/or dremel Progress Notes * Hardeep HOLGUIN LDOB: [birth year] (84 yo M)Acc No.[id number]:04/03/2024 Progress Note Patient:?Harford Hardeep L Provider:?Fernando Carrillo DPM :1940???Age:84 Y???Sex:Male Parvez e:04/03/2024 Address:[address] [place] [address] [address], [place], [id number] Pcp:Rimma Pettit Subjective: * Chief Complaints: * [...] 08/13/21cataract surgery 12/2023 * Hospitalization/Major Diagno stic Procedure:?[facility] for foot pain-ER aug or sep 2012[facility]- foot pain oct jun or jul 2012[facility];bladder infection 10/2014[facility] 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[facility] lung infection 05/2019[facility] Anemia 09/2019[facility] covid 06/07/2021- 19 day stay, heart procedure [...] as necessary. Patient chooses, no pharmaceutical tx (84814).?Keratoma Treatment:?Parring or Cutting of Benign Hyperkeratotic Lesion(s)?49938 ( 2-4 Lesions ) - The Benign hyperkeratotic lesions, as described above were pared, and/or cut utilizing a sterile 15 blade, tissue nippers, and/or dremel.? * Procedure Codes:?47112 DEBRI DE NAIL, 6 OR MORE, Modifiers: XS 98340 TRIM SKIN LESIONS, 2 TO 4, Modifiers: XS * Follow Up:?prn * Images: * Sign off status: Completed true * Provider:?Fernando Carrillo DPM Date:?2023 Generated for Ramsey staley/Rubén/Isaaksmitting on:?09/20/2024 11:53 AM EST History and Physical Notes * HPI (History of Present Illness) Category Sub-Category Detail Notes Category Not es At Risk footcare Pt States Last PCP Visit: Date: 4 Examination Category Sub-Category Detail Notes Category Not [...]
--- OUTSIDE RECORDS SUMMARY | 2024-09-20 11:55 | XMS_ITS ---
Author Organization [facility] [place] Address [address] [place] [address] Care Team Providers Care Filter Pulp Washer Name Role Phone Rimma Pettit Primary Care Provider Fernando Diane Unavailable [phone] Allergies Allergen (clinical drug ingredient) Drug/Non Drug Allergy documented on EMR Reaction Allergy Type Onset Date Status amoxicillin Amoxicillin rash, skin peeling Drug Allergy Active Doxycycline Calcium Reaction Drug Allergy Active REASON FOR VISIT At Risk Footcare Medications Medication SIG (Take, Route, Frequency, Duration) Notes Start Date End Date Status HumaLOG KwikPen 32 units as directed Subcutaneous Not-Taking Lantus SoloStar 74units 0.02 ml Subcutaneous Once a day for 30 day(s) Not-Taking Calcium Not-Taking Finasteride 1 MG 1 tablet Orally Once a day for 30 day(s) Not-Taking Tamsulosin HCl 0.4 MG 1 capsule 30 minut es after the same meal each day Orally Once a day for 30 day(s) Not-Taking Singulair 10 MG 1 tablet in the evening Orally Once a day for 30 day(s) Not-Taking Lisinopril 20 MG 1 tablet Orally Once a day Not-Taking AndroGel 2 pumps per arm each day Not-Taking Fluticasone Propionate Not-Taking Klor-Con M10 Not-Doug ing Aspirin 81 MG 1 tablet Orally Once a day for 30 day(s) Not-Taking Glimepiride 4 MG 1 tablet with breakfast or the first main meal of the day Orally Once a day for 30 day(s) Not-Taking Spiriva HandiHaler 18 MCG 1 capsule Inhalation Once a day Not-Taking Advair Diskus 500-50 MCG/DOSE 1 puff Inhalation Twice a day Not-Taking Xarelto 20 MG 1 tablet Orally Once a day Not-Taking Metoprolol Succinate ER 50 MG 1 tablet Orally Once a day for 30 day(s) Not-Taking Furosemide 40 MG 1 tablet Orally Once a day twice a day Not-Taking Vitamin D Not-Taking Magnesium Not-Taking Qnasl 80 MCG/ACT 2 puffs in each nostril Nasally Once a day for 30 day(s) Not-Taking Trelegy Ellipta 100-62.5-25 MCG/ACT 1 puff Inhalation Once a day Active ProAir HFA 108 (90 Base) MCG/ACT 2 puffs as needed Inhalation every 4 hrs Not-Taking Nebulizer Not-Taking One Touch/One Touch II Starter Not-Taking BD Pen Needle Short U/F 31G X 8 MM as directed Not-Taking Trulicity Active Torsemide 40 MG 1 tablet Orally Once a day Active Simvastatin 40 MG 1 tablet in the evening Orally Once a day for 30 day(s) Active NovoLOG FlexPen Acti ve NovoLOG 100 UNIT/ML Subcutaneous Active Montelukast Sodium 10 MG 1 tablet Orally Once a day Active Metoprolol Succinate ER 25 MG 1 tablet Orally Once a day Active Empagliflozin 10 MG 1 tablet Orally Once a day Active Eliquis 2.5 MG 1 tablet Orally Twice a day Active Nitrostat 0.4 MG 1 tablet under the tongue and allow to dissolve as needed Sublingual every 0 hrs Active Clindamycin HCl 300 MG 2 capsules Orally every 8 hrs Active Carvedilol 3.125 MG 1 tablet with food Orally Twice a day Active Basaglar KwikPen Act marlon Albuterol Sulfate HFA Active Apixaban 2.5 MG 1 tablet Orally Twice a day Active Allopurinol 300 MG 1 tablet Orally Once a day Active Social History Tobacco Use: Social History Observation Description Date Details (start date - stop date) Never Smoker NA - NA Alcohol Screen Question Answer Notes Did you have a drink containing alcohol in the p ast year? No Points 0 Interpretation Negative Tobacco Control (Standard) Question Answer Notes Tobacco use: Nonsmoker Additional Findings: Tobacco non-user Current no nsmoker Vital Signs Height 5 ft 10 in in 09/19/2024 Weight 258.2 lbs 09/19/2024 BMI 37.04 kg/m2 09/19/2024 Blood pressure systolic 132 mm Hg 09/19/19 25 Blood pressure diastolic 69 mm Hg 025 Procedures Procedure Date Ordered Date Performed Result Body Sit e 94125-VJWJHTI NAIL, 6 OR MORE 09/19/2024 N/A 45552-PNAQ SKIN LESIONS, 2 TO 4 09/19/2024 N/A Encounters Encounter Location Date Provider Diagnosis [facility] [address] [place] [id number] 09/19/2024 Fernando Carrillo Type 1 diabetes mellitus with diabetic polyneuropathy E10.42 and Tinea unguium B35.1 Assessments Encounter Date Diagnosis (ICD Code) Assessment Notes Treatment Notes Treatment Clinical Notes Section Notes 09/19/2024 Type 1 diabetes mellitus with diabetic polyneuropathy (ICD-10 - E10.42) 09/19/2024 Tinea unguium (ICD-10 - B35.1) Plan Of Treatment Pending Test Test Name Order Date [id number] NAIL, 6 OR MORE 09/19/2024 [id number]-[id number] SKIN LESIONS, 2 TO 4 09/19/19 25 Next Appt Details Follow Up: prn, Reason: Provider Name:Fernando Carrillo , 01/27/2025 01:00:00 PM, [facility], [place] [address], [place], [phone], Procedure Notes * Category Sub-Category Detail Notes Debride Nail 6-10 Nail debridement Due to the cl inical pathology outlined in the exam findings, performance of this nail treatment is medically necessary as its management by an unskilled/untrained nonprofessional would put this patients foot and overall health at risk. Therefore, debridement to affected nail(s), as described in exam ( TA, T1, T2, T3, T4, T5, T6, T7, T8, T9 ), was performed exclusively by the physician of record to reduce/remove overall nail length, girth, thickness, subungual debris, and necrotic tissue, by manual and/or electrical means through the use of a nail nipper and/or dremel-type grinder dresser, to a more viable healthy nail plate or bed tissue 6-10 nails in total. Silver nitrate was used for any petechial bleeding as necessary. Definitive antifungal treatment options, both pharmaceutical and surgical, have been reviewed and discussed with the patient. The patient solely prefers the use of intermittent/as needed professional debridement services for their nail condition and understands the need for additional periodic treatments to maintain effectiveness in symptomatic relief - 07811 Keratoma Treatment Parring or Cutting o f Benign Hyperkeratotic Lesion(s) (-56) 2-4 Lesions - Due to the at risk nature of the patients medical condition as documented in the exam findings, performance of this keratoderma treatment is medically necessary as its management by an unskilled/untrained nonprofessional would put this patients foot and overall health at risk. Therefore, the benign hyperkeratotic lesions, ( 2 ) in total, locations as stated and described in the exam ( SUB MTH (s), 1, B/L , Plantar, Heel(s) , B/L ), were pared, and/or cut utilizing a sterile 15 blade, tissue nippers, and/or power dremel instrumentation by the physician of record - 28254 Progress Notes * Hardeep HOLGUIN LDOB: [birth year] (84 yo M)Acc No.[id number]:09/19/2024 Progress Note Patient:?Hardeep HOLGUIN Provider:?Fernando Carrillo DPM :1940???Age:84 Y???Sex:Male Parvez e:09/19/2024 Address:[address] [place] [address], [place], [id number] Pcp:Rimma Pettit Subjective: * Chief Complaints: * ???At Risk Footcare * HPI: ???At Risk footcare:?Pt States Last PCP Visit:?Date?06/24/2024 * ROS:?General/Constitutional:?Nausea?denies.?Vomiting?denies.?Hunger Thirst?denies.?Loss appetite?denies.?Chills?denies.?Fatigue?denies.?Fever?denies.?Night Sweats?denies.?Unexplained weight loss?denies.?Ophthalmologic:?Blurred vision?denies.?Red eye?denies.?HEENTM:?Dentures?denies.?Dizziness?denies.?Glasses/contacts?admits.?Retinopathy?den ies.?Blurred/double vision?denies.?TMJ?denies.?Discharge/drainage?denies.?Implants?denies.?Hard of hearing admits.?Difficulty chewing/swallowing/speaking?admits.?Nose bleeds?denies.?Sore mouth?denies.?Swollen glands?denies.?Respiratory:?On O xygen?denies.?Pneumonia/pleurisy?admits.?Bronchitis?admits.?Emphysema?admits.?Co ughing?admits.?Cough blood?denies.?Shortness of breath?admits.?Wheezing?denies.?Cardiovascular:?Pacemaker?admits.?MVP?denies.?WPW?denies.?CHF?denies.?Heart attack?admits , denies.?Septal defect?denies.?Rapid beat?denies.?Chest pain ?admits.?Atrial Fib.?denies.?Murmur/Palpitations?denies.?Gastrointestinal:?Hemorrhoids?denies.?Stomach/Abdominal pain?denies.?Dark blood stool?denies.?Irritable bowel ?denies.?Constipation?denies.?Diarrhea?denies.?Vomiting?denies.?Hematology:?Swelling?admits.?Bruising?admits, on anticoagulants.?Bleeding problem?admits, on anticoagulants.?Genitourinary:?Blood urine?admits.?Frequent/Painfu/urination/bladder control?denies.?Kidney stones?admits.?Infection (UTI)?admits , denies.?Nephropathy?admits.?Musculoskeletal:?Hammertoes?admits.?Bunions?denies.?Scoliosis/kyphosis?denies.?Muscle cramps / walking?admits.?Generalized aches and pains?admits.?Weakness?denies.?Integ.:?Cantu?denies.?Scars?denies.?Corns/calluses?admits.?Ingrown nails?admits.?Painful nails?denies.?Rashes?denies.?Neurologic:?Difficulty sleeping?admits.?Bipolar?denies.?Brain disorder?denies.?Balance t rouble?admits.?Confusion?denies.?Fainting/blackouts?denies.?Headache?denies.?Robbie mors?denies.? * Medical History:? * Surgical History:?facial cos metic surgery stent insertion heart prostate procedure (laser) right eye sx fib procedure 08/13/21cataract surgery 12/2023 * Hospitalization/Major Diagno stic Procedure:?[facility] for foot pain-ER aug or sep 2012[facility]- foot pain oct jun or jul 2012[facility];bladder infection 10/2014[facility] 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[facility] [place] [place] [place] covid 06/07/2021- 19 day stay, heart procedure [facility] [place] pacemaker Broken femur 01/13/2024 * Family History:?Mother: dece ased, poor circulation, diagnosed with Diabetic - NIDDM, Unspecified essential hypertension, Unspecified cerebral artery occlusion with cerebral infarction, Family history of arthritis.?Father: , diagnosed with Other malignant neoplasm of unspecified site, Unspecified essential hypertension.?Spouse: alive.?Siblings: diagnosed with Other malignant neoplasm of unspecified site, Diabetic - NIDDM, Unspecified essential hypertension, Family history of arthritis.? * Social History:?Tobacco Use:?Tobacco use other than smoking?Are you an other tobacco user? No.?Tobacco Control (Standard)?Tobacco use:?Nonsmoker ?Additional Findings: Tobacco non-user?Current nonsmoker ???Drugs/Alcohol:?Drugs?Have you used drugs other than those for medical reasons in the past 12 months??No ?Alcohol Screen?Did you have a drink containing alcohol in the past year??No ?Points?0 ?Interpretation?Negative ???Miscellaneous:?Caffeine: yes, frequency:, 1-2 cups per day. ?Children: yes. ?Exercise: no. ?Marital status: . ?Occupation: Retired. * Medications:?TakingAllopurin ol 300 MG Tablet 1 tablet Orally Once a day Apixaban 2.5 MG Tablet 1 tablet Orally Twice a day Albuterol Sulfate HFA Basaglar KwikPen Carvedilol 3.125 MG Tablet 1 tablet with food Orally Twice a day Clindamycin HCl 300 MG Capsule 2 capsules Orally every 8 hrs Eliquis 2.5 MG Tablet 1 tablet Orally Twice a day Empagliflozin 10 MG Tablet 1 tablet Orally Once a day Metoprolol Succinate ER 25 MG Tablet Extended Release 24 Hour 1 tablet Orally Once a day Montelukast Sodium 10 MG Tablet 1 tablet Orally Once a day Nitrostat 0.4 MG Tablet Sublingual 1 tablet under the tongue and allow to dissolve as needed Sublingual every 0 hrs NovoLOG 100 UNIT/ML Solution Subcutaneous NovoLOG FlexPen Simvastatin 40 MG Tablet 1 tablet in the evening Orally Once a day Torsemide 40 MG Tablet 1 tablet Orally Once a day Zhen Zamora Ellipta 100-62.5-25 MCG/ACT Aerosol Powder Breath Activated 1 puff Inhalation Once a day Taking Allopurinol 300 MG Tablet 1 tablet Orally Once a day Taking Apixaban 2.5 MG Tablet 1 tablet Orally Twice a day Taking Albuterol Sulfate HFA Taking Basaglar KwikPen Taking Carvedilol 3.125 MG Tablet 1 tablet with food Orally Twice a day Taking Clindamycin HCl 300 MG Capsule 2 capsules Orally every 8 hrs Taking Eliquis 2.5 MG Tablet 1 tablet Orally Twice a day Taking Empagliflozin 10 MG Tablet 1 tablet Orally Once a day Taking Metoprolol Succinate ER 25 MG Tablet Extended Release 24 Hour 1 tablet Orally Once a day Taking Montelukast Sodium 10 MG Tablet 1 tablet Orally Once a day Taking Nitrostat 0.4 MG Tablet Sublingual 1 tablet under the tongue and allow to dissolve as needed Sublingual every 0 hrs Taking NovoLOG 100 UNIT/ML Solution Subcutaneous Taking NovoLOG FlexPen Taking Simvastatin 40 MG Tablet 1 tablet in the evening Orally Once a day Taking Torsemide 40 MG Tablet 1 tablet Orally Once a day Taking Trulicity Taking Trelegy Ellipta 100-62.5-25 MCG/ACT Aerosol Powder Breath Activated 1 puff Inhalation Once a day Not- Taking/PRNBD Pen Needle Short U/F 31G X 8 MM Miscellaneous as directed One Touch/One Touch II Starter Nebulizer ProAir HFA 108 (90 Base) MCG/ACT Aerosol Solution 2 puffs as needed Inhalation every 4 hrs Qnasl 80 MCG/ACT Aerosol Solution 2 puffs in each nostril Nasally Once a day Magnesium Vitamin D Furosemide 40 MG Tablet 1 tablet Orally Once a day , Notes to Pharmacist: twice a dayMetoprolol Succinate ER 50 MG Tablet Extended Release 24 Hour 1 tablet Orally Once a day Glimepiride 4 MG Tablet 1 tablet with breakfast or the first main meal of the day Orally Once a day Aspirin 81 MG Tablet Chewable 1 tablet Orally Once a day Xarelto 20 MG Tablet 1 tablet Orally Once a day Advair Diskus 500-50 MCG/DOSE Aerosol Powder Breath Activated 1 puff Inhalation Twice a day Spiriva HandiHaler 18 MCG Capsule 1 capsule Inhalation Once a day Singulair 10 MG Tablet 1 tablet in the evening Orally Once a day Klor-Con M10 Fluticasone Propionate AndroGel Gel 2 pumps per arm each day Lisinopril 20 MG Tablet 1 tablet Orally Once a day Calcium Lantus SoloStar 74units Solution 0.02 ml Subcutaneous Once a day HumaLOG KwikPen 32 units Solution as directed Subcutaneous Tamsulosin HCl 0.4 MG Capsule 1 capsule 30 minutes after the same meal each day Orally Once a day Finasteride 1 MG Tablet 1 tablet Orally Once a day Medication List reviewed and reconciled with the patientNot-Taking/PRN BD Pen Needle Short U/F 31G X 8 MM Miscellaneous as directed Not-Taking/PRN One Touch/One Touch II Starter Not-Taking/PRN Nebulizer Not-Taking/PRN ProAir HFA 108 (90 Base) MCG/ACT Aerosol Solution 2 puffs as needed Inhalation every 4 hrs Not-Taking/PRN Qnasl 80 MCG/ACT Aerosol Solution 2 puffs in each nostril Nasally Once a day Not-Taking/PRN Magnesium Not-Taking/PRN Vitamin D Not-Taking/PRN Furosemide 40 MG Tablet 1 tablet Orally Once a day , Notes to Pharmacist: twice a dayNot-Taking/PRN Metoprolol Succinate ER 50 MG Tablet Extended Release 24 Hour 1 tablet Orally Once a day Not-Taking/PRN Glimepiride 4 MG Tablet 1 tablet with breakfast or the first main meal of the day Orally Once a day Not-Taking/PRN Aspirin 81 MG Tablet Chewable 1 tablet Orally Once a day Not-Taking/PRN Xarelto 20 MG Tablet 1 tablet Orally Once a day Not-Taking/PRN Advair Diskus 500-50 MCG/DOSE Aerosol Powder Breath Activated 1 puff Inhalation Twice a day Not-Taking/PRN Spiriva HandiHaler 18 MCG Capsule 1 capsule Inhalation Once a day Not-Taking/PRN Singulair 10 MG Tablet 1 tablet in the evening Orally Once a day Not-Taking/PRN Klor-Con M10 Not-Taking/PRN Fluticasone Propionate Not-Taking/PRN AndroGel Gel 2 pumps per arm each day Not-Taking/PRN Lisinopril 20 MG Tablet 1 tablet Orally Once a day Not-Taking/PRN Calcium Not-Taking/PRN Lantus SoloStar 74units Solution 0.02 ml Subcutaneous Once a day Not-Taking/PRN HumaLOG KwikPen 32 units Solution as directed Subcutaneous Not-Taking/PRN Tamsulosin HCl 0.4 MG Capsule 1 capsule 30 minutes after the same meal each day Orally Once a day Not-Taking/PRN Finasteride 1 MG Tablet 1 tablet Orally Once a day Medication List reviewed and reconciled with the patient * Allergies:?Amoxicillin: rash , skin peeling - AllergyDoxycycline Calcium: Reactionyes[Allergies Verified] Objective: * Vitals:?Ht: 5 ft 10 in, Wt: 258.2, BMI: 37.04, Shoe size: 11, BP: 132/69 mm Hg, BS: 145, Wt-k.12 kg. * ???Past Orders: ???Lab:HEMOGLOBIN A1C (GLYCO HEMOGLOBIN) (Order Date - 06/11/2024) (Collection Date & Time - 06/11/2024 03:20 PM) ? Value Reference Range ?HEMOGLOBIN A1C % (HH) 7.9 * Examination: ???Ophthalmology Referral: ?DIABETES EYE EXAM?Neurological: ?SENSORY:?Neurological exam demonstrates, reduced sharp/dull discrimination , reduced vibration sensation, reduced light touch sensation, 5.07 monofilament test performed at plantar aspects of 5 varied sites per foot shows sensation, absent, at Forefoot, at Midfoot, at Rearfoot, B/L, Pt relates,cont.?anesthesia.?Nails: ?NAILS are:?Elongated, overgrown, dystrophic, lytic, greater than 3mm thick, discolored and friable with crumbly malodorous subungual debris, TA, T1, T2, T3, T4, T5, T6, T7, T8, T9.?Dermatologic: ?SKIN FINDINGS:?Skin exam reveals Keratotic lesion(s) located at, SUB MTH (s), 1, B/L , Plantar, Heel(s) , B/L.? Assessment: * Assessment: 1.?Type 1 diabetes mellitus with diabetic polyneuropathy - E10.42 (Primary)???2.?Tinea unguium - B35.1??? Plan: * Treatment: * Procedures:?Debride Nail 6-10:?Nail debridement?Due to the clinical pathology outlined in the exam findings, performance of this nail treatment is medically necessary as its management by an unskilled/untrained nonprofessional would put this patients foot and overall health at risk. Therefore, debridement to affected nail(s), as described in exam (?TA, T1, T2, T3, T4, T5, T6, T7, T8, T9?), was performed exclusively by the physician of record to reduce/remove overall nail length, girth, thickness, subungual debris, and necrotic tissue, by manual and/or electrical means through the use of a nail nipper and/or dremel-type grinder dresser, to a more viable healthy nail plate or bed tissue 6- 10 nails in total. Silver nitrate was used for any petechial bleeding as necessary. Definitive antifungal treatment options, both pharmaceutical and surgical, have been reviewed and discussed with the patient. The patient solely prefers the use of intermittent/as needed professional debridement services for their nail condition and understands the need for additional periodic treatments to maintain effectiveness in symptomatic relief - 38708.?Keratoma Treatment:?Parring or Cutting of Benign Hyperkeratotic Lesion(s)?(-56) 2-4 Lesions - Due to the at risk nature of the patients medical condition as documented in the exam findings, performance of this keratoderma treatment is medically necessary as its management by an unskilled/untrained nonprofessional would put this patients foot and overall health at risk. Therefore, the benign hyperkeratotic lesions, ( 2 ) in total, locations as stated and described in the exam (?SUB MTH (s),?1,?B/L?,?Plantar,?Heel(s)?,?B/L?), were pared, and/or cut utilizing a sterile 15 blade, tissue nippers, and/or power dremel instrumentation by the physician of record - [id number].? * Procedure Codes:?58332 DEBRI DE NAIL, 6 OR MORE, Modifiers: XS 49227 TRIM SKIN LESIONS, 2 TO 4, Modifiers: XS * Follow Up:?prn * Images: * Sign off status: Completed true * Provider:?Fernando Carrillo DPM Date:?2024 Generated for Ramsey staley/Rubén/Kellyitting on:?09/20/2024 11:54 AM EST History and Physical Notes * [...] at, SUB MTH (s), 1, B/L , Plantar, Heel(s) , B/L Ophthalmology Referral DIABETES EYE EXAM Procedu re Performed:: Yes ?Date of Exam Performed: 05/08/2024 Findings of Diabetic Eye Exam:: no retin opathy Nails NAILS are: Elongated, overg rown, dystrophic, lytic, greater than 3mm thick, discolored and friable with crumbly malodorous subungual debris, TA, T1, T2, T3, T4, T5, T6, T7, T8, T9
--- OUTSIDE RECORDS SUMMARY | 2024-09-20 11:55 | XMS_ITS | Continuity of Care Document ---
Author Organization [place] - [facility], JULIANA Earl 3rd floor Address [address] [place] [address] Care Team Providers Care Scale Reclamation Tender Name Role Phone TRISTAN RESENDEZ Primary Care Provider [phone] Assessment Encounter Date Assessment Date Assessment LastModified by Organization Details LastModified Time 08/30/2024 08/30/2024 Chief complaint: Right subtrochanteric hip fracture HPI: 83-year-old male who was injured and suffered a right subtrochanteric hip fracture. He was taken to surgery on January 16, 2024 for a right hip InterTAN. He is in rehab. He has been touchdown weightbearing. He is here on a stretcher. His is with him. He is on Eliquis for DVT prophylaxis. He would like to head towards home. He notes weakness in the leg. He is progressing in physical therapy. He is starting to do some stairs with a cane. They are looking to do home OT and PT after discharge. His other concern is his left knee. He was previously seen for his bilateral knees and was told he was too heavy for knee replacement. He ultimately went to [facility] for the right knee replacement and has done well with that prior to this fracture. He is interested in doing the left knee replacement as soon as possible. He feels he is slowed by the left knee. He is using bilateral canes most of the time. He used them prior to the accident. He is walking independently. He was feeling rather good and went for an almost quarter mile walk. After that he started to have more pain in the hip. He has also had some discomfort in his left knee. He is planning to winter in [place] starting in August sometime. He is looking forward to this. He plans to stay until November. He has a number of appointments upon return in December. He feels the warmer weather will be conducive to more mobilization. Past medical history: Atrial fibrillation, reflux, COPD, high cholesterol, chronic kidney disease, diabetes, gout, anemia, cardiac stent, right total knee replacement Medications: Allopurinol, Eliquis, Carvedilol, Humalog, Jardiance, Lantus, oxycodone, simvastatin, Trelegy Allergies: Amoxicillin and doxycycline Social history: Non-smoker/nondrink er Family history: No family history of disease Physical exam: 83-year-old male who came into the office with bilateral canes.. He is 5 foot 10 240 pounds. His right hip incisions look good. There is no sign of infection. He is unable to do a straight leg raise. There is no pain about the knee. He moves his toes well. There is no calf tenderness. His incisions look good. He has crepitus in his left knee. X-rays: AP and lateral of the right femur show a reverse obliquity/subtrocha nteric hip fracture. This is held with an InterTAN in a near anatomic position. There is progressive callus formation. It appears the fracture is healed. There is increased consolidation on the lateral spike near the subtrochanteric region. This area is nearly bridged. He has broken the distal locking screw. Assessment: Right hip InterTAN for subtrochanteric fracture and left knee arthritis Plan: I will let him continue weightbearing as tolerated. He can work on quadriceps and abductor strengthening. He uses 2 canes to ambulate prior to the accident. He wants to continue with progress towards the use of 2 canes. He does not want to use a rollator or a walker. He feels that that would be counterproductive to his ultimate goal. He is working on increasing his range. I explained to the him that a realistic goal would be walking well with 2 canes. He has finished physical therapy. I explained to him that he needs to build this injured leg up independently to be the good leg to be prepared for surgery on the left side. He feels that he will have more opportunity to do walking and exercise in [place]. He will follow-up in 6 weeks for reevaluation. This will hopefully be before he goes to [place]. He was given a new prescription for vitamin D. I explained to him that the zoë has some risk of fracture. If he is truly healed around the zoë, it will bear his weight. He will follow-up in December after he returns. He will continue with his Eliquis that helps for DVT prophylaxis in addition to his atrial fibrillation. I will have a discussion with one of the total joint surgeons about the possibility of a left knee replacement in the future. [email or web address] Not available 08/30/2024 17:04:54 Plan of Treatment Reminders Order Date Submit Date Provider Last Modified By Organization Details Last Modified Time Details Appointments RECHECK 15 2024 10:00A M Yobani Rose MD Not available Not available Not available Lab None recorded . Referral None recorded . Procedures None recorded . Surgeries None recorded . Imaging XR, femur, 2 or more view - right [facility], [address] [facility] [address], [address], [place], [address], 09/13/2024 16:06:13 Medication Orders None recorded . Patient TargetsNo targets recorded. Patient InstructionsNo instructions recorded. Reason for Referral None Reported. Problems Name Problem SNOMED Code Status Onset Date Resolution Date Notes Provider Name and Address Organization Details Recorded Time Fracture of neck of femur 3854589 Active 024 Yobani Rose MD [address], [place], [address] , [facility] 04/05/2024 08:47:52 Problem Notes None recorded. Medical Equipment None Reported. Allergies Allergen ID Allergen Name Allergen Category Reaction Reaction Severity Criticality Documentation Date Start Date Code Code System Note Provider Name and Address Organization Details Recorded Time 507418 amoxicill in medicatio n Not available Not available Not available 02/23/2024 723 RxNorm SHAWNA QUINONEZ [facility] 4 10:17:35 [id number] doxycycli ne Not available Not available Not available Not available 02/23/2024 3640 RxNorm SHAWNA huertas [facility] 4 10:17:43 Medications Name Sig Start Date Stop Date Status Note LastModified by Organization Details LastModified Time carvedilol 6.25 mg tablet TAKE 1 TABLET BY MOUTH TWICE A DAY WITH MEALS active Not Available Not Available No t Available torsemide 20 mg tablet TAKE 1 TABLET BY MOUTH TWICE A DAY active Not Available Not Available No t Available clindamycin HCl 300 mg capsule TAKE 2 CAPSULES BY MOUTH 1 HOUR PRIOR TO DENTAL APPOINTME NT. 05/17 completed Not Available Not Available Not Available cefpodoxime 200 mg tablet TAKE 1 TABLET BY MOUTH EVERY DAY FOR 2 DAYS 02/22 completed Not Available Not Available Not Available FreeStyle Lancets 28 gauge USE TO CHECK BLOOD GLUCOSE 3X A DAY DX E11.9 02/22 completed Not Available Not Available Not Available phenazopyri dine 200 mg tablet TAKE 1 TABLET BY MOUTH THREE TIMES A DAY AFTER MEALS FOR 2 DAYS 02/22 completed Not Available Not Available Not Available ciprofloxac in 500 mg tablet TAKE 1 TABLET BY MOUTH EVERY 12 HOURS 02/22 completed Not Available Not Available Not Available sulfamethox azole 800 mg-trimetho prim 160 mg tablet TAKE 1 TABLET BY MOUTH TWICE A DAY FOR 2 WEEKS active Not Available Not Available No t Available simvastatin 40 mg tablet TAKE 1 TABLET BY MOUTH 1 TIME EACH DAY IN THE EVENING. active Not Available Not Available No t Available carvedilol 3.125 mg tablet TAKE 1 TABLET BY MOUTH TWICE A DAY active Not Available Not Available No t Available ketorolac 0.5 % eye drops INSTILL 1 DROP INTO RIGHT EYE 4 TIMES A DAY 02/22 completed Not Available Not Available Not Available prednisolon e acetate 1 % eye drops,suspe nsion INSTILL 1 DROP INTO RIGHT EYE 4 TIMES A DAY 02/22 completed Not Available Not Available Not Available tamsulosin 0.4 mg capsule 0.4 MG ORALLY BEDTIME FOR 90 DAYS active Not Available Not Available No t Available clotrimazol e-betametha sone 1 %-0.05 % topical cream APPLY EXTERNALL Y TWICE A DAY FOR 30 DAYS active Not Available Not Available No t Available nitroglycer in 0.[address] 1 TABLET UNDER THE TONGUE EVERY 5 MINUTES NEEDED FOR CHEST PAIN. active Not Available Not Available No t Available montelukast 10 mg tablet TAKE 1 TABLET BY MOUTH 1 TIME EACH DAY IN THE EVENING. active Not Available Not Available No t Available allopurinol 300 mg tablet TAKE 1 TABLET BY MOUTH 1 TIME EACH DAY. active Not Available Not Available No t Available levofloxaci n 500 mg tablet TAKE 1 TABLET BY MOUTH EVERY DAY FOR 2 WEEKS active Not Available Not Available No t Available albuterol sulfate HFA 90 mcg/actuati on aerosol inhaler INHALE 2 PUFFS BY MOUTH EVERY 4 TO 6 HOURS NEEDED active Not Available Not Available No t Available finasteride 5 mg tablet TAKE 1 TABLET BY MOUTH EVERY DAY active Not Available Not Available No t Available oxycodone 5 mg tablet TAKE 1 TABLET BY MOUTH TWICE A DAY NEEDED FOR 15 DAYS active Not Available Not Available No t Available moxifloxaci n 0.5 % eye drops PLACE 1 DROP INTO THE RIGHT EYE 4 TIMES A DAY 02/22 completed Not Available Not Available Not Available oxycodone active Not Available Not Samantha ilable Not Available BD Ultra-Fine Short Pen Needle 31 gauge x 5/16 INJECT INSULIN 4 TIMES A DAY DIRECTED 02/22 completed Not Available Not Available Not Available FreeStyle Lite Meter kit USE TO CHECK BLOOD GLUCOSE 3X DAY DX E 11.9 02/22 completed Not Available Not Available Not Available FreeStyle Lite Strips USE DIRECTED TO TEST BLOOD SUGAR 3 TIMES DAILY 05/17 completed Not Available Not Available Not Available cholecalcif karen (vitamin D3) 1,250 mcg (50,000 unit) capsule Take 1 capsule every week by oral route for 84 days. 2024 active Not Available Not Available Not Avai lable Lantus Solostar U-100 Insulin active Not Available Not Available Not Available Eliquis 2.5 mg tablet TAKE 1 TABLET BY MOUTH TWICE A DAY active Not Available Not Available No t Available Jardiance 10 mg tablet TAKE 1 TABLET BY MOUTH IN THE MORNING active Not Available Not Available No t Available Jardiance 05/17 completed Not Available Not Available Not Available Trulicity 1.5 mg/0.5 mL subcutaneou s pen injector INJECT 0.5 ML SUBCUTANE OUSLY EVERY WEEK X 90 DAYS active Not Available Not Available No t Available Trulicity 0.75 mg/0.5 mL subcutaneou s pen injector INJECT THE CONTENTS OF 1 PEN SUBCUTANE OUSLY WEEKLY DIRECTED, ROTATE INJECTION SITE active Not Available Not Available No t Available Entresto 49 mg-51 mg tablet TAKE 1 TABLET BY MOUTH TWICE A DAY active Not Available Not Available No t Available Entresto 24 mg-26 mg tablet TAKE 1 TABLET BY MOUTH TWICE A DAY FOR 90 DAYS active Not Available Not Available No t Available Basaglar KwikPen U-100 Insulin 100 unit/mL (3 mL) subcutaneou s INJECT 50 UNITS SUBCUTANE OUSLY ONCE DAILY IN THE EVENING active Not Available Not Available No t Available Humalog Pascual KwikPen (U-100) 100 unit/mL subcutaneou s half-unit pen Inject by subcutane ous route. 05/17 completed Not Available Not Available Not Available BD Ultra-Fine Micro Pen Needle 32 gauge x 1/4 INJECT INSULIN 6 TIMES DAILY active Not Available Not Available No t Available Trelegy Ellipta 100 mcg-62.5 mcg-25 mcg powder for inhalation INHALE 1 PUFF BY MOUTH EVERY DAY AT THE SAME TIME active Not Available Not Available No t Available Admelog SoloStar U-100 Insulin lispro 100 unit/mL subcutaneou s pen MAX DAILY DOSE 20 UNITS, USE 3 TIMES PER DAY WITH MEAL FOLLOWING SCALE active Not Available Not Available No t Available Gvoke HypoPen 1-Pack 1 mg/0.2 mL subcutaneou s auto-inject or INJECT CONTENTS OF 1 PEN UNDER SKIN ONCE FOR HYPOGLYCE [facility] , IF BG<60+[facility] ONSCIOUS. CALL 911 active Not Available Not Available No t Available FreeStyle Teresa 2 [place] USE TO SCAN FREESTYLE TERESA 2 SENSORS TO MONITOR BLOOD GLUCOSE 05/17 completed Not Available Not Available Not Available Trelegy Ellipta 200 mcg-62.5 mcg-25 mcg powder for inhalation INHALE 1 PUFF BY MOUTH ONCE A DAY active Not Available Not Available No t Available Paxlovid 300 mg (150 mg x 2)-100 mg tablets in a dose pack 02/22 completed Not Available Not Available Not Available Soaanz 40 mg tablet TAKE 1 AND 1/2 TABLETS BY MOUTH EVERY MORNING AND EVERY EVENING active Not Available Not Available No t Available Vitals Date Recorded Body height Body mass index (BMI) Body weight Provider Name and Address Organization Details Last Updated DateTime 08/30/2024 177.8 cm 34.4 kg/m2 657159.17 g prudence lawrence [place] - [facility] [facility] 08/30/2024 10:12:59 Social History None recorded. Functional Status None recorded. Mental Status None recorded. Family History Nothing Reported. Medical History No medical history recorded. Past Encounters Encounter ID Performer Location Encounter Start Date Encounter Closed Date Diagnosis/Indication Diagnosis SNOMED-CT Code Diagnosis ICD10 Code Diagnosis Note [id number] MD JULIANA Reina 3rd floor [address] [place] [address] 08/30/2024 10:00:51 09/13/2024 16:06:13 Fracture of neck of femur 9139638 S72.001D Health Concerns Section Related Observation LastModified by Organization Detai ls LastModified Time None Recorded Concern Status LastModified by Organization Details LastModified Time None Recorded Payers Encounter Date Sequence Insurance Name Policy Number Policy Morel Covered Member ID Morel Member ID Guarantor Name 08/30/2024 1 [place] [employer] Hardeep Barker [id number] Hardeep Barker 08/30/2024 2 [facility] [id number] Hardeep Barker [id number] Hardeep Barker
--- OUTSIDE RECORDS SUMMARY | 2024-09-20 11:55 | XMS_ITS | Encounter Summary ---
Author Organization [facility] Address [phone] [facility] [email or web address] [address] Care Team Providers Care Artificial Breeding Technician Name Role Phone Raheem Pettit MD Primary Care Provider Andrew Christopher MD Unavailable Patti Schilling MD Unavailable [phone] Epi Metzger MD Unavailable [phone] Otoniel Reyes MD Unavailable [phone] Encounter Details Date Type Department Care Team (Late st Contact Info) Description 11/20/2017 Procedure Pass [facility] [address] [place] [address] Social History Tobacco Use Types Packs/Day Years Used Date Smoking Tobacco: Former Cigarettes 3 20 1 965 - 1984 Smokeless Tobacco: Never Alcohol Use Standard Drinks/Week Comments Yes 0 (1 standard drink = 0.6 oz pur e alcohol) Sex and Gender Information Value Date Recorded Sex Assigned at Male 06/12/2020 12:53 PM EDT Gender Identity Male 06/12/2020 12:53 PM EDT Sexual Orientation Straight 09/01/2020 3: 10 PM EST documented as of this encounter Plan of Treatment Upcoming Encounters Date Type Department Care Team (Late st Contact Info) Description 05/03/2023 Procedure Pass [facility] [address] [place] [address] 08/02/2023 Procedure Pass [facility] [address] [place] [address] 11/01/2023 Procedure Pass [facility] [address] [place] [address] 04/30/2024 Procedure Pass [facility] [address] [place] [address] 05/29/2024 Procedure Pass [facility] [address] [place] [address] 08/01/2024 Procedure Pass [facility] [address] [place] [address] 08/01/2024 Procedure Pass [facility] [address] [place] [address] 10/30/2024 1:00 PM EST Appointment [facility] [address] [place] [address] Osman Irene MD, MPH [address] [place] [id number] [email or web address] 01/06/2025 10:00 AM EDT Appointment [address] [address] Igor Florian MD [address] [place] [address] [email or web address] 01/10/2025 12:15 PM EDT Office Visit [facility] [address] [place] [address] Franco Melendez MD, PhD [address] [place] [address] [place] [phone] [email or web address] 01/23/2025 11:40 AM EDT Office Visit [facility] [address] [place] [address] Igor Florian MD [address] [facility] [address] [place] [address] [email or web address] 01/29/2025 11:45 AM EDT Appointment [facility] [address] [facility] [address] [address] Osman Irene MD, MPH [facility] [place] [place] [id number] [email or web address] 04/30/2025 12:30 PM EDT Appointment [facility] [address] [facility] [address] [address] Osman Irene MD, MPH [address] [place] [address] [email or web address] 05/21/2025 1:20 PM EDT Office Visit [facility] [address] [address] Otoniel Bell MD [address] [place] [phone] [email or web address] 06/04/2025 3:00 PM EDT Appointment [facility] Card[facility] EP [address] [facility] [address] Osman Irene MD, MPH [address] [place] [address] [place] [address] [email or web address] 06/04/2025 3:30 PM EDT Office Visit [facility]ia [facility] [address] [facility] [address] [place] [place] [address] Osman Irene MD, MPH [address] [place] [address] [address] [place] [address] [email or web address] documented as of this encounter Visit Diagnoses Not on filedocumented in this encounter Additional Health Concerns Infection Onset Date Last Indicated Resolved Time CoV-Exposed Comment:Exposed during encounter with [facility] at [facility] 09/22/2021 09/28/2021 10/03/2021 2:[address] documented as of this encounter Care Teams Artificial Breeding Technician Relationship Specialty Start Date End Date Raheem Pettit MD [address] [address] PCP - General Internal Medicine 05/17/17 Andrew Christopher MD [address] [place] [phone] Cardiology 06/21/17 Patti Schilling MD [address] [place] [phone] Pulmonary Disease 06/21/17 Epi Metzger MD [address] [place] [phone] Nephrology 06/21/17 Otoniel Reyes MD [address] [place] [phone] Cardiology 09/15/21 documented as of this encounter Additional Source Comments The information contained in this document represents components of the legal health record. It is not the complete legal health record.[facility]
--- OUTSIDE RECORDS SUMMARY | 2024-09-20 11:55 | XMS_ITS | Encounter Summary ---
Author Organization [employer] [facility] Address [phone] [facility] [place] [address] Care Team Providers Care Import Export Coordinator Name Role Phone Raheem ePttit MD Primary Care Provider [phone] Andrew Christopher MD Unavailable [phone] Patti Schilling MD Unavailable [phone] Epi Metzger MD Unavailable Otoniel Reyes MD Unavailable [phone] Encounter Details Date Type Department Care Team (Latest Contact Info) Description 01/02/2018 Ancillary Orders [facility] Department of Orthopaedic Surgery, Arthroplasty [facility] [address] [place] [address] Arjun Barnard MD, PhD 55 [facility] [address] [place] [address] [email or web address] Presence of left artificial knee joint Social History Tobacco Use Types Packs/Day Years Used Date Smoking Tobacco: Former Cigarettes 3 20 1 965 - 1985 Smokeless Tobacco: Never Alcohol Use Standard Drinks/Week [...] st Contact Info) Description 05/03/2023 Procedure Pass [facility] Cardiology Division [address] [address] [place] [address] 08/02/2023 Procedure Pass [facility] Cardiology Division [address] [place] [address] [place] [address] 11/01/2023 Procedure Pass [facility] Cardiology Division [address] [place] Eduardo [address] [place] [address] 04/30/2024 Procedure Pass [facility] Cardiology Division [address] [place] [address] [place] [address] 05/29/2024 Procedure Pass [facility] Cardiology Division [address] [place] [address] [place] [address] 08/01/2024 Procedure Pass [facility] Cardiology Division [address] [place] [address] [place] [address] 08/01/2024 Procedure Pass [facility] Cardiology Division [address] [place] [address] [place] [address] 10/30/2024 1:00 PM EST Appointment [facility] Cardiology Division [address] [place] [address] [place] [address] Osman Irene MD, MPH 55 [facility] [address] [place] [address] [email or web address] 01/06/2025 10:00 AM EDT Appointment [address] [address] Igor Florian MD [address] [facility] [address] BLK [address] [place] [address] [email or web address] 01/10/2025 12:15 PM EDT Office Visit [facility] Cardiology [address] [place] [address] [place] [address] Franco Melendez MD, PhD [address] [address] [email or web address] 01/23/2025 11:40 AM EDT Office Visit [facility] 55 [facility] 5th [place] [address] Igor Florian MD 55 [facility] 4 [place] [address] [email or web address] 01/29/2025 11:45 AM EDT Appointment [facility] Cardiology Division 55 [facility] [address] Osman Irene MD, MPH [address] [place] [address] [email or web address] 04/30/2025 12:30 PM EDT Appointment [facility] Cardiology Division [facility]/[address] [address] Osman Irene MD, MPH [address] [place] [address] [email or web address] 05/21/2025 1:20 PM EDT Office Visit [facility] [address] [address] Otoniel Bell MD [address] [place] [address] [email or web address] 06/04/2025 3:00 PM EDT Appointment [facility] Cardiac EP [address] [address] Osman Irene MD, MPH [address] [address] [email or web address] 06/04/2025 3:30 PM EDT Office Visit [facility] Cardiac Arrhythmia Service 55 [facility] [address] [place] [address] Osman Irene MD, MPH 55 [facility] 5[address]AW [address] [place] [address] [email or web address] documented as of this encounter Results * XR KNEE 4 OR MORE VIEWS (RIGHT) (01/02/2018 1:20 PM EDT) Anatomical Region Laterality Modality Knee Right Radiographic Yuli ging 01/02/2018 2:14 PM EDT Impressions 01/02/2018 4:50 PM EDT No evidence of right total knee arthroplasty hardware complication. Severe left knee osteoarthritis predominantly in the medial compartment. Narrative 01/02/2018 4:50 PM EDT XR KNEE 4 OR MORE VIEWS (RIGHT) COMPARISON: Right XR KNEE 1-2 VIEWS (RIGHT) 11/20/2017. ? FINDINGS: Left knee: There is severe medial compartment joint space narrowing, subchondral sclerosis and osteophytosis. Right knee: Right total knee prosthesis is stable in alignment, without evidence of hardware fracture or perihardware lucency. Procedure Note Leighann Ma MD - 01/02/2018 XR KNEE 4 OR MORE VIEWS (RIGHT) COMPARISON: Right XR KNEE 1-2 VIEWS (RIGHT) 11/20/2017. FINDINGS: Left knee: There is severe medial compartment joint space narrowing, subchondralsclerosis and osteophytosis. Right knee: Right total knee prosthesis is stable in alignment, withoutevidence of hardware fracture or perihardware lucency. IMPRESSION: No evidence of right total knee arthroplasty hardware complication. Severe left knee osteoarthritis predominantly in the medial compartment. Arjun Barnard MD, PhD IMG XR LOWER EXTR EMITY documented in this encounter Visit Diagnoses Diagnosis Presence of left artificial knee joint Presence of left artificial knee joint documented in this encounter Additional Health Concerns Infection Onset Date Last Indicated Resolved Time CoV-Exposed Comment:Exposed during encounter with HCW at [facility] 09/22/2021 09/28/2021 10/03/2021 2:[address] documented as of this encounter Care Teams Import Export Coordinator Relationship Specialty Start Date End Date Raheem Pettit MD [address] [place] [address] PCP - General Internal Medicine 05/17/17 Andrew Christopher MD [address] [place] [address] Cardiology 06/21/17 Patti Schilling MD [address] [place] [address] Pulmonary Disease 06/21/17 Epi Metzger MD [address] [place] [address] Nephrology 06/21/17 Otoniel Reyes MD [address] [place] [address] Cardiology 09/15/21 documented as of this encounter Additional Source Comments The information contained in this document represents components of the legal health record. It is not the complete legal health record.[facility]
--- OUTSIDE RECORDS SUMMARY | 2024-09-20 11:55 | XMS_ITS | Encounter Summary ---
Author Organization [employer] [facility] Address [phone] [facility] [place] [address] Care Team Providers Care Splicing Technician Name Role Phone Raheem Pettit MD Primary Care Provider Andrew Christopher MD Unavailable Patti Schilling MD Unavailable Epi Metzger MD Unavailable [phone] Otoniel Reyes MD Unavailable [phone] Encounter Details Date Type Department Care Team (Late st Contact Info) Description 04/13/2023 Procedure Pass [facility] [place] [address] [place] [place] [address] Social History Tobacco Use Types Packs/Day Years Used Date Smoking Tobacco: Former Cigarettes 3 20 1 965 - 1985 Smokeless Tobacco: Never Alcohol Use Standard Drinks/Week Comments Not Currently 0 (1 standard drink = 0.6 oz pure alcohol) in 1970-80's many drinks/ day Education Answer Date Recorded Are you interested in more education? Not on romel e 12/23/2022 Are you concerned about learning? Not on file 12/23/2022 No 12/23/2022 No 12/23/2022 Digital Access Answer Date Recorded No 01/19/2023 No 01/19/2023 Reliable internet access at home? Not on file 01/19/2023 Device with a working camera? Not on file Sex and Gender Information Value Date Recorded Sex Assigned at Male 06/12/2020 12:53 PM EDT Gender Identity Male 06/12/2020 12:53 PM EDT Sexual Orientation Straight 09/01/2020 3: 10 PM EST documented as of this encounter Plan of Treatment Upcoming Encounters Date Type Department Care Team (Late st Contact Info) Description 05/03/2023 Procedure Pass [facility] [place] [address]/[place] Edu[address] [place] [address] 08/02/2023 Procedure Pass [facility] [place] [place] [address] [place] [address] [place] [address] 11/01/2023 Procedure Pass [facility] [place] [place] [address] [place] [address] [place] [address] 04/30/2024 Procedure Pass [facility] [place] [place] [address] [place] [address] [place] [address] 05/29/2024 Procedure Pass [facility] [place] [address] [place] [address] [place] [address] 08/01/2024 Procedure Pass [facility] [place] [address] [address] [place] [address] 08/01/2024 Procedure Pass [facility] [place] [address] [address] [place] [address] 10/30/2024 1:00 PM EST Appointment [facility] [place] [address] [address] [place] [address] Osman Irene MD, MPH 55 [facility] [place] [address] [place] [address] [email or web address] 01/06/2025 10:00 AM EDT Appointment [address] [address] Igor Florian MD 55 [facility] BLK 4 [place] [address] [email or web address] 01/10/2025 12:15 PM EDT Office Visit [facility] Cardiology [address] [place] [address] [place] [address] Franco Melendez MD, PhD 55 [facility] [address] [address] [email or web address] 01/23/2025 11:40 AM EDT Office Visit [facility] [address] [facility] [address] [facility] 5th [place] [address] Igor Florian MD 55 [facility] 4 [place] [address] [email or web address] 01/29/2025 11:45 AM EDT Appointment [facility] [place] [address] [facility] [address] Cummings/[address] [address] Osman Irene MD, MPH [address] [place] [address] [email or web address] 04/30/2025 12:30 PM EDT Appointment [facility] [address] [facility] [address] Cumm[address] [address] Osman Irene MD, MPH [address] [place] [address] [email or web address] 05/21/2025 1:20 PM EDT Office Visit [facility] [address] [address] Otoniel Bell MD [address] [place] [address] [email or web address] 06/04/2025 3:00 PM EDT Appointment [facility] Card[place] [address] [facility] [address] [address] Osman Irene MD, MPH [address] [address] 06/04/2025 3:30 PM EDT Office Visit [facility] Ar[facility]hythmia Service [address] [address] Osman Irene MD, MPH [address] [place] [address] [email or web address] documented as of this encounter Visit Diagnoses Not on filedocumented in this encounter Care Teams Splicing Technician Relationship Specialty Start Date End Date Raheem Pettit MD [address] [place] [address] PCP - General Internal Medicine 05/17/17 Andrew Christopher MD [address] [place] [address] Cardiology 06/21/17 Patti Schilling MD [address] [place] [address] Pulmonary Disease 06/21/17 Epi Metzger MD [address] [place] [address] Nephrology 06/21/17 Otoniel Reyes MD [address] [address] Cardiology 09/15/21 documented as of this encounter Additional Source Comments The information contained in this document represents components of the legal health record. It is not the complete legal health record.[facility]
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
--- OUTSIDE RECORDS SUMMARY | 2024-09-20 11:55 | XMS_ITS ---
Author Organization [facility] Address [address] [place] [address] Care Team Providers Care Supervisor Wrapping Room Name Role Phone TRISTAN RESENDEZ Primary Care Provider REASON FOR VISIT VNA update Encounters Encounter Location Date Provider Diagnosis [facility] [address] [facility] [address] 09/02/2024 TRISTAN RESENDEZ PLAN OF TREATMENT Next Appt Details Provider Name:TRISTAN RESENDEZ, 01/13/2025 11:45:00 AM, [address], [facility] [place], [phone], Progress Notes * CHELSIEHardeepDOB: 2 (84 yo M)Acc No.[id number]:09/02/2024 Patient:??Hardeep HOLGUIN :1940?Age:84 Y?Sex:Osiris roberson Address:[address], [place] [address] * true * Date:??
--- OUTSIDE RECORDS SUMMARY | 2024-09-20 11:55 | XMS_ITS | Encounter Summary ---
Author Organization [facility] Address [phone] [facility] [place] [address] Care Team Providers Care International Sourcing Manager Name Role Phone Raheem Pettit MD Primary Care Provider [phone] Andrew Christopher MD Unavailable Patti Schilling MD Unavailable Epi Metzger MD Unavailable Otoniel Reyes MD Unavailable [phone] Encounter Details Date Type Department Care Team (Late st Contact Info) Description 07/10/[address] [facility] PERIOPERATIVE DEPT [address] [place] [phone] Social History Tobacco Use Types Packs/Day Years [...] st Contact Info) Description 05/03/[address] [facility] Cardiology Division [address] [place] Eduardo [address] [place] [address] 08/02/[address] [facility] Cardiology Division [address] [place] Eduardo [address] [place] [address] 11/01/[address] [facility] Cardiology Division [address] [place] Eduardo [address] [place] [address] 04/30/[address] [facility] Cardiology Division [address] [place] Eduardo [address] [place] [address] 05/29/[address] [facility] Cardiology Division [address] [place] Eduardo [address] [place] [address] 08/01/[address] [facility] Cardiology Division [address] [place] Eduardo [address] [place] [address] 08/01/[address] [facility] Cardiology Division [address] [place] Eduardo [address] [place] [address] 10/30/2024 1:[address] [facility] Cardiology Division [address] [place] Eduardo [address] [place] [address] Osman Irene MD, MPH 55 [facility] [address] [place] [address] [email or web address] 01/06/2025 10:00 AM EDT Appointment [address] [address] Igor Florian MD [address] [facility] [address] BLK [address] [place] [address] [email or web address] 01/10/2025 12:15 PM EDT Office Visit [facility] Cardiology [address] [place] [address] [place] [address] Franco Melendez MD, PhD [facility] [address] [address] [email or web address] 01/23/2025 11:40 AM EDT Office Visit [facility] [address] [place] [address] Igor Florian MD [facility] 4 [place] [address] [email or web address] 01/29/2025 11:[address] [facility] Cardiology Division [address] [facility] [address] [facility] [address] [place] [address] Osman Irene MD, MPH [address] [place] [address] [email or web address] 04/30/2025 12:[address] [facility] Cardiology Division [address] [facility] [facility] [address] Cumm[place] [address] [address] Osman Irene MD, MPH [address] [place] [address] [email or web address] 05/21/2025 1:20 PM EDT Office Visit [facility] [address] [address] Otoniel Bell MD [address] [place] [address] [email or web address] 06/04/2025 3:[address] [facility] Cardiac EP [address] [facility] [address] [facility] [address] [place] [address] [place] [address] Osman Irene MD, MPH [address] [address] 06/04/2025 3:30 PM EDT Office Visit [facility] Cardiac Arrhythmia Service [address] [address] Osman Irene MD, MPH [address] [place] [address] [email or web address] documented as of this encounter Visit Diagnoses Not on filedocumented in this encounter Care Teams International Sourcing Manager Relationship Specialty Start Date End Date Raheem Pettit MD [address] [place] [address] PCP - General Internal Medicine 05/17/17 Andrew Christopher MD [address] [place] [address] Cardiology 06/21/17 Patti Schilling MD [address] [place] [address] Pulmonary Disease 06/21/17 Epi Metzger MD [address] [place] [address] Nephrology 06/21/17 Otoniel Reyes MD [address] [address] Cardiology 09/15/21 documented as of this encounter Additional Source Comments The information contained in this document represents components of the legal health record. It is not the complete legal health record.[facility]
--- OUTSIDE RECORDS SUMMARY | 2024-09-20 11:55 | XMS_ITS | Encounter Summary ---
Author Organization [facility] Address [phone] [facility] [place] [address] Care Team Providers Care Remedial Masseur Name Role Phone William Garcia MD Primary Care Provider [phone] Raheem Pettit MD Primary Care Provider [phone] Andrew Christopher MD Unavailable [phone] Patti Schilling MD Unavailable Epi Metzger MD Unavailable [phone] Otoniel Reyes MD Unavailable [phone] Encounter Details Date Type Department Care Team (Latest Contact Info) Description 05/09/2017 Ancillary Orders [facility] Department of Orthopaedic Surgery, Arthroplasty Service [address] [address] Arjun Barnard MD, PhD 55 [facility] [address] [place] [address] [email or web address] Right knee pain, unspecified chronicity; Left knee pain, unspecified chronicity Social History Tobacco Use Types Packs/Day Years Used Date Smoking Tobacco: Former Alcohol Use Standard Drinks/Week Comments Not Asked 0 (1 standard drink = 0.6 oz pur e alcohol) Sex and Gender Information Value Date Recorded Sex Assigned at Male 06/12/2020 12:53 PM EDT Gender Identity Male 06/12/2020 12:53 PM EDT Sexual Orientation Straight 09/01/2020 3: 10 PM EST documented as of this encounter Plan of Treatment Upcoming Encounters Date Type Department Care Team (Late st Contact Info) Description 05/03/2023 Procedure Pass [facility] Cardiology Division [address] Eduardo [address] [place] [address] 08/02/2023 Procedure Pass [facility] Cardiology Division [address] [place] Eduardo [address] [place] [address] 11/01/2023 Procedure Pass [facility] Cardiology Division [address] [place] Edu[address] [place] [address] 04/30/2024 Procedure Pass [facility] Cardiology Division [address] [place] Eduardo [address] [place] [address] 05/29/2024 Procedure Pass [facility] Cardiology Division [address] [place] Edu[address] [place] [address] 08/01/2024 Procedure Pass [facility] Cardiology Division [address] Edu[address] [place] [address] 08/01/2024 Procedure Pass [facility] Cardiology Division [address] [place] Eduardo [address] [place] [address] 10/30/2024 1:00 PM EST Appointment [facility] Cardiology Division [address] Eduardo [address] [place] [address] Osman Irene MD, MPH [address] [facility] [facility] 5B [place] [address] [email or web address] 01/06/2025 10:00 AM EDT Appointment [address] [address] Igor Florian MD [address] BLK 4 [place] [address] [email or web address] 01/10/2025 12:15 PM EDT Office Visit [facility] Cardiology [address] [place] [address] Franco Melendez MD, PhD [address] [facility] [address] [address] [email or web address] 01/23/2025 11:40 AM EDT Office Visit [facility] [address] [place] [address] Igor Florian MD 55 [facility] BLK 4 [place] [address] [email or web address] 01/29/2025 11:45 AM EDT Appointment [facility] Cardiology Division [address] [facility] [address] Cummings/[address] [address] Osman Irene MD, MPH 55 [facility] [address] [address] [email or web address] 04/30/2025 12:30 PM EDT Appointment [facility] Cardiology Division [address] [facility] [address] Cumm[place] [address] Osman Irene MD, MPH [address] [place] [address] [email or web address] 05/21/2025 1:20 PM EDT Office Visit [facility] [address] [address] Otoniel Bell MD [address] [place] [address] [email or web address] 06/04/2025 3:00 PM EDT Appointment [facility] Cardiac EP [address] [facility] [address] [place] [place] [address] Osman Irene MD, MPH 55 [facility] [address] [place] [address] [email or web address] 06/04/2025 3:30 PM EDT Office Visit [facility] Cardiac Arrhythmia Service [address] [address] Osman Irene MD, MPH 55 [facility] [address] [place] [address] [email or web address] documented as of this encounter Results * XR KNEE 4 OR MORE VIEWS (LEFT) (05/10/2017 1:03 PM EDT) Anatomical Region Laterality Modality Knee Left Radiographic Yuli ging 05/10/2017 2:02 PM EDT Impressions 05/10/2017 2:03 PM EDT Bilateral severe medial compartment degenerative changes. Narrative 05/10/2017 2:03 PM EDT XR KNEE 4 OR MORE VIEWS (RIGHT), XR KNEE 4 OR MORE VIEWS (LEFT) COMPARISON: XR KNEE 4 OR MORE VIEWS (BILATERAL) 05/11/2016. ? FINDINGS: Both knees demonstrate severe medial compartment degenerative changes with varus alignment. No fracture or joint effusion is present. There is likely an intra-articular loose body in the LEFT knee. Procedure Note Jorge Bernal MD - 05/10/2017 XR KNEE 4 OR MORE VIEWS (RIGHT), XR KNEE 4 OR MORE VIEWS (LEFT) COMPARISON: XR KNEE 4 OR MORE VIEWS (BILATERAL) 05/11/2016. FINDINGS: Both knees demonstrate severe medial compartment degenerative changes withvarus alignment. No fracture or joint effusion is present. There is likely an intra-articular loose body in the LEFT knee. IMPRESSION: Bilateral severe medial compartment degenerative changes. Arjun Barnard MD, PhD IMG XR LOWER EXTR EMITY documented in this encounter Visit Diagnoses Diagnosis Right knee pain, unspecified chronicity Left knee pain, unspecified chronicity Right knee pain, unspecified chronicity Left knee pain, unspecified chronicity documented in this encounter Additional Health Concerns Infection Onset Date Last Indicated Resolved Time CoV-Exposed Comment:Exposed during encounter with HCW at [facility] 09/22/2021 09/28/2021 10/03/2021 2:[address] documented as of this encounter Care Teams Remedial Masseur Relationship Specialty Start Date End Date William Garcia MD [address] [place] [address] PCP - General Internal Medicine 05/06/16 05/16/17 Raheem Pettit MD [address] [place] [address] PCP - General Internal Medicine 05/17/17 Andrew Christopher MD [address] [place] [address] Cardiology 06/21/17 Patti Schilling MD [address] [place] [address] Pulmonary Disease 06/21/17 Epi Metzger MD [address] [place] [address] Nephrology 06/21/17 Otoniel Reyes MD [address] [address] Cardiology 09/15/21 documented as of this encounter Additional Source Comments The information contained in this document represents components of the legal health record. It is not the complete legal health record.[facility]
--- OUTSIDE RECORDS SUMMARY | 2024-09-20 11:56 | XMS_ITS | Encounter Summary ---
Author Organization [facility] Address [phone] [facility] [place] [address] Care Team Providers Care Coffee Attendant Name Role Phone Raheem Pettit MD Primary Care Provider [phone] Andrew Christopher MD Unavailable Patti Schilling MD Unavailable [phone] Epi Metzger MD Unavailable [phone] Otoniel Reyes MD Unavailable Encounter Details Date Type Department Care Team (Late st Contact Info) Description 07/06/2017 Procedure Pass [facility] PERIOPERATIVE DEPT 55 [place] [phone] Social History Tobacco Use Types Packs/Day Years [...] st Contact Info) Description 05/03/2023 Procedure Pass [facility] Cardiology Division [address] [place] Eduardo [address] [place] [address] 08/02/2023 Procedure Pass [facility] Cardiology Division [address] [place] Eduardo [address] [place] [address] 11/01/2023 Procedure Pass [facility] Cardiology Division [address] [place] Edu[address] [place] [address] 04/30/2024 Procedure Pass [facility] Cardiology Division [address] [place] [address] [place] [address] 05/29/2024 Procedure Pass [facility] Cardiology Division [address] [place] Eduardo [address] [place] [address] 08/01/2024 Procedure Pass [facility] Cardiology Division [address] [place] Edu[address] [place] [address] 08/01/2024 Procedure Pass [facility] Cardiology Division [address] [place] Edu[address] [place] [address] 10/30/2024 1:00 PM EST Appointment [facility] Cardiology Division [address] [place] Edu[address] [place] [address] Osman Irene MD, MPH [address] [place] [place] [address] [email or web address] 01/06/2025 10:00 AM EDT Appointment [address] [address] Igor Florian MD [address] BLK 4 [place] [address] [email or web address] 01/10/2025 12:15 PM EDT Office Visit [facility] Cardiology [address] [place] [address] Franco Melendez MD, PhD [address] [place] [place] [address] [email or web address] 01/23/2025 11:40 AM EDT Office Visit [facility] [address] 5[address] [place] [address] Igor Florian MD 55 [facility] BLK 4 [place] [address] [email or web address] 01/29/2025 11:45 AM EDT Appointment [facility] Cardiology Division [address] [facility] [address] Cummings/[address] [address] Osman Irene MD, MPH 55 [facility] [place] [address] [place] [address] [email or web address] 04/30/2025 12:30 PM EDT Appointment [facility] Cardiology Division [address] [facility] [address] [place] [address] Osman Irene MD, MPH [address] [place] [address] [email or web address] 05/21/2025 1:20 PM EDT Office Visit [facility] [address] [address] Otoniel Bell MD [address] [place] [address] [email or web address] 06/04/2025 3:00 PM EDT Appointment [facility] Cardiac EP [address] [facility] [address] [address] Osman Irene MD, MPH [address] [place] [address] [place] [address] [email or web address] 06/04/2025 3:30 PM EDT Office Visit [facility] Cardiac Arrhythmia Service [address] [facility] [address] [place] [address] [place] [address] Osman Irene MD, MPH [address] [place] [address] 5[address]AW [address] [place] [address] [email or web address] documented as of this encounter Visit Diagnoses Not on filedocumented in this encounter Additional Health Concerns Infection Onset Date Last Indicated Resolved Time CoV-Exposed Comment:Exposed during encounter with HCW at [facility] 09/22/2021 09/28/2021 10/03/2021 2:[address] documented as of this encounter Care Teams Coffee Attendant Relationship Specialty Start Date End Date Raheem Pettit MD [address] [address] PCP - General Internal Medicine 05/17/17 Andrew Christopher MD [address] [place] [address] Cardiology 06/21/17 Patti Schilling MD [address] [place] [address] Pulmonary Disease 06/21/17 Epi Metzger MD [address] [place] [address] Nephrology 06/21/17 Otoniel Reyes MD [address] [place] [address] Cardiology 09/15/21 documented as of this encounter Additional Source Comments The information contained in this document represents components of the legal health record. It is not the complete legal health record.[facility]
--- OUTSIDE RECORDS SUMMARY | 2024-09-20 11:56 | XMS_ITS | Encounter Summary ---
Author Organization [employer] [facility] Address [phone] [facility] [place] [address] Care Team Providers Care Telecommunications Project Manager Name Role Phone Raheem Pettit MD Primary Care Provider [phone] Andrew Christopher MD Unavailable Patti Schilling MD Unavailable Epi Metzger MD Unavailable Otoniel Reyes MD Unavailable Encounter Details Date Type Department Care Team (Late st Contact Info) Description 09/22/2021 Procedure Pass [facility] [place] PERIOP DEPT [address] [place] [address] Social History Tobacco Use Types Packs/Day Years Used Date Smoking Tobacco: Former Cigarettes 3 20 1 965 - 1984 Smokeless Tobacco: Never Alcohol Use Standard Drinks/Week Comments Not Currently 0 (1 standard drink = 0.6 oz pure alcohol) in 1970-80's many drinks/ day Sex and Gender Information Value Date Recorded Sex Assigned at Male 06/12/2020 12:53 PM EDT Gender Identity Male 06/12/2020 12:53 PM EDT Sexual Orientation Straight 09/01/2020 3: 10 PM EST documented as of this encounter Plan of Treatment Upcoming Encounters Date Type Department Care Team (Late st Contact Info) Description 05/03/2023 Procedure Pass [facility] Cardiology Division [address] [facility] [address] [place] [address] 08/02/2023 Procedure Pass [facility] Cardiology Division [address] [place] Edu[address] [place] [address] 11/01/2023 Procedure Pass [facility] Cardiology Division [address] [place] [address] [place] [address] 04/30/2024 Procedure Pass [facility] Cardiology Division [address] [place] Edu[address] [place] [address] 05/29/2024 Procedure Pass [facility] Cardiology Division [address] [place] [address] [place] [address] 08/01/2024 Procedure Pass [facility] Cardiology Division [address] Edu[address] [place] [address] 08/01/2024 Procedure Pass [facility] Cardiology Division [address] [place] [address] [place] [address] 10/30/2024 1:00 PM EST Appointment [facility] Cardiology Division [address] [address] [place] [address] Osman Irene MD, MPH [address] [place] [address] [place] [address] [email or web address] 01/06/2025 10:00 AM EDT Appointment [address] [address] Igor Florian MD [address] [place] [address] [email or web address] 01/10/2025 12:15 PM EDT Office Visit [facility] Cardiology [address] [place] [address] Franco Melendez MD, PhD [address] [place] [place] [address] [email or web address] 01/23/2025 11:40 AM EDT Office Visit [facility] [address] [place] [address] Igor Florian MD [address]K [address] [place] [address] [email or web address] 01/29/2025 11:45 AM EDT Appointment [facility] Cardiology Division [address] [address] Osman Irene MD, MPH 55 [facility] [address] [address] [email or web address] 04/30/2025 12:30 PM EDT Appointment [facility] Cardiology Division [address] [place] [address] [address] Osman Irene MD, MPH 55 [facility] Deb[place] [place] [address] [email or web address] 05/21/2025 1:20 PM EDT Office Visit [facility] [address] [address] Otoniel Bell MD [address] [place] [address] [email or web address] 06/04/2025 3:00 PM EDT Appointment [facility] Cardiac EP [address] [place] [address] Osman Irene MD, MPH 55 [facility] [address] [place] [place] [address] [email or web address] 06/04/2025 3:30 PM EDT Office Visit [facility] Cardiac Arrhythmia Service [address] [place] [address] Osman Irene MD, MPH 55 [facility] [address] [address] [place] [address] [email or web address] documented as of this encounter Visit Diagnoses Not on filedocumented in this encounter Additional Health Concerns Infection Onset Date Last Indicated Resolved Time CoV-Exposed Comment:Exposed during encounter with HCW at [facility] 09/22/2021 09/28/2021 10/03/2021 2:[address] documented as of this encounter Care Teams Telecommunications Project Manager Relationship Specialty Start Date End Date Raheem Pettit MD [address] [address] PCP - General Internal Medicine 05/17/17 Andrew Christopher MD [address] [address] Cardiology 06/21/17 Patti Schilling MD [address] [place] [address] Pulmonary Disease 06/21/17 Epi Metzger MD [address] [place] [address] Nephrology 06/21/17 Otoniel Reyes MD [address] [address] Cardiology 09/15/21 documented as of this encounter Additional Source Comments The information contained in this document represents components of the legal health record. It is not the complete legal health record.[facility]
--- OUTSIDE RECORDS SUMMARY | 2024-09-20 11:56 | XMS_ITS | Clinical Summary ---
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 Total Date Time End 0+0000 [facility] Episode Statistic Total Date Time Start 8+0000 [facility] Episode Statistic Total Date Time End 0+0000 [facility] Episode Identifier 346 [facility] Episode Type Category VT [facility] Episode Date Time 1+0000 [facility] Episode Duration 1 s [facility] Episode Identifier 348 [facility] Episode Type Category Monitor [facility] Episode Date Time 6+0000 [facility] Episode Duration 184 s [facility] Episode Identifier 347 [facility] Episode Type Category Monitor [facility] Episode Date Time 0+0000 [facility] Episode Duration 62 s [facility] 07/31/2024 12:3 1 AM EST Narrative [facility] - 08/07/2024 8:24 PM EST Scheduled remote transmission: Appropriate PPM function. Presenting rhythm: AT-PACKING CHECKER 70s bpm Battery longevity estimate: 10 yrs 1 mos Episodes: 2 AT/AF episodes - available marker channels suggest SR w/ FFOS vs true AT/AF, lasting up to 3 mins 4 sec. Pt taking Eliquis per Epic. 1 NSVT episode - EGMs shows NSVT x 7 beats @ 194 bpm AP 49 ?PACKING CHECKER 99% Histograms: 60s-120s bpm Available lead measurements are within normal limits and trends are stable. Follow up: Remote 10/30/24 Dear Patient, You may see a lot of technical details in this report. Please be assured that important issues will be identified and someone will contact you if there is any necessary follow up. Osman Irene MD, MPH CV CARDIAC SERV ICES ORDERABLES [facility] [address] [place] [address] * (ABNORMAL) NT-proBNP (07/05/2024 3:06 PM EST) NT-PROBNP 2,676(H) 0 - 1,800 pg/mL [facility] Comment: Reference Range: Age <50 years: 0-450 pg/ml Age 50-75 years: 0-900 pg/ml Age >75 years: 0-1800 pg/ml Among patients with dyspnea, NT-proBNP is highly sensitive for the detection of acute congestive heart failure. In addition, a NT-proBNP <300 pg/ml effectively rules out acute congestive heart failure, with 99% negative predictive value. Knowledge of each individual patient's NT-proBNP range may be more useful than using similar cut-points for every patient. Marked elevations in NT-proBNP levels may be observed in states other than left ventricular congestive heart failure, including: acute coronary syndromes, right heart strain/failure (including pulmonary embolism and cor pulmonae), critical illness, renal failure, atrial fibrillation, as well as advanced age. Falsely low NT-proBNP in congestive heart failure patients may be observed with increasing body-mass index. 07/05/2024 3:06 PM EST 07/05/2024 5:54 PM EST Franco Melendez MD, PhD LAB BLOOD ORDERABLES Performing Organization Address City/[facility]/ZIP Co de Phone Number [address] [address] * (ABNORMAL) Magnesium (07/05/2024 3:06 PM EST) MAGNESIUM 2.6(H) 1.7 - 2.4 mg/dL [facility] 07/05/2024 3:06 PM EST 07/05/2024 5:54 PM EST Franco Melendez MD, PhD LAB BLOOD ORDERABLES Performing Organization Address [facility] Co de Phone Number [address] [address] * (ABNORMAL) Basic metabolic panel (07/05/2024 3:06 PM EST) SODIUM 141 135 - 145 mmol/L [facility] POTASSIUM 4.4 3.4 - 5.0 mmol/L [facility] CHLORIDE 99 98 - 108 mmol/L [facility] CO2 26 23 - 32 mmol/L [facility] BUN 69(H) 8 - 25 mg/dL [facility] CREATININE 2.48(H) 0.60 - 1.30 mg/dL [facility] GLUCOSE 119(H) 70 - 110 mg/dL [facility] CALCIUM 9.3 8.5 - 10.5 mg/dL [facility] EGFR 25(L) >59 mL/min/1. 73m2 [facility] Comment:Estimated glomerular filtration rate calculated using the CKD-EPI refit equation. ANION GAP 16 3 - 17 mmol/L [facility] 07/05/2024 3:06 PM EST 07/05/2024 5:54 PM EST Franco Melendez MD, PhD LAB BLOOD ORDERABLES Performing Organization Address [facility] Co de Phone Number [address] [address] * ECG 12-LEAD (07/05/2024 1:26 PM EST) Systolic Blood Pressure [facility] Diastolic Blood Pressure [facility] Ventricular Rate EKG/MIN 78 BPM [facility] Atrial Rate 78 BPM [facility] OK Interval 282 ms [facility] QRS Duration 172 ms [facility] QT Interval 448 ms [facility] QTC Interval 510 ms [facility] P [place] 74 degrees [facility] R Wave [place] -83 degrees [facility] T Wave [place] 89 degrees [facility] 07/05/2024 1:26 PM EST 07/06/2024 8:39 AM EST Narrative [facility] - 07/06/2024 8:39 AM EST ATRIAL-SENSED VENTRICULAR-PACED RHYTHM WITH PROLONGED AV CONDUCTION WHEN COMPARED WITH ECG OF 07-Jun-2024 15:38, A-V SEQUENTIAL PACING COMPLEXES NO LONGER PRESENT Kyle Tello MD ECG ORDERABLES [facility] * NC Amyloid SPECT (07/05/2024 12:54 PM EST) Anatomical Region Laterality Modality Heart, Vascular MGNucCar 07/05/2024 9:00 AM EST Narrative 07/05/2024 1:15 PM EST [facility] ? Name[facility] : 1940 ?Study Date: 07/05/2024 ?BMI: 35.58 ?Referring : [id number] FRANCO ANNA SAKERS Nuclear Cardiology Report [facility] Amyloid Imaging Purpose/Indications: * Cardiomyopathy, undefined, further testing. Pre-Test Symptoms: Dyspnea. Cardiac History: Arrhythmia, known coronary artery disease and heart failure and/or CMP. Location: [place] [address] PROCEDURE: Radionuclide pyrophosphate cardiac amyloidosis scan. COMPARISON: No prior study available for comparison. TECHNIQUE: 16.3mCi technetium 99m pyrophosphate was injected. Planar and SPECT images were performed 3 hours after injection. FINDINGS: Qualitative: Planar and SPECT images demonstrate no pyrophosphate uptake within the left ventricular myocardium. Semi-quantitative: On SPECT imaging, the intensity of myocardial uptake is scored as 0: using the following scoring system. Grade 0 None Grade 1 Uptake less than rib Grade 2 Uptake equal to rib Grade 3 Uptake greater than rib, but with absent or only mild rib activity. Quantitative: Using the anterior planar view, regions of interest were placed over the left ventricular myocardium and a corresponding region of the contralateral right lung to determine relative mean counts. The ratio of heart to contralateral lung activity is 1.00. A ratio of greater than or equal to 1.3 after three hours is generally accepted as suggestive evidence of an abnormal study. Incidental Findings: Multifocal contiguous sites of abnormal uptake at the left anterior 4-8th costochondral junctions, as well as at the left 10th rib, most likely sequela of prior trauma. Degenerative changes at the bilateral sternoclavicular joints, sternomanubrial joint, and multiple levels of the visualized spine. IMPRESSION: Pyrophosphate imaging is not suggestive of TTR amyloidosis. We have personally reviewed the data relevant to the interpretation of this study. Signed by: [id number] Mary Gamez - Managed Care Analyst at 1:08:11 PM on 07/05/2024 [id number] Raffy Peres - Radiologist at 1:15:01 PM on 07/05/2024 +++ Final +++ Procedure Note Igor Gamez MD - 07/05/2024 [facility] [place] Name[facility] 1940 Study Date:07/05/2024 BMI: 35.58 Referring MD: [id number] FRANCO RIVERA Nuclear Cardiology Report [facility] Amyloid Imaging Purpose/Indications: * Cardiomyopathy, undefined, further testing. Pre-Test Symptoms: Dyspnea. Cardiac History: Arrhythmia, known coronary artery disease and heartfailure and/or CMP. Location: [facility] [place] [address] PROCEDURE: Radionuclide pyrophosphate cardiac amyloidosis scan. COMPARISON: No prior study available for comparison. TECHNIQUE: 16.3mCi technetium 99m pyrophosphate was injected. Planar andSPECT images were performed 3 hours after injection. FINDINGS: Qualitative: Planar and SPECT images demonstrate no pyrophosphate uptake within theleft ventricular myocardium. Semi-quantitative: On SPECT imaging, the intensity of myocardial uptake is scored as 0: usingthe following scoring system. Grade 0 None Grade 1 Uptake less than rib Grade 2 Uptake equal to rib Grade 3 Uptake greater than rib, but with absent or only mild ribactivity. Quantitative: Using the anterior planar view, regions of interest were placed over theleft ventricular myocardium and a corresponding region of thecontralateral right lung to determine relative mean counts. The ratio ofheart to contralateral lung activity is 1.00. A ratio of greater than or equal to 1.3 after three hours is generallyaccepted as suggestive evidence of an abnormal study. Incidental Findings: Multifocal contiguous sites of abnormal uptake at theleft anterior 4-8th costochondral junctions, as well as at the left 10thrib, most likely sequela of prior trauma. Degenerative changes at thebilateral sternoclavicular joints, sternomanubrial joint, and multiple levels of the visualized spine. IMPRESSION: Pyrophosphate imaging is not suggestive of TTR amyloidosis. We have personally reviewed the data relevant to the interpretation ofthis study. Signed by: [id number] Mary Gamez - Managed Care Analyst at 1:08:11 PM on07/05/2024 [id number] Raffy Peres - Radiologist at 1:15:01 PM on 07/05/2024 +++ Final +++ Franco Melendez MD, PhD CV NM CARD IAC * TTE COMPREHENSIVE (06/22/2024 12:23 PM EDT) Body Surface Area 2.29 m2 Height 178 cm Weight 112 kg Systolic BP 147 mmHg Diastolic BP 60 mmHg Interventricular Septum Thickness 11 6 - 11 mm Left Ventricle Internal Diameter End Diastole 56 42 - 58 mm Left Ventricle Internal Diameter End Systole 46 <40 mm Left Ventricular Outflow Tract Diameter 24.0 mm LVOT VTI REST 226.0 mm Left Ventricular Outflow Tract Velocity 1.0 m/s Left Ventricular Outflow Tract Gradient at Rest 4 mmHg Left Ventricular Posterior Wall Thickness 7 6 - 11 mm Ejection Fraction 60 50 - 75 Percent Left Atrium Dimension Anterior-Posterior 48 15 - 40 mm Aortic Valve Peak Velocity 270.0 cm/s Aortic Valve Peak Gradient 29 mmHg Aortic Valve Mean Gradient 16 mmHg Aortic Valve Time Velocity Integral 654.0 mm Aortic Sinus Diameter 33 <40 mm Ascending Aorta Diameter 40 <36 mm Inferior Vena Cava Diameter 25 <21 mm Mitral Valve A Wave Speed 119.0 cm/s Mitral Valve E Wave Speed 101.0 cm/s Right Ventricle Basal Diameter 59 25 - 41 mm Tricuspid Valve Peak Velocity 3.0 m/s Raw LV EF% 33 % Relative Wall Thickness 0.25 0.22 - 0.42 Aortic Valve Prosthetic Peak Gradient 29 mmHg Aortic Valve Sinus Index by BSA 14 mm/m2 Aorta Sinus Index by Height 1.85 cm/m Aorta Sinus CSA index by Height 4.80 cm2/m Ascending Aorta Index 17 mm/m2 Asc Aorta CSA Index by Height 7.06 cm2/m Right Ventricle to Right Atrium Pressure Gradient 36 mmHg Right Ventricle Peak Systolic Pressure (Assuming RAP 10) 46 mmHg MGB CV ECHO TV RVSP (ASSUMING RAP OF 5) 41 mmHg RVSP (Exclusive of RAP) 36 mmHg Ascending Aorta Index 17 mm Aortic Sinus Index 14 mm Ascending Aorta Diameter 17 mm Aortic Valve Sinus Index 1 14 20 - 32 mm AO ASC DIAM BSA INDEX 17.47 Right Ventricle Peak Systolic Pressure 39 mmHg Aortic Valve Prosthetic Mean Gradient 16 mmHg Right Atrium Pressure Estimated 3 mmHg Left Atrial Volume Index 38 16 - 34 mL/m2 Left Ventricle Ea Lateral Wave Speed 11.1 cm/s Right Ventricle TAPSE 29 >=17 mm MV E/E' Tissue Velocity Lateral 9.10 Right Ventricle Pulse Doppler S Wave 11.7 >=9.5 cm/s Aortic Valve Peak Velocity 2.7 m/s Left Ventricle E Wave Speed 101.0 cm/s Left Ventricle A Wave Speed 119.0 cm/s MV E/A ratio 0.8 Left Ventricle Ea Septal Wave Speed 5.4 cm/s MV E/e' septal 18.70 Left Ventricle E/e' Average 13.9 Left Atrial Volume 88 mL Left Atrial Volume Index by Height 49 mL/m Right Atrium Area 28 cm2 Right Atrium Area index 12 cm2/m2 Aortic Valve Regurgitation Pressure Half Time 428 ms Echo E/Ea 18.70 Anatomical Region Laterality Modality Heart Ultrasound Narrative 06/23/2024 8:25 AM EDT Images from the original result were not included. 1. ??Image quality is fair on the study. ??The estimated ejection fraction is normal at 55 to 60%. ??Within the technical limitations of the study I do not see any obvious regional wall motion abnormalities. ??There is a septal bounce of a bundle branch block. ??Diastolic function was indeterminate and there is normal left ventricular thickness. 2. ??Moderate dilatation to the RV cavity with a dimension of 59 mm. ??There is an ICD or pacing catheter evident in the right heart. 3. ??Calcified trileaflet aortic valve there is at least mild aortic stenosis although the excursion appears to be mild to moderately reduced. ?? The peak gradient is 29 mmHg with a mean of 16 mmHg. ??The velocity is 2.7 m/s. ??There is moderate aortic regurgitation the pressure half-time is 428 ms and the ascending aortic root is mildly dilated 40 mm. 4. ??Trace to mild mitral and mild to moderate tricuspid insufficiency, the PA pressures between 35 and 40 mmHg. 5. ??Normal pericardium when compared to the prior echocardiogram done in December 2022, no significant change. Left Ventricle The left ventricle is normal in size. There is normal wall thickness. The interventricular septal thickness is 11 mm. The LV posterior wall thickness is 7 mm. There is normal left ventricular systolic function. The LV ejection fraction is 60% (calculated via biplane measurement). LV diastolic function parameters are indeterminate in total. The E/A ratio is 0.8. The e' septal wave velocity is 5.4 cm/s. The e' lateral wave velocity is 11.1 cm/s. The average E/e' ratio is 13.9. Right Ventricle The right ventricle is moderately dilated. The RV basal dimension is 59 mm. There is a lead (ICD/pacer) present in the right ventricle. There is normal right ventricular systolic function. TAPSE is 29 mm. RV S' wave is 11.7 cm/s. There are no wall motion abnormalities. Left Atrium The left atrium is mildly dilated. The left atrial volume is 88 mL. The left atrial volume index by BSA is 38 mL/m2. There are normal flow patterns in the pulmonary vein. Right Atrium The right atrium is moderately dilated. The right atrial area is 28 cm2. The right atrial area index is 12 cm2/m2. The IVC is dilated with normal inspiratory collapse. This is consistent with elevated RA pressure. The IVC diameter is 25 mm (normal = 21 mm). Hepatic veins are normal in size. Mitral Valve There is mild mitral valve thickening. There is mitral annular calcification. There is no mitral stenosis. There is trace mitral regurgitation. Tricuspid Valve The tricuspid valve appears normal. There is no tricuspid stenosis. There is mild to moderate tricuspid regurgitation. The RV systolic pressure was calculated at 39 mmHg (using TR peak velocity of 3.0 m/s and assuming an RA pressure of 3 mmHg). Pulmonary pressures are mildly elevated. Aortic Valve The aortic valve is tricuspid. There is calcification of multiple leaflets. There is mild aortic stenosis. The aortic valve peak velocity is 2.7 m/s. The peak and mean aortic valve gradients are 29 mmHg and 16 mmHg respectively. There is moderate aortic regurgitation. The regurgitation pressure half time is 428 ms. The aortic sinuses are normal in size. The ascending aorta is mildly dilated. The ascending aortic diameter is 40 mm. Pulmonic Valve The pulmonic valve appears normal. Pericardium The pericardium appears normal. There is a trace pericardial effusion. General Findings The image quality was good (2). Technique(s) used in the evaluation: Color flow Doppler and Spectral Doppler. The predominant rhythm during the study was a paced rhythm. Comparison Findings Compared to prior study on 01/06/2023, IAS/IVS The interatrial septum appears normal. There is no evidence of patent foramen ovale (PFO). The interventricular septal motion appears abnormal due to RV volume overload. There is no evidence of a ventricular septal defect. Franco Melendez MD, PhD CV ECHO OR DERABLES * Lipid panel (06/07/2024 2:14 PM EDT) HDL 43 35 - 100 mg/dL [facility] CHOLESTEROL 140 <200 mg/dL [facility] TRIGLYCERIDES 122 40 - 150 mg/dL [facility] LDL 73 50 - 129 mg/dL [facility] CARDIAC RISK RATIO 3.3 0.0 - 5.0 [facility] NON-HDL CHOLESTEROL 97 mg/dL [facility] Comment:NCEP ATP III guideli milton suggest a non-HDL cholesterol goal 30 mg/dl higher than the patient-specific LDL goal. 06/07/2024 2:14 PM EDT 06/07/2024 5:09 PM EDT Franco Melendez MD, PhD LAB BLOOD ORDERABLES [facility] [address] [place] [address] from Last 3 Months or Most Recently Relevant to Health Maintenance Advance Directives * Full Code (Presumed) (Latest Code Status on File) Date Activated Date Inactivated Comments 11/20/2017 12:28 PM 11/28/2017 4:49 PM Care Teams Tester/Lift Trucker Relationship Specialty Start Date End Date Raheem Pettit MD [address] [address] PCP - General Internal Medicine 05/17/17 Andrew Christopher MD [address] [place] [id number] Cardiology 06/21/17 Patti Schilling MD [address] [place] [id number] Pulmonary Disease 06/21/17 Epi Metzger MD [facility] [place] [address] Nephrology 06/21/17 Otoniel Reyes MD [address] [place] [place] [id number] Cardiology 09/15/21 Additional Source Comments The information contained in this document represents components of the legal health record. It is not the complete legal health record.[facility]
--- OUTSIDE RECORDS SUMMARY | 2024-09-20 11:56 | XMS_ITS | Encounter Summary ---
Author Organization [employer] [facility] Address [phone] [facility] [place] [address] Care Team Providers Care Dba Name Role Phone Raheem Pettit MD Primary Care Provider Andrew Christopher MD Unavailable Patti Schilling MD Unavailable [phone] Epi Metzger MD Unavailable Otoniel Reyes MD Unavailable [phone] Encounter Details Date Type Department Care Team (Late st Contact Info) Description 05/03/2023 Procedure Pass [facility] [address] [facility] [address] [place] [address] Social History Tobacco Use Types Packs/Day Years [...] st Contact Info) Description 05/03/2023 Procedure Pass [facility] [address] [facility] [address] [place] [address] 08/02/2023 Procedure Pass [facility] [address] [facility] [address] [place] [address] 11/01/2023 Procedure Pass [facility] [address] [facility] [address] [place] [address] 04/30/2024 Procedure Pass [facility] [address] [facility] [address] [place] [address] 05/29/2024 Procedure Pass [facility] [address] [facility] [address] [place] [address] 08/01/2024 Procedure Pass [facility] [address] [facility] [address] [place] [address] 08/01/2024 Procedure Pass [facility] [address] [facility] [address] [place] [address] 10/30/2024 1:00 PM EST Appointment [facility] [address] [facility] [address] [place] [address] Osman Irene MD, MPH 55 [facility] [address] [place] [address] [email or web address] 01/06/2025 10:00 AM EDT Appointment [address] [address] Igor Florian MD [address] [facility] [address] [place] [address] [email or web address] 01/10/2025 12:15 PM EDT Office Visit [facility] [address] [place] [address] [place] [address] Franco Melendez MD, PhD [address] [facility] [address] [address] [email or web address] 01/23/2025 11:40 AM EDT Office Visit [facility] [address] [place] [address] Igor Florian MD [address] [facility] [address] [place] [address] [email or web address] 01/29/2025 11:45 AM EDT Appointment [facility] [address] [facility] [address] [place] [address] Osman Irene MD, MPH [address] [place] [address] [address] [email or web address] 04/30/2025 12:30 PM EDT Appointment [facility] [address] [facility] [address] [facility] [address] Osman Irene MD, MPH [address] [place] [address] [address] [email or web address] 05/21/2025 1:20 PM EDT Office Visit [facility] [address] [address] Otoniel Bell MD [address] [place] [address] [email or web address] 06/04/2025 3:00 PM EDT Appointment [facility] [place] EP [address] [place] [address] [place] [address] Osman Irene MD, MPH [address] [address] 06/04/2025 3:30 PM EDT Office Visit [facility]ia Service [address] [place] [address] Osman Irene MD, MPH [address] [place] [address] [email or web address] documented as of this encounter Visit Diagnoses Not on filedocumented in this encounter Care Teams Dba Relationship Specialty Start Date End Date Raheem Pettit MD [address] [place] [address] PCP - General Internal Medicine 05/17/17 Andrew Christopher MD [address] [place] [address] Cardiology 06/21/17 Patti Schilling MD [address] [place] [address] Pulmonary Disease 06/21/17 Epi Metzger MD [address] [place] [address] Nephrology 06/21/17 Otoniel Reyes MD [address] [address] Cardiology 09/15/21 documented as of this encounter Additional Source Comments The information contained in this document represents components of the legal health record. It is not the complete legal health record.[facility]
--- OUTSIDE RECORDS SUMMARY | 2024-09-20 11:56 | XMS_ITS | Clinical Summary ---
Author Organization [facility] Address [address] [place] [phone] Phone Care Team Providers Care Dairy Hand Name Role Phone Rimma Pettit MD Primary Care Provider [phone] Allergies Active Allergy Reactions Criticality Noted Date Comments Amoxicillin Other (see comments) 02/09/2021 Doxycycline Other (see comments) 02/09/2021 Medications Fluticasone-Ume clidin-Vilant (Trelegy Ellipta) 100-62.5-25 MCG/INH aerosol powder 1 (one) time each day Active nitroglycerin (NITROSTAT) 0.[address] 1 tablet under the tongue every 5 (five) minutes if needed Active ipratropium-alb uterol (DUO-NEB) 0.5-2.5 mg/3 mL nebulizer solution Comments: Filled Date: Dec 13 2016 12:00AM Duration: 30 Active albuterol HFA (PROVENTIL HFA;VENTOLIN HFA) 108 (90 Base) MCG/ACT inhaler Comments: Filled Date: Dec 28 2011 12:00AM Duration: 90 Active Insulin Pen Needle 32G X 6 MM misc Active apixaban (ELIQUIS) 5 MG tablet Take 2.5 mg by mouth in the morning and 2.5 mg in the evening. 05/20/2021 Active Basaglar KwikPen 100 UNIT/ML injection Inject 50 Units under the skin every night 07/20/2021 Active insulin lispro (HumaLOG) 100 UNIT/ML injection Inject under the skin 3 (three) times a day before meals Active sennosides-docu sate sodium (SENOKOT-S) 8.6-50 MG tablet Take 1 tablet by mouth 1 (one) time each day Active polyethylene glycol (GLYCOLAX) 17 g packet Take 17 g by mouth 1 (one) time each day Active Empagliflozin (Jardiance) 10 MG tablet Take 10 mg by mouth 1 (one) time each day in the morning Active carvedilol (COREG) 6.25 MG tablet Take 6.25 mg by mouth in the morning and 6.25 mg in the evening. Take with meals. 10/23/2022 Active tamsulosin (FLOMAX) 0.4 MG 24 hr capsule Take 0.4 mg by mouth at bed time 03/24/2023 Active Dulaglutide 0.75 MG/0.5ML solution pen-injector Inject 0.75 mg under the skin every 7 (seven) days Active sacubitril-vals maria c (Entresto) 49-51 MG per tablet Take 1 tablet by mouth in the morning and 1 tablet in the evening. Active finasteride (PROSCAR) 5 MG tablet Take 5 mg by mouth 1 (one) time each day 06/18/2024 Active simvastatin (ZOCOR) 40 MG tablet Take 1 tablet (40 mg total) by mouth 1 (one) time each day in the evening 90 tablet 3 06/26/2024 Active allopurinol (ZYLOPRIM) 300 MG tablet Take 1 tablet (300 mg total) by mouth 1 (one) time each day 90 tablet 3 06/26/2024 Active montelukast (SINGULAIR) 10 MG tablet Take 1 tablet (10 mg total) by mouth 1 (one) time each day in the evening 90 tablet 4 06/26/2024 Active cholecalciferol (Vitamin D High Potency) 25 MCG (1000 UT) capsule Take 1 capsule (1,000 Units total) by mouth 1 (one) time each day 30 capsule 11 06/26/2024 Active Soaanz 40 MG tablet TAKE 60 MG BY MOUTH IN THE MORNING AND 60 MG IN THE EVENING. 270 tablet 3 08/14/2024 Active Active Problems Problem Noted Date Diagnosed Date Chronic obstructive pulmonary disease 07/02/2023 07/02/2023 Complete atrioventricular block 10/06/2022 07/02/2023 Paroxysmal atrial fibrillation 11/18/2021 Heart failure with normal ejection fraction 02/26 History of gastrointestinal bleed 03/17/2021 History of hematuria 03/17/2021 Non-alcoholic fatty liver 03/17/2021 Obstructive sleep apnea syndrome 03/17/2021 Hypertension 03/17/2021 Obesity 03/17/2021 Acute nontraumatic kidney injury 02/09/2021 Anemia in chronic kidney disease 02/09/2021 Stage 3b chronic kidney disease 02/09/2021 Coronary arteriosclerosis 02/09/2021 Edema 02/09/2021 Gout, not otherwise specified 02/09/2021 Hyperparathyroidism due to renal insufficiency 0 02/09/2021 Iron deficiency anemia 02/09/2021 Renal disorder due to type 2 diabetes mellitus 0 02/09/2021 Resolved Problems Problem Noted Date Diagnosed Date Resolved Date Acquired hammer toe of right foot 11/18/2021 12/11/2022 Non-pressure chronic ulcer o f other part of left foot limited to breakdown of skin 11/18/2021 0 12/11/2022 Polyneuropathy due to type 1 diabetes mellitus 11/18/2021 12/11/2022 Pericardial effusion 11/16/2021 023 Hyperglycemia 09/28/2021 02/20/2022 COVID-19 viral pneumonia 06/28/2021 Atrial flutter 03/17/2021 02/20/2022 Coronary arteriosclerosis 03/17/2021 Gastrointestinal hemorrhage 02/09/2021 06/28/2021 Essential hypertension 02/09/202102/20 Obesity 02/09/2021 06/28/2021 Encounters Date Type Department Care Team Description 08/13/2024 Refill [facility] [address] [address] Epi Metzger MD 08/01/2024 Office Communication [facility] [place] [address] [address] Bisi Maciel 06/26/2024 10:00 AM EDT Office Visit [facility] [place] [address] [address] Epi Metzger MD Other acute kidney failure (HCC) (Primary Dx); Stage 3b chronic kidney disease (HCC); Renal disorder due to type 2 diabetes mellitus <Other diabetic kidney complication> (HCC); Gout, not otherwise specified; Edema, not otherwise specified; Hypertension; Overweight from Last 3 Months Immunizations Name Administration Dates Next Due Influenza (IM) Preservative Free 021,06/19/2020,05/17/2019,2017,09/01/2017,06/07/2016,06/09/2015 Influenza Split High Dose Preservative Free IM 05/18/2021,05/17/2019,05/11/2018,2017,07/03/2016,05/28/2013 Influenza TIV (IM) 09/10/2017 Influenza, Unspecified 09/10/2017 Pfizer SARS-COV-2 11/01/2020,10/11/2020 Pneumococcal Conjugate 13-Valent 09/21/2019 Shingrix 09/11/2018,07/11/2018 Family History Medical History Relation Comments Hypertension Child son/different he alth complications Cancer Father Diabetes Mother Stroke Mother Diabetes Sibling 1 brother Hypertension Sibling 2 brother who is d eceased Heart disease Sibling 3 brother who is d eceased Relation Status Comments Child Father Mother Sibling 1 Sibling 2 Sibling 3 Social History Tobacco Use Types Packs/Day Years Used Date Smoking Tobacco: Never Smokeless Tobacco: Never Tobacco Cessation:Counseling Given: Not Answered Alcohol Use Standard Drinks/Week Comments Yes 0 (1 standard drink = 0.6 oz pure alcohol) Alcoholic Drinks/day: Occasional social drink Sex and Gender Information Value Date Recorded Sex Assigned at Not on file Legal Sex Male 5:06 PM EST Gender Identity Not on file Sexual Orientation Not on file Last Filed Vital Signs Vital Sign Reading Time Taken Comments Blood Pressure 123/50 06/26/2024 10:24 AM EDT Pulse 64 06/26/2024 10:24 AM EDT Temperature - - Respiratory Rate - - Oxygen Saturation 95% 06/26/2024 10:24 AM EDT Inhaled Oxygen Concentration - - Weight 116 kg (255 lb) 06/26/2024 10:24 AM EDT Height 177.8 cm (5' 10 ) 06/26/2024 10:24 AM EDT Body Mass Index 36.59 06/26/2024 10:24 AM EDT Plan of Treatment Upcoming Encounters Date Type Department Care Team (Late st Contact Info) Description 01/15/2025 10:00 AM EDT Office Visit [facility] [address] [facility] [address] [place] [address] Epi Metzger MD [address] [facility] [address] [place] [address] Health Maintenance Due Date Last Done Comments Hepatitis B Vaccine (1 of 3 - Risk 3-dose series) 2002 Pneumococcal Vaccine: 65+ Ye ars (2 of 2 - PPSV23 or PCV20) 11/16/2019 09/21/2019 Diabetes: Pedal Pulse Checked 09/25/2020 Diabetes: Sensory Foot Exam 09/25/2020 Diabetes: Visual Foot Exam 09/25/2020 Diabetes: Ophthalmology Exam 12/21/2021, 03/18/2020, 11/13/2019 Diabetes: Hemoglobin A1C 03/06/2023 023, 11/01/2022, 09/18/2021, Additional history exists Influenza Vaccine (#1) 2024 , 05/18/2021, 04/23/2021, Additional history exists Procedures Procedure Name Priority Date/Time Associated Diagnosis Comments HEMOGLOBIN A1C Routine 12/05/2022 11:58 AM EDT from Last 3 Months or Most Recently Relevant to Health Maintenance Results * (ABNORMAL) Hemoglobin A1c (12/05/2022 11:58 AM EDT) [facility] Hemoglobin A1C 7.5(H) (4.0-5.6) % [facility] Comment: MONITORING: In known diabetic patients, hemoglobin A1c targets should be discussed with health care provider. DIAGNOSTIC USE: ??The [place] Diabetes Association (ADA) and the World Health Organization (WHO) recommend the use of HbA1c to diagnose diabetes using a threshold of 6.5%. Patients who have an HbA1c between 5.7% and 6.4% are considered at increased risk for developing diabetes in the future. CAUTION: Falsely low HbA1c results may be observed in patients with hemolytic anemia, homozygous forms of abnormal hemoglobin (e.g. SS, CC, SC), , recent blood loss or hemoglobin F greater than 7%. Fructosamine may be used as an alternate test in these cases. REFERENCE: ADA: Standards of Medical Care in Diabetes 2020, The Journal of Clinical and Applied Research and Education Volume 43, Supplement 1 Testing performed or reported by [facility], a Service of [facility], [address] [place] [address] Kevin Sargent MD, Extruder Operator Horizontal [facility]# [id number] 12/05/2022 11:5 8 AM EDT 12/05/2022 12:02 PM EDT us Epi Metzger MD LAB BLOOD ORDERABLES Final Re sult [facility] from Last 3 Months or Most Recently Relevant to Health Maintenance Insurance [facility] MEDICARE ([address] [place] [id number] [facility] MEDICARE Care Teams Dairy Hand Relationship Specialty Start Date End Date Rimma Pettit MD [address] [place] [address] PCP - General Internal Medicine 09/28/21
--- OUTSIDE RECORDS SUMMARY | 2024-09-20 11:56 | XMS_ITS | Encounter Summary ---
Author Organization [employer] [facility] Address [phone] [address] [place] [address] Care Team Providers Care Machine Tool Operator Name Role Phone Raheem Pettit MD Primary Care Provider Andrew Christopher MD Unavailable [phone] Patti Schilling MD Unavailable [phone] Epi Metzger MD Unavailable Otoniel Reyes MD Unavailable [phone] Encounter Details Date Type Department Care Team (Late st Contact Info) Description 07/07/2021 Procedure Pass [facility] 6TH AL PERIOP DEPT [address] [place] [address] Social History Tobacco Use Types Packs/Day Years [...] Info) Description 05/03/2023 Procedure Pass [facility] [address] [facility] [address] [place] [address] 08/02/2023 Procedure Pass [facility] [place] [address] [facility] [address] [place] [address] 11/01/2023 Procedure Pass [facility] [address] [facility] [address] [place] [address] 04/30/2024 Procedure Pass [facility] [address] [facility] [address] [place] [address] 05/29/2024 Procedure Pass [facility] [address] [facility] [address] [place] [address] 08/01/2024 Procedure Pass [facility] [address] [facility] [address] [place] [address] 08/01/2024 Procedure Pass [facility] [address] [facility] [address] [place] [address] 10/30/2024 1:00 PM EST Appointment [facility] [place] [address] [facility] [address] [place] [address] Osman Irene MD, MPH [address] [place] [place] [address] [email or web address] 01/06/2025 10:00 AM EDT Appointment [address] [address] Igor Florian MD [address] [place] [address] [email or web address] 01/10/2025 12:15 PM EDT Office Visit [facility] [address] [place] [address] Franco Melendez MD, PhD [address] [place] [address] [email or web address] 01/23/2025 11:40 AM EDT Office Visit [facility] [address] [place] [address] Igor Florian MD [address] [place] [address] [email or web address] 01/29/2025 11:45 AM EDT Appointment [facility] [address] [place] [address] [address] Osman Irene MD, MPH [address] [facility] [address] [place] [address] [address] [email or web address] 04/30/2025 12:30 PM EDT Appointment [facility] [address] [place] [address] [address] Osman Irene MD, MPH 55 [facility] [place] [address] [place] [address] [email or web address] 05/21/2025 1:20 PM EDT Office Visit [facility] [address] [address] Otoniel Bell MD [address] [place] [phone] [email or web address] 06/04/2025 3:00 PM EDT Appointment [facility] EP [address] [place] [address] [place] [address] Osman Irene MD, MPH [address] [facility] [address] [place] [address] [place] [address] [email or web address] 06/04/2025 3:30 PM EDT Office Visit [facility]ia [facility] [address] [place] [address] [place] [address] Osman Irene MD, MPH 55 [facility] [address] [place] [address] [email or web address] documented as of this encounter Visit Diagnoses Not on filedocumented in this encounter Additional Health Concerns Infection Onset Date Last Indicated Resolved Time CoV-Exposed Comment:Exposed during encounter with HCW at [facility] 09/22/2021 09/28/2021 10/03/2021 2:[address] documented as of this encounter Care Teams Machine Tool Operator Relationship Specialty Start Date End Date Raheem Pettit MD [address] [address] PCP - General Internal Medicine 05/17/17 Andrew Christopher MD [address] [address] Cardiology 06/21/17 Patti Schilling MD [address] [place] [address] Pulmonary Disease 06/21/17 Epi Metzger MD [address] [place] [address] Nephrology 06/21/17 Otoniel Reyes MD [address] [address] Cardiology 09/15/21 documented as of this encounter Additional Source Comments The information contained in this document represents components of the legal health record. It is not the complete legal health record.[facility]
--- OUTSIDE RECORDS SUMMARY | 2024-09-20 11:56 | XMS_ITS | Encounter Summary ---
Author Organization [facility] Address [phone] [address] [place] [address] Care Team Providers Care Rack Puller Name Role Phone Raheem Pettit MD Primary Care Provider Andrew Christopher MD Unavailable [phone] Patti Schilling MD Unavailable Epi Metzger MD Unavailable Otoniel Reyes MD Unavailable Encounter Details Date Type Department Care Team (Late st Contact Info) Description 12/30/2022 Procedure Pass [facility] Cardiac US [address] [place] [address] Social History Tobacco Use Types Packs/Day Years [...] on file 12/23/2022 No 12/23/2022 No 12/23/2022 Sex and Gender Information Value Date Recorded Sex Assigned at Male 06/12/2020 12:53 PM EDT Gender Identity Male 06/12/2020 12:53 PM EDT Sexual Orientation Straight 09/01/2020 3: 10 PM EST documented as of this encounter Plan of Treatment Upcoming Encounters Date Type Department Care Team (Late st Contact Info) Description 05/03/2023 Procedure Pass [facility] Cardiology Division [address] [place] [address] [place] [address] 08/02/2023 Procedure Pass [facility] Cardiology Division [address] [place] [address] [place] [address] 11/01/2023 Procedure Pass [facility] Cardiology Division [address] [place] [address] [place] [address] 04/30/2024 Procedure Pass [facility] Cardiology Division [address] [place] [address] [place] [address] 05/29/2024 Procedure Pass [facility] Cardiology Division [address] [place] [address] [place] [address] 08/01/2024 Procedure Pass [facility] Cardiology Division [address] [place] [address] [place] [address] 08/01/2024 Procedure Pass [facility] Cardiology Division [address] [place] [address] [place] [address] 10/30/2024 1:00 PM EST Appointment [facility] Cardiology Division [address] [place] [address] [place] [address] Osman Irene MD, MPH [address] [facility] [address] [place] [address] [place] [address] [email or web address] 01/06/2025 10:00 AM EDT Appointment [address] [address] Igor Florian MD [address] [place] [address] [email or web address] 01/10/2025 12:15 PM EDT Office Visit [facility] Cardiology [address] [place] [place] [address] Franco Melendez MD, PhD [address] [place] [address] 01/23/2025 11:40 AM EDT Office Visit [facility] 55 [facility] 5th [place] [address] Igor Florian MD [facility] [place] [address] [email or web address] 01/29/2025 11:45 AM EDT Appointment [facility] Cardiology Division 55 [facility] [address] Osman Irene MD, MPH [address] [place] [address] 04/30/2025 12:30 PM EDT Appointment [facility] Cardiology Division [address] [address] Osman Irene MD, MPH [address] [place] [address] 05/21/2025 1:20 PM EDT Office Visit [facility] [address] [address] Otoniel Bell MD [address] [place] [address] [email or web address] 06/04/2025 3:00 PM EDT Appointment [facility] Cardiac EP [address] [address] Osman Irene MD, MPH [address] [place] [address] 06/04/2025 3:30 PM EDT Office Visit [facility] Cardiac Arrhythmia Service 55 [facility] [address] [place] [address] Osman Irene MD, MPH [address] [employer] [address] [place] [address] [email or web address] documented as of this encounter Visit Diagnoses Not on filedocumented in this encounter Care Teams Rack Puller Relationship Specialty Start Date End Date Raheem Pettit MD [address] [address] PCP - General Internal Medicine 05/17/17 Andrew Christopher MD [address] [place] [address] Cardiology 06/21/17 Patti Schilling MD [address] [place] [address] Pulmonary Disease 06/21/17 Epi Metzger MD [address] [place] [address] Nephrology 06/21/17 Otoniel Reyes MD [address] [address] Cardiology 09/15/21 documented as of this encounter Additional Source Comments The information contained in this document represents components of the legal health record. It is not the complete legal health record.[facility]
--- OUTSIDE RECORDS SUMMARY | 2024-09-20 11:57 | XMS_ITS ---
Author Organization [facility] Luis E Hunt Address [address] [facility] [place] Hunt [address] Care Team Providers Care Insurance Sales Supervisor Name Role Phone Rimma Pettit Primary Care Provider Fernando Diane Unavailable [phone] Allergies Allergen (clinical drug ingredient) Drug/Non Drug [...] day for 30 day(s) Not-Taking Social History Tobacco Use: Social History Observation [...] Ordered Date Performed Result Body Sit e 28845-KFJZRRJ NAIL, 6 OR MORE 07/01/2024 N/A 49819-NMIV SKIN LESIONS, 2 TO 4 07/01/2024 N/A Encounters Encounter Location Date Provider Diagnosis [facility] [place] [address] [place] [address] [address] [place] [address] 07/01/2024 Fernando Carrillo Type 1 diabetes mellitus with diabetic polyneuropathy E10.42 and Tinea unguium B35.1 Assessments Encounter Date Diagnosis (ICD Code) Assessment Notes Treatment Notes Treatment Clinical Notes Section Notes 07/01/2024 Type 1 diabetes mellitus with diabetic polyneuropathy (ICD-10 - E10.42) 07/01/2024 Tinea unguium (ICD-10 - B35.1) Plan Of Treatment Pending Test Test Name Order Date 24024-SCHMBTO NAIL, 6 OR MORE 07/01/2024 02118-KPID SKIN LESIONS, 2 TO 4 07/01/20 24 Next Appt Details Follow Up: prn, Reason: Provider Name:Fernando Carrillo , 01/27/2025 01:00:00 PM, [address] [facility], [address] [facility], [place], [address], Procedure Notes * Category Sub-Category Detail Notes [...] of a nail nipper and/or dremel-type grinder gear, to a more viable healthy nail plate or bed tissue 6-10. Silver nitrate used for any petechial bleeding as necessary. Definitive antifungal treatment options have been reviewed and discussed with the patient. The patient chooses, no pharmaceutical tx - 57667 Keratoma Treatment Parring or Cutting o f Benign Hyperkeratotic Lesion(s) (-56) 2-4 Lesions - The Benign hyperkeratotic lesions, as described above were pared, and/or cut utilizing a sterile 15 blade, tissue nippers, and/or dremel - 65617 Progress Notes * Hardeep HOLGUIN LDOB: [birth year] (84 yo M)Acc No.[id number]:07/01/2024 Progress Note Patient:?Hardeep HOLGUIN Provider:?Fernando Carrillo DPM :1940???Age:84 Y???Sex:Male Parvez e:07/01/2024 Address:[address] [place] [address], [id number] Pcp:Rimma Pettit Subjective: * Chief Complaints: * [...] 08/13/21cataract surgery 12/2023 * Hospitalization/Major Diagno stic Procedure:?[facility] for foot [facility]-ER aug or sep 2012[facility]- foot pain oct jun or jul 2012[facility];bladder infection 10/2014[facility] 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[facility] lung infection 05/2019[facility] Anemia 09/2019[facility] covid 06/07/2021- 19 day [...] of unspecified site.? * Social History:?Tobacco Use:?Tobacco use other than [...] Orally Twice a day Albuterol Sulfate HFA Xiomyaglar FerniePen Carvedilol 3.125 MG Tablet 1 tablet with [...] Tablet 1 tablet Orally Once a day Trulicity Trelegy Ellipta 100-62.5-25 MCG/ACT Aerosol Powder Breath [...] 36.3, Shoe size:11, BS:89, Wt-k.76 kg. * ???Past Orders: Lab:HEMOGLOBIN A1C (GLYCOHEM OGLOBIN) * Collection Date 06/11/2024 12/01/2022 11/20/2018 Collection Time 03:20 PM Order Date 06/11/2024 12/01/2022 11/20/2018 HEMOGLOBIN A1C % (HH) 7.9 NR NR TOTAL HEMOGLOBIN (HGBA1C) NR NR 7.3 HEMOGLOBIN A1C (HH) NR 7.2 NR * Examination: ???Neurological: ?SENSORY:?Neurological exam demonstrates, reduced [...] 1 diabetes mellitus with diabetic polyneuropathy - E10.42???2.?Tinea unguium - B35.1??? Plan: * Treatment: * Procedures:?Debride Nail 6-10:?Nail debridement?Performance of this nail treatment by a nonprofessional would put this patients foot and overall health at risk. Therefore, nail debridement was performed extensively to reduce/remove overall nail length, girth, thickness, subungual debris, and necrotic tissue, by manual and/or electrical means through the use of a nail nipper and/or dremel-type grinder gear, to a more viable healthy nail plate or bed tissue 6-10. Silver nitrate used for any petechial bleeding as necessary. Definitive antifungal treatment options have been reviewed and discussed with the patient. The patient chooses, no pharmaceutical tx - 45137.?Keratoma Treatment:?Parring or Cutting of Benign Hyperkeratotic Lesion(s)?(-56) 2-4 Lesions - The Benign hyperkeratotic lesions, as described above were pared, and/or cut utilizing a sterile 15 blade, tissue nippers, and/or dremel - 60896.? * Procedure Codes:?63626 DEBRI DE NAIL, 6 OR MORE, Modifiers: XS 17937 TRIM SKIN LESIONS, 2 TO 4, Modifiers: XS * Follow Up:?prn * Images: * Sign off status: Completed true * Provider:?Fernando Carrillo DPM Date:?2023 Generated for Ramsey staley/Rubén/Pepito on:?09/20/2024 11:57 AM EST History and Physical Notes * [...]
--- OUTSIDE RECORDS SUMMARY | 2024-09-20 11:57 | XMS_ITS ---
Author Organization [facility] Address [address] [place] [address] Care Team Providers Care Entry Clerk Name Role Phone TRISTAN RESENDEZ Primary Care Provider [phone] REASON FOR VISIT [employer] MEDICATIONS Medication SIG (Take, Route, Fr equency, Duration) Notes Start Date End Date Status oxyCODONE HCl 5 MG 1 tablet as needed O rally twice a day for 15 days 08/19/2024 Active Encounters Encounter Location Date Provider Diagnosis [facility] [address] [place] [address] 08/16/2024 TRISTAN RESENDEZ PLAN OF TREATMENT Medication Medication Name Sig Start Date Stop Date Notes oxyCODONE HCl 5 MG 1 tablet as needed O rally twice a day for 15 days 08/19/2024 Next Appt Details Provider Name:TRISTAN RESENDEZ, 01/13/2025 11:45:00 AM, [address], [place], [address], Progress Notes * CHELSIEHardeepDOB: 2 (84 yo M)Acc No.[id number]:08/16/2024 Patient:??Hardeep HOLGUIN :1940?Age:84 Y?Sex:Kaci roberson Address:[place] [address] * Refills?? Refill oxyCODONE HCl Tablet, 5 MG, Orally, 30 Tablet, 1 tablet as needed, twice a day, 15 days, Refills=0 * true * Date:??
--- OUTSIDE RECORDS SUMMARY | 2024-09-20 11:57 | XMS_ITS | Encounter Summary ---
Author Organization [employer] [facility] Address [phone] [facility] [place] [address] Care Team Providers Care Vp Securities Name Role Phone Raheem Pettit MD Primary Care Provider Andrew Christopher MD Unavailable [phone] Patti Schilling MD Unavailable Epi Metzger MD Unavailable Otoniel Reyes MD Unavailable [phone] Encounter Details Date Type Department Care Team (Late st Contact Info) Description 01/20/2021 Procedure Pass [facility] [place] PERIOP DEPT [address] [place] [address] Social History Tobacco Use Types Packs/Day Years [...] st Contact Info) Description 05/03/2023 Procedure Pass [facility] Cardiology Division [address] [facility] [address] [place] [address] 08/02/2023 Procedure Pass [facility] Cardiology Division [address] [place] [address] [place] [address] 11/01/2023 Procedure Pass [facility] Cardiology Division [address] [place] [address] [place] [address] 04/30/2024 Procedure Pass [facility] Cardiology Division [address] [place] [address] [place] [address] 05/29/2024 Procedure Pass [facility] Cardiology Division [address] [place] [address] [place] [address] 08/01/2024 Procedure Pass [facility] Cardiology Division [address] [place] [address] [place] [address] 08/01/2024 Procedure Pass [facility] Cardiology Division [address] [place] [address] [place] [address] 10/30/2024 1:00 PM EST Appointment [facility] Cardiology Division [address] [place] [address] [place] [address] Osman Irene MD, MPH [address] [place] [address] [place] [address] [email or web address] 01/06/2025 10:00 AM EDT Appointment [address] [address] Igor Florian MD [address] [place] [address] [email or web address] 01/10/2025 12:15 PM EDT Office Visit [facility] Cardiology [address] [place] [place] [address] Franco Melendez MD, PhD [address] [place] [place] [address] [email or web address] 01/23/2025 11:40 AM EDT Office Visit [facility] [address] [place] 5[address] [place] [address] Igor Florian MD [address] [place] [address] [email or web address] 01/29/2025 11:45 AM EDT Appointment [facility] Cardiology Division [address] [place] [address] [address] Osman Irene MD, MPH [address] [facility] [address] [place] [address] [address] [email or web address] 04/30/2025 12:30 PM EDT Appointment [facility] Cardiology Division [address] [place] [address] [address] Osman Irene MD, MPH 55 [facility] [place] [address] [place] [address] [email or web address] 05/21/2025 1:20 PM EDT Office Visit [facility] [address] [address] Otoniel Bell MD [address] [place] [address] [email or web address] 06/04/2025 3:00 PM EDT Appointment [facility] Cardiac EP [address] [place] [address] [place] [address] Osman Irene MD, MPH [address] [facility] [address] [place] [address] [place] [address] [email or web address] 06/04/2025 3:30 PM EDT Office Visit [facility] Cardiac Arrhythmia Service [address] [place] [address] [place] [address] Osman Irene MD, MPH 55 [facility] [place] [address] [place] [address] [email or web address] documented as of this encounter Visit Diagnoses Not on filedocumented in this encounter Additional Health Concerns Infection Onset Date Last Indicated Resolved Time CoV-Exposed Comment:Exposed during encounter with HCW at [facility] 09/22/2021 09/28/2021 10/03/2021 2:[address] documented as of this encounter Care Teams Vp Securities Relationship Specialty Start Date End Date Raheem Pettit MD [address] [address] PCP - General Internal Medicine 05/17/17 Andrew Christopher MD [address] [address] Cardiology 06/21/17 Patti Schilling MD [address] [place] [address] Pulmonary Disease 06/21/17 Epi Metzger MD [address] [place] [address] Nephrology 06/21/17 Otoniel Reyes MD [address] [address] Cardiology 09/15/21 documented as of this encounter Additional Source Comments The information contained in this document represents components of the legal health record. It is not the complete legal health record.[facility]
--- OUTSIDE RECORDS SUMMARY | 2024-09-20 11:57 | XMS_ITS ---
Author Organization [facility] Address [address] [facility] [place] [address] Care Team Providers Care Meat Loiner Name Role Phone TRISTAN RESENDEZ Primary Care Provider REASON FOR VISIT Urine cx request Encounters Encounter Location Date Provider Diagnosis [facility] [address] [facility] [place] [address] 08/15/2024 TRISTAN RESENDEZ PLAN OF TREATMENT Next Appt Details Provider Name:TRISTAN RESENDEZ, 01/13/2025 11:45:00 AM, [address], [facility] [place], [address], Progress Notes * CHELSIEHardeep CAMACHODOB: 2 (84 yo M)Acc No.[id number]:08/15/2024 Patient:??Hardeep HOLGUIN :1940?Age:84 Y?Sex:Osiris roberson Address:[address], [place] [address] * true * Date:??
--- OUTSIDE RECORDS SUMMARY | 2024-09-20 11:57 | XMS_ITS | Encounter Summary ---
Author Organization [facility] Address [phone] [facility] [place] [address] Care Team Providers Care Box Sealing Machine Catcher Name Role Phone Raheem Pettit MD Primary Care Provider Andrew Christopher MD Unavailable [phone] Patti Schilling MD Unavailable Epi Metzger MD Unavailable Otoniel Reyes MD Unavailable [phone] Encounter Details Date Type Department Care Team (Late st Contact Info) Description 11/01/2023 Procedure Pass [facility] Cardiology Division [address] [place] [address] [place] [address] Social History Tobacco Use Types Packs/Day Years [...] st Contact Info) Description 05/03/2023 Procedure Pass [facility] Cardiology Division [address] [place] [address] [place] [address] 08/02/2023 Procedure Pass [facility] Cardiology Division [address] [place] [address] [place] [address] 11/01/2023 Procedure Pass [facility] Cardiology Division [address] [place] [address] [place] [address] 04/30/2024 Procedure Pass [facility] Cardiology Division [address] [place] [address] [place] [address] 05/29/2024 Procedure Pass [facility] Cardiology Division [address] [place] [address] [place] [address] 08/01/2024 Procedure Pass [facility] Cardiology Division [address] [place] [address] [place] [address] 08/01/2024 Procedure Pass [facility] Cardiology Division [address] [place] [address] [place] [address] 10/30/2024 1:00 PM EST Appointment [facility] Cardiology Division [address] [place] [address] [place] [address] Osman Irene MD, MPH 55 [facility] [address] [place] [address] [email or web address] 01/06/2025 10:00 AM EDT Appointment [address] [address] Igor Florian MD 55 [facility] [address]K 4 [place] [address] [email or web address] 01/10/2025 12:15 PM EDT Office Visit [facility] Cardiology [address] [place] [address] [place] [address] Franco Melendez MD, PhD [address] [address] [email or web address] 01/23/2025 11:40 AM EDT Office Visit [facility] [address] [facility] [address] [facility] 5th [place] [address] Igor Florian MD 55 [facility] 4 [place] [address] [email or web address] 01/29/2025 11:45 AM EDT Appointment [facility] Cardiology Division [address] [facility] [address] [place] [address] Osman Irene MD, MPH [address] [place] [address] [email or web address] 04/30/2025 12:30 PM EDT Appointment [facility] Cardiology Division [address] [facility] [address] [place] [address] Osman Irene MD, MPH [address] [place] [address] [email or web address] 05/21/2025 1:20 PM EDT Office Visit [facility] [address] [address] Otoniel Bell MD [address] [place] [address] [email or web address] 06/04/2025 3:00 PM EDT Appointment [facility] Cardiac EP [address] [facility] [address] [place] [address] [place] [address] Osman Irene MD, MPH [address] [address] 06/04/2025 3:30 PM EDT Office Visit [facility] Cardiac Arrhythmia Service [address] [address] Osman Irene MD, MPH [address] [place] [address] [email or web address] documented as of this encounter Visit Diagnoses Not on filedocumented in this encounter Care Teams Box Sealing Machine Catcher Relationship Specialty Start Date End Date Raheem Pettit MD [address] [place] [address] PCP - General Internal Medicine 05/17/17 Andrew Christopher MD [address] [place] [address] Cardiology 06/21/17 Patti Schilling MD [address] [place] [address] Pulmonary Disease 06/21/17 Epi Metzger MD [address] [place] [address] Nephrology 06/21/17 Otoniel Reyes MD [address] [address] Cardiology 09/15/21 documented as of this encounter Additional Source Comments The information contained in this document represents components of the legal health record. It is not the complete legal health record.[facility]
--- OUTSIDE RECORDS SUMMARY | 2024-09-20 11:57 | XMS_ITS | Encounter Summary ---
Author Organization [employer] [facility] Address [phone] Formerly [facility] [place] [address] Care Team Providers Care Young Adult Librarian Name Role Phone Raheem Pettit MD Primary Care Provider [phone] Andrew Christopher MD Unavailable Patti Schilling MD Unavailable Epi Metzger MD Unavailable Otoniel Reyes MD Unavailable [phone] Encounter Details Date Type Department Care Team (Late st Contact Info) Description 02/22/2024 Procedure Pass [facility] PERIOPERATIVE DEPT [address] [place] [phone] Social History Tobacco Use Types Packs/Day [...] Contact Info) Description 05/03/2023 Procedure Pass [facility] Cardiology Division [address] [place] Eduardo [address] [place] [address] 08/02/2023 Procedure Pass [facility] Cardiology Division [address] [place] Eduardo [address] [place] [address] 11/01/2023 Procedure Pass [facility] Cardiology Division [address] [place] [address] [place] [address] 04/30/2024 Procedure Pass [facility] Cardiology Division [address] [place] Eduardo [address] [place] [address] 05/29/2024 Procedure Pass [facility] Cardiology Division [address] [place] Eduardo [address] [place] [address] 08/01/2024 Procedure Pass [facility] Cardiology Division [address] [place] [address] [place] [address] 08/01/2024 Procedure Pass [facility] Cardiology Division [address] [place] [address] [place] [address] 10/30/2024 1:00 PM EST Appointment [facility] Cardiology Division [address] [place] [address] [place] [address] Osman Irene MD, MPH 55 [facility] [place] [address] [place] [address] [email or web address] 01/06/2025 10:00 AM EDT Appointment [facility] 30 [place] [address] Igor Florian MD [address] [address] [email or web address] 01/10/2025 12:15 PM EDT Office Visit [facility] Cardiology [address] [place] [address] [place] [address] Franco Melendez MD, PhD [address] [facility] [address] [address] [email or web address] 01/23/2025 11:40 AM EDT Office Visit [facility] [address] [address] Igor Florian MD [address] [place] [address] [email or web address] 01/29/2025 11:45 AM EDT Appointment [facility] Cardiology Division [address] [place] [address] [address] Osman Irene MD, MPH [address] [place] [address] [email or web address] 04/30/2025 12:30 PM EDT Appointment [facility] Cardiology Division [address] [place] [address] [address] Osman Irene MD, MPH [address] [place] [address] [email or web address] 05/21/2025 1:20 PM EDT Office Visit [facility] [address] [address] Otoniel Bell MD 243 [place] [address] [email or web address] 06/04/2025 3:00 PM EDT Appointment [facility] Cardiac EP [address] [address] Osman Irene MD, MPH [address] [address] 06/04/2025 3:30 PM EDT Office Visit [facility] Cardiac Arrhythmia Service [address] [place] [address] Osman Irene MD, MPH [address] [place] [address] [email or web address] documented as of this encounter Visit Diagnoses Not on filedocumented in this encounter Care Teams Young Adult Librarian Relationship Specialty Start Date End Date Raheem Pettit MD [address] [place] [address] PCP - General Internal Medicine 05/17/17 Andrew Christopher MD [address] [place] [address] Cardiology 06/21/17 Patti Schilling MD [address] [place] [address] Pulmonary Disease 06/21/17 Epi Metzger MD [address] [place] [address] Nephrology 06/21/17 Otoniel Reyes MD [address] [place] [address] Cardiology 09/15/21 documented as of this encounter Additional Source Comments The information contained in this document represents components of the legal health record. It is not the complete legal health record.[facility]
--- OUTSIDE RECORDS SUMMARY | 2024-09-20 11:57 | XMS_ITS | Encounter Summary ---
Author Organization [facility] Address [phone] [facility] [place] [address] Care Team Providers Care Wet Roller Name Role Phone Raheem Pettit MD Primary Care Provider Andrew Christopher MD Unavailable [phone] Patti Schilling MD Unavailable [phone] Epi Metzger MD Unavailable tOoniel Reyes MD Unavailable [phone] Encounter Details Date Type Department Care Team (Late st Contact Info) Description 01/09/2024 Procedure Pass [facility] [place] PERIOP DEPT [address] [place] [phone] Social History Tobacco Use Types Packs/Day Years [...] st Contact Info) Description 05/03/[address] [facility] Cardiology Division [address] [place] Edu[address] [place] [address] 08/02/[address] [facility] Cardiology Division [address] [place] [address] [place] [address] 11/01/[address] [facility] Cardiology Division [address] [place] Edu[address] [place] [address] 04/30/[address] [facility] Cardiology Division [address] [place] [address] [place] [address] 05/29/[address] [facility] Cardiology Division [address] [place] [address] [place] [address] 08/01/[address] [facility] Cardiology Division [address] [place] Edu[place] [address] [place] [address] 08/01/[address] [facility] Cardiology Division [address] [place] [address] [place] [address] 10/30/2024 1:00 PM EST Appointment [facility] Cardiology Division [address] [place] [address] [place] [address] Osman Irene MD, MPH [address] [place] [address] [place] [address] [email or web address] 01/06/2025 10:00 AM EDT Appointment [facility] 30 [place] [address] Igor Florian MD [address] [address] [email or web address] 01/10/2025 12:15 PM EDT Office Visit [facility] Cardiology [address] [place] [address] [place] [address] Franco Melendez MD, PhD [address] [address] [email or web address] 01/23/2025 11:40 AM EDT Office Visit [facility] [address] [address] Igor Florian MD [address] [address] [email or web address] 01/29/2025 11:45 AM EDT Appointment [facility] Cardiology Division [address] [place] [address] [address] Osman Irene MD, MPH [address] [place] [address] [email or web address] 04/30/2025 12:30 PM EDT Appointment [facility] Cardiology Division [address] [place] [address] [address] Osman Irene MD, MPH [address] [place] [address] [email or web address] 05/21/2025 1:20 PM EDT Office Visit [facility] [address] [address] Otoniel Bell MD [address] [place] [address] [email or web address] 06/04/2025 3:00 PM EDT Appointment [facility] Cardiac EP [address] [address] Osman Irene MD, MPH [address] [address] 06/04/2025 3:30 PM EDT Office Visit [facility] Cardiac Arrhythmia Service [address] [place] [address] Osman Irene MD, MPH [address] [place] [address] [email or web address] documented as of this encounter Visit Diagnoses Not on filedocumented in this encounter Care Teams Wet Roller Relationship Specialty Start Date End Date Raheem Pettit MD [address] [place] [address] PCP - General Internal Medicine 05/17/17 Andrew Christopher MD [address] [place] [address] Cardiology 06/21/17 Patti Schilling MD [address] [place] [address] Pulmonary Disease 06/21/17 Epi Metzger MD [address] [place] [address] Nephrology 06/21/17 Otoniel Reyes MD [address] [place] [address] Cardiology 09/15/21 documented as of this encounter Additional Source Comments The information contained in this document represents components of the legal health record. It is not the complete legal health record.[facility]
--- OUTSIDE RECORDS SUMMARY | 2024-09-20 11:58 | XMS_ITS | Encounter Summary ---
Author Organization [facility] Address [phone] [address] [place] [address] Care Team Providers Care Tuber Machine Operator Helper Name Role Phone Raheem Pettit MD Primary Care Provider Andrew Christopher MD Unavailable [phone] Patti Schilling MD Unavailable Epi Metzger MD Unavailable [phone] Otoniel Reyes MD Unavailable [phone] Encounter Details Date Type Department Care Team (Late st Contact Info) Description 04/30/2024 Procedure Pass [facility] Cardiac EP [address] [place] [place] [address] Social History Tobacco Use Types Packs/Day Years [...] [facility] [place] Cardiology Division [address] [place] Eduardo [address] [place] [address] 08/02/2023 Procedure Pass [facility] Cardiology Division [address] [place] Eduardo [address] [place] [address] 11/01/2023 Procedure Pass [facility] Cardiology Division [address] [place] Edu[place] [address] [place] [address] 04/30/2024 Procedure Pass [facility] Cardiology Division [address] [place] Edu[place] [address] [place] [address] 05/29/2024 Procedure Pass [facility] Cardiology Division [address] [place] Eduardo [address] [place] [address] 08/01/2024 Procedure Pass [facility] Cardiology Division [address] [place] Eduardo [address] [place] [address] 08/01/2024 Procedure Pass [facility] Cardiology Division [address] [place] Edu[place] [address] [place] [address] 10/30/2024 1:00 PM EST Appointment [facility] Cardiology Division [address] [place] Edu[place] [address] [place] [address] Osman Irene MD, MPH [address] [place] [place] [address] [email or web address] 01/06/2025 10:00 AM EDT Appointment [facility] 30 [place] [address] Igor Florian MD [address] [address] [email or web address] 01/10/2025 12:15 PM EDT Office Visit [facility] Cardiology [address] [place] [address] [place] [address] Franco Melendez MD, PhD [address] [address] [email or web address] 01/23/2025 11:40 AM EDT Office Visit [facility] [address] [address] Igor Florian MD [address] [address] [email or web address] 01/29/2025 11:45 AM EDT Appointment [facility] Cardiology Division [address] [place] [address] [address] Osman Irene MD, MPH [address] [place] [address] [email or web address] 04/30/2025 12:30 PM EDT Appointment [facility] Cardiology Division [address] [place] [address] [address] Osman Irene MD, MPH [address] [place] [address] [email or web address] 05/21/2025 1:20 PM EDT Office Visit [facility] [address] [address] Otoniel Bell MD [address] [place] [address] [email or web address] [email or web address] [email or web address] 06/04/2025 3:00 PM EDT Appointment [facility] Cardiac EP [address] [address] Osman Irene MD, MPH [address] [address] 06/04/2025 3:30 PM EDT Office Visit [facility] Cardiac Arrhythmia Service [address] [place] [address] Osman Irene MD, MPH [address] [place] [address] [email or web address] documented as of this encounter Visit Diagnoses Not on filedocumented in this encounter Care Teams Tuber Machine Operator Helper Relationship Specialty Start Date End Date Raheem Pettit MD [address] [place] [address] PCP - General Internal Medicine 05/17/17 Andrew Christopher MD [address] [place] [address] Cardiology 06/21/17 Patti Schilling MD [address] [place] [address] Pulmonary Disease 06/21/17 Epi Metzger MD [address] [place] [address] Nephrology 06/21/17 Otoniel Reyes MD [address] [place] [address] Cardiology 09/15/21 documented as of this encounter Additional Source Comments The information contained in this document represents components of the legal health record. It is not the complete legal health record.[facility]
--- OUTSIDE RECORDS SUMMARY | 2024-09-20 11:58 | XMS_ITS | Encounter Summary ---
Author Organization [employer] [facility] Address [phone] [place] [address] Care Team Providers Care Eye Dropper Assembler Name Role Phone Raheem Pettit MD Primary Care Provider Andrew Christopher MD Unavailable Patti Schilling MD Unavailable [phone] Epi Metzger MD Unavailable [phone] Otoniel Reyes MD Unavailable [phone] Encounter Details Date Type Department Care Team (Late st Contact Info) Description 06/15/2020 Procedure Pass [facility] - MRI, [address] [address] Social History Tobacco Use Types Packs/Day Years Used Date Smoking Tobacco: Former Cigarettes 3 20 1 965 - 1984 Smokeless Tobacco: Never Alcohol Use Standard Drinks/Week Comments Yes 0 (1 standard drink = 0.6 oz pur e alcohol) in 1970-80's many drinks/ day Sex and Gender Information Value Date Recorded Sex Assigned at Male 06/12/2020 12:53 PM EDT Gender Identity Male 06/12/2020 12:53 PM EDT Sexual Orientation Straight 09/01/2020 3: 10 PM EST documented as of this encounter Plan of Treatment Upcoming Encounters Date Type Department Care Team (Late st Contact Info) Description 05/03/2023 Procedure Pass [facility] Cardiology Division [address] [place] [address] [place] [address] 08/02/2023 Procedure Pass [facility] Cardiology Division [address] [place] [address] [place] [address] 11/01/2023 Procedure Pass [facility] Cardiology Division [address] [place] [address] [place] [address] 04/30/2024 Procedure Pass [facility] Cardiology Division [address] [place] [address] [place] [address] 05/29/2024 Procedure Pass [facility] Cardiology Division [address] [place] Edu[address] [place] [address] 08/01/2024 Procedure Pass [facility] Cardiology Division [address] [place] Eduardo [address] [place] [address] 08/01/2024 Procedure Pass [facility] Cardiology Division [address] [place] [address] [place] [address] 10/30/2024 1:00 PM EST Appointment [facility] Cardiology Division [address] [place] [address] [place] [address] Osman Irene MD, MPH [address] [place] [address] [place] [address] [email or web address] 01/06/2025 10:00 AM EDT Appointment [address] [address] Igor Florian MD [address] BLK 4 [place] [address] [email or web address] 01/10/2025 12:15 PM EDT Office Visit [facility] Cardiology [address] [place] [address] [place] [address] Franco Melendez MD, PhD [address] [place] [address] [place] [address] [email or web address] 01/23/2025 11:40 AM EDT Office Visit [facility] [address] [place] 5[address] [place] [address] Igor Florian MD [address] BLK 4 [place] [address] [email or web address] 01/29/2025 11:45 AM EDT Appointment [facility] Cardiology Division [address] [place] [address] [address] Osman Irene MD, MPH 55 [facility] [place] [address] [place] [address] [email or web address] 04/30/2025 12:30 PM EDT Appointment [facility] Cardiology Division [address] [place] [address] Osman Irene MD, MPH 55 [facility] [place] [address] [place] [address] [email or web address] 05/21/2025 1:20 PM EDT Office Visit [facility] [address] [address] Otoniel Bell MD [address] [place] [address] [email or web address] 06/04/2025 3:00 PM EDT Appointment [facility] Cardiac EP [address] [place] [address] [place] [address] Osman Irene MD, MPH [address] [facility] [address] [place] [address] [address] [email or web address] 06/04/2025 3:30 PM EDT Office Visit [facility] Cardiac Arrhythmia Service [address] [place] [address] [place] [address] Osman Irene MD, MPH 55 [facility] [place] [address] [place] [address] [email or web address] documented as of this encounter Visit Diagnoses Not on filedocumented in this encounter Additional Health Concerns Infection Onset Date Last Indicated Resolved Time CoV-Exposed Comment:Exposed during encounter with HCW at [facility] 09/22/2021 09/28/2021 10/03/2021 2:[address] documented as of this encounter Care Teams Eye Dropper Assembler Relationship Specialty Start Date End Date Raheem Pettit MD [address] [address] PCP - General Internal Medicine 05/17/17 Andrew Christopher MD [address] [place] [address] Cardiology 06/21/17 Patti Schilling MD [address] [place] [address] Pulmonary Disease 06/21/17 Epi Metzger MD [address] [place] [address] Nephrology 06/21/17 Otoniel Reyes MD [address] [address] Cardiology 09/15/21 documented as of this encounter Additional Source Comments The information contained in this document represents components of the legal health record. It is not the complete legal health record.[facility]
--- OUTSIDE RECORDS SUMMARY | 2024-09-20 11:58 | XMS_ITS | Encounter Summary ---
Author Organization [facility] Address [phone] [address] [place] [address] Care Team Providers Care Hand Weaver Name Role Phone Raheem Pettit MD Primary Care Provider Andrew Christopher MD Unavailable Patti Schilling MD Unavailable Epi Metzger MD Unavailable [phone] Otoniel Reyes MD Unavailable Encounter Details Date Type Department Care Team (Late st Contact Info) Description 06/15/2020 Procedure Pass [facility] - MRI, [address] [address] Social History Tobacco Use Types Packs/Day Years [...] st Contact Info) Description 05/03/2023 Procedure Pass [facility] [address] [place] [address] [place] [address] 08/02/2023 Procedure Pass [facility] [address] [place] [address] [place] [address] 11/01/2023 Procedure Pass [facility] [address] [place] [address] [place] [address] 04/30/2024 Procedure Pass [facility] [address] [place] [address] [place] [address] 05/29/2024 Procedure Pass [facility] [address] [place] [address] [place] [address] 08/01/2024 Procedure Pass [facility] [address] [place] [address] [place] [address] 08/01/2024 Procedure Pass [facility] [address] [place] [address] [place] [address] 10/30/2024 1:00 PM EST Appointment [facility] [address] [place] [address] [place] [address] Osman Irene MD, MPH [address] [place] [address] [place] [address] [email or web address] 01/06/2025 10:00 AM EDT Appointment [address] [address] Igor Florian MD [address]K [address] [place] [address] [email or web address] 01/10/2025 12:15 PM EDT Office Visit [facility] Cardiology [address] [place] [address] Franco Melendez MD, PhD [address] [place] [address] [email or web address] 01/23/2025 11:40 AM EDT Office Visit [facility] [address] [place] 5[address] [place] [address] Igor Florian MD [address]K [address] [place] [address] [email or web address] 01/29/2025 11:45 AM EDT Appointment [facility] [address] [place] [address] [address] Osman Irene MD, MPH [facility] [place] [address] [place] [address] [email or web address] 04/30/2025 12:30 PM EDT Appointment [facility] Cardiology Division [address] [place] [address] Osman Irene MD, MPH [facility] [place] [address] [place] [address] [email or web address] 05/21/2025 1:20 PM EDT Office Visit [facility] [address] [address] Otoniel Bell MD [address] [place] [address] [email or web address] 06/04/2025 3:00 PM EDT Appointment [facility] Cardiac EP [address] [place] [address] [place] [address] Osman Irene MD, MPH [address] [facility] [address] [place] [address] [address] [email or web address] 06/04/2025 3:30 PM EDT Office Visit [facility] Card[facility] Arrhythmia Service [address] [place] [address] [place] [address] Osman Irene MD, MPH [facility] [place] [address] [place] [address] [email or web address] documented as of this encounter Visit Diagnoses Not on filedocumented in this encounter Additional Health Concerns Infection Onset Date Last Indicated Resolved Time CoV-Exposed Comment:Exposed during encounter with HCW at [facility] 09/22/2021 09/28/2021 10/03/2021 2:[address] documented as of this encounter Care Teams Hand Weaver Relationship Specialty Start Date End Date Raheem Pettit MD [address] [address] PCP - General Internal Medicine 05/17/17 Andrew Christopher MD [address] [place] [address] Cardiology 06/21/17 Patti Schilling MD [address] [place] [address] Pulmonary Disease 06/21/17 Epi Metzger MD [address] [place] [address] Nephrology 06/21/17 Otoniel Reyes MD [address] [address] Cardiology 09/15/21 documented as of this encounter Additional Source Comments The information contained in this document represents components of the legal health record. It is not the complete legal health record.[facility]
--- OUTSIDE RECORDS SUMMARY | 2024-09-20 11:58 | XMS_ITS | Patient Health Record ---
Author Organization [facility] Address [address] [facility] [place] [address] Care Team Providers Care Composition Molder Name Role Phone Rimma Pettit Primary Care Provider Fernando Diane Unavailable [phone] Black, Kassidy Unavailable [phone] Pericbreanna Dana Unavailable [phone] Allergies Allergen (clinical drug ingredient) Drug/Non Drug Allergy documented on EMR Reaction Allergy Type Onset Date Status amoxicillin Amoxicillin rash, skin peeling Drug Allergy Active Doxycycline Calcium Reaction Drug Allergy Active Results Component Value Reference Range Notes HEMOGLOBIN A1C (GLYCOHEMOGLO BIN) Reviewed date:09/19/2024 03:21:25 PM Interpretation: Performing Lab: Notes/Report: HEMOGLOBIN A1C % (HH) 7.9 Reason For Referral No Information Medications Medication SIG (Take, Route, Frequency, Duration) Notes Start Date End Date Status Trulicity Active Torsemide 40 MG 1 tablet Orally Once a day Active Montelukast Sodium 10 MG 1 tablet Orally Once a day Active Singulair 10 MG 1 tablet in the evening Orally Once a day for 30 day(s) Not-Taking Metoprolol Succinate ER 25 MG 1 tablet Orally Once a day Active Spiriva HandiHaler 18 MCG 1 capsule Inhalation Once a day Not-Taking Empagliflozin 10 MG 1 tablet Orally Once a day Active Advair Diskus 500-50 MCG/DOSE 1 puff Inhalation Twice a day Not-Taking Eliquis 2.5 MG 1 tablet Orally Twice a day Active Xarelto 20 MG 1 tablet Orally Once a day Not-Taking Simvastatin 40 MG 1 tablet in the evening Orally Once a day for 30 day(s) Active Lisinopril 20 MG 1 tablet Orally Once a day Not-Taking NovoLOG FlexPen Acti ve AndroGel 2 pumps per arm each day Not-Taking NovoLOG 100 UNIT/ML Subcutaneous Active Fluticasone Propionate Not-Taking Nitrostat 0.4 MG 1 tablet under the tongue and allow to dissolve as needed Sublingual every 0 hrs Active Klor-Con M10 Not-Doug ing Aspirin 81 MG 1 tablet Orally Once a day for 30 day(s) Not-Taking Glimepiride 4 MG 1 tablet with breakfast or the first main meal of the day Orally Once a day for 30 day(s) Not-Taking Clindamycin HCl 300 MG 2 capsules Orally every 8 hrs Active Carvedilol 3.125 MG 1 tablet with food Orally Twice a day Active Basaglar KwikPen Act marlon Metoprolol Succinate ER 50 MG 1 tablet Orally Once a day for 30 day(s) Not-Taking ProAir HFA 108 (90 Base) MCG/ACT [...] Once a day for 30 day(s) Not-Taking Albuterol Sulfate HFA Active Furosemide 40 MG 1 tablet Orally Once a day twice a day Not-Taking Apixaban 2.5 MG 1 tablet Orally Twice a day Active Vitamin D Not-Taking Allopurinol 300 MG 1 tablet Orally Once a day Active Magnesium Not-Taking Qnasl 80 MCG/ACT 2 puffs in each nostril Nasally Once a day for 30 day(s) Not-Taking Trelegy Ellipta 100-62.5-25 MCG/ACT 1 puff Inhalation Once a day Active HumaLOG KwikPen 32 units as directed Subcutaneous Not-Taking Lantus SoloStar 74units 0.02 ml Subcutaneous Once a day for 30 day(s) Not-Taking Calcium Not-Taking Immunizations Vaccine Route Administration Date Status Comme nts COVID-19 Pfizer BioNTTemptster Vaccine Unknown 11/01/2020 Administered 1st vaccine Influenza Unknown 06/09/2015 Administered Influenza Unknown 06/07/2016 Administered Influenza Unknown 09/01/2017 Administered Influenza Unknown 06/26/2018 Administered Influenza Unknown 05/17/2019 Administered Influenza Unknown 06/19/2020 Administered Influenza Unknown 06/10/2022 Administered Social History Tobacco Use: Social History Observation Description Date Details (start date - stop date) Never Smoker NA - NA Alcohol Screen Question Answer Notes Did you have a drink containing alcohol in the p ast year? 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 Vital Signs Blood pressure diastolic 69 mm Hg 09/19/2024 Height 5 ft 10 in in 09/19/2024 Blood pressure systolic 132 mm Hg 09/19/2024 Weight 258.2 lbs 09/19/2024 BMI 37.04 kg/m2 09/19/2024 Procedures Procedure Date Ordered Date Performed Result Body Sit e 10403-MFXUPYL NAIL, 6 OR MORE 04/03/2024 N/A 50909-BMRL SKIN LESIONS, 2 TO 4 04/03/2024 N/A 13235-SUJASQN NAIL, 6 OR MORE 07/01/2024 N/A 36352-YPWU SKIN LESIONS, 2 TO 4 07/01/2024 N/A 65204-ZPRGMMK NAIL, 6 OR MORE 09/19/2024 N/A 14533-CNTA SKIN LESIONS, 2 TO 4 09/19/2024 N/A Encounters Encounter Location Date Provider Diagnosis [facility] [address] 12/21/2023 Dana Barker Type 1 diabetes mellitus with diabetic polyneuropathy E10.42 ; Other hammer toe(s) (acquired), right foot M20.41 ; Tinea unguium B35.1 and Other hammer toe(s) (acquired), left foot M20.42 [facility] [address] [address] 04/03/2024 [place] SunGerardo Type 1 diabetes mellitus with diabetic polyneuropathy E10.42 and Tinea unguium B35.[address] [address] 07/01/2024 [place] SunGreardo Type 1 diabetes mellitus with diabetic polyneuropathy E10.42 and Tinea unguium B35.[address] [address] 09/19/2024 [place] SunGerardo Type 1 diabetes mellitus with diabetic polyneuropathy E10.42 and Tinea unguium B35.[address] [address] 12/21/2023 Kassidy Gonzalez Assessments Encounter Date Diagnosis (ICD Code) Assessment [...] E10.42) 07/01/2024 Tinea unguium (ICD-10 - B35.1) 09/19/2024 Type 1 diabetes mellitus with diabetic polyneuropathy (ICD-10 - E10.42) 09/19/2024 Tinea unguium (ICD-10 - B35.1) 12/21/2023 Tinea unguium (ICD-10 - B35.1) 12/21/2023 Other hammer toe(s) (acquired), left foot (ICD-10 - M20.42) Plan Of Treatment Pending Test Test Name Order Date 11211-YWRRXNX NAIL, 6 OR MORE 02/07/2013 52757-CQLFQBF NAIL, 6 OR MORE 05/09/2013 42430-RJLVFJR NAIL, 6 OR MORE 08/08/2013 88002-GRJVCBH NAIL, 6 OR MORE 01/23/2014 26655-GQAEYRW NAIL, 6 OR MORE 04/25/2014 42387-SVGRCBW NAIL, 6 OR MORE 07/22/2014 50988-STOEKER NAIL, 6 OR MORE 01/13/2015 05123-WRFBSXW NAIL, 6 OR MORE 04/17/2015 36465-KWBHVVH NAIL, 6 OR MORE 07/17/2015 23770-PZZVVJG NAIL, 6 OR MORE 10/22/2015 10012-BOBVCHO NAIL, 6 OR MORE 01/12/2016 38998-CGMCMPJ NAIL, 6 OR MORE 04/22/2016 15446-WESEVRT NAIL, 6 OR MORE 01/13/2017 45010-LRFAZFU NAIL, 6 OR MORE 04/14/2017 12674-DIATVSR NAIL, 6 OR MORE 07/01/2016 52558-VFARAGL NAIL, 6 OR MORE 07/04/2017 29888-ABKVBTK NAIL, 6 OR MORE 09/05/2017 82494-XQUQAYO NAIL, 6 OR MORE 11/14/2017 42118-HYDFYFG NAIL, 6 OR MORE 01/16/2018 07878-NQEJDXP NAIL, 6 OR MORE 03/23/2018 62832-FSKPXHT NAIL, 6 OR MORE 05/25/2018 53153-ALXJEIR NAIL, 6 OR MORE 07/27/2018 64190-RZXNOMA NAIL, 6 OR MORE 10/02/2018 00148-QUUDVCC NAIL, 6 OR MORE 12/04/2018 87625-PCEIBOL NAIL, 6 OR MORE 02/05/2019 91428-NZWMMMA NAIL, 6 OR MORE 04/12/2019 43092-IMLWRJS NAIL, 6 OR MORE 06/18/2019 55774-PKAWFKZ NAIL, 6 OR MORE 09/03/2019 73099-YMLRPRM NAIL, 6 OR MORE 11/05/2019 52490-VHIUYHE NAIL, 6 OR MORE 01/14/2020 50128-RCBPIDF NAIL, 6 OR MORE 03/17/2020 51444-GITGEDP NAIL, 6 OR MORE 05/08/2020 29430-RVOVLBH NAIL, 6 OR MORE 07/10/2020 55195-IIDXLCQ NAIL, 6 OR MORE 09/23/2020 92981-NMXBXUD NAIL, 6 OR MORE 11/25/2020 08797-MTFTGIV NAIL, 6 OR MORE 01/27/2021 28291-TMEKDYQ NAIL, 6 OR MORE 04/09/2021 76521-XOFUHGR NAIL, 6 OR MORE 06/22/2021 72986-WFGQWEI NAIL, 6 OR MORE 08/25/2021 97747-TZIRWQJ NAIL, 6 OR MORE 10/29/2021 83357-TUIFZNY NAIL, 6 OR MORE 12/31/2021 16667-EKRSDEG NAIL, 6 OR MORE 03/08/2022 88374-BAHORBV NAIL, 6 OR MORE 05/10/2022 68356-EBCBBZU NAIL, 6 OR MORE 07/26/2022 39832-VNONFIO NAIL, 6 OR MORE 01/27/2023 14447-AGARJFX NAIL, 6 OR MORE 04/12/2023 16157-ZFPJVIK NAIL, 6 OR MORE 06/16/2023 78098-KMAQYXH NAIL, 6 OR MORE 04/03/2024 04950-JOKEGPX NAIL, 6 OR MORE 07/01/2024 88722-OMEKMCQ NAIL, 6 OR MORE 09/19/2024 67280-Arknrtnf Plate 06/22/2021 37547-Aswjmjle Plate 03/17/2020 68946-Iztdrcdg Plate 02/05/2019 03408-Bplwqkgs Plate 04/14/2017 04058-Rskmiblz Plate 04/17/2015 55360-Musknkhg Plate 01/13/2015 37845-Xsuanijl Plate 07/22/2014 80026-Mavqjwdg Plate 04/25/2014 47846-Aiupbtwr Plate 01/23/2014 27700- Debride <25 sq cm 01/27/2021 12605-DKNK SKIN LESIONS, OVER 4 04/09/20 21 87034-XTHS SKIN LESIONS, OVER 4 01/28/20 21 65071-HMMU SKIN LESIONS, OVER 4 11/26/19 21 13244-SYRA SKIN LESIONS, OVER 4 09/23/19 21 29233-IHNN SKIN LESIONS, OVER 4 06/22/20 21 36978-CGSK SKIN LESIONS, OVER 4 08/25/20 21 66610-WAYS SKIN LESIONS, OVER 4 01/01/20 22 32662-DQLS SKIN LESIONS, OVER 4 10/30/19 22 69000-AHVH SKIN LESIONS, OVER 4 06/16/20 23 61816-KHOC SKIN LESIONS, OVER 4 04/12/20 23 09007-OMHC SKIN LESIONS, OVER 4 01/28/20 23 93071-OTUQ SKIN LESIONS, OVER 4 07/26/20 22 89826-LCTD SKIN LESIONS, OVER 4 05/10/20 20581-QCXE SKIN LESIONS, OVER 4 03/08/20 60424-EIMR SKIN LESIONS, OVER 4 01/14/20 15 94786-WEVP SKIN LESIONS, OVER 4 07/17/20 15 89548-GINB SKIN LESIONS, OVER 4 10/22/19 16 55290-TQDM SKIN LESIONS, OVER 4 01/12/20 16 30359-JFVN SKIN LESIONS, OVER 4 04/14/20 17 08658-UDOI SKIN LESIONS, OVER 4 07/04/20 17 44991-MRWW SKIN LESIONS, OVER 4 09/05/19 18 17861-ZFOG SKIN LESIONS, OVER 4 07/01/20 16 51038-VRZK SKIN LESIONS, OVER 4 01/14/20 17 10642-MIRM SKIN LESIONS, OVER 4 02/06/20 19 27638-MKUS SKIN LESIONS, OVER 4 12/05/19 19 79775-JMZQ SKIN LESIONS, OVER 4 10/02/19 19 26338-TYKL SKIN LESIONS, OVER 4 07/27/20 18 50652-VYSN SKIN LESIONS, OVER 4 05/25/20 18 15739-ZKZR SKIN LESIONS, OVER 4 03/23/20 18 58978-UQPD SKIN LESIONS, OVER 4 01/17/20 18 89791-DTHN SKIN LESIONS, OVER 4 11/15/19 18 10856-CNYT SKIN LESIONS, OVER 4 03/17/20 20 23537-XOTC SKIN LESIONS, OVER 4 01/14/20 20 77348-LVPX SKIN LESIONS, OVER 4 07/10/20 20 73394-URVM SKIN LESIONS, OVER 4 05/08/20 99355-VRPW SKIN LESIONS, OVER 4 11/05/19 20 79463-ZKNR SKIN LESIONS, OVER 4 09/03/19 20 68105-UGKL SKIN LESIONS, OVER 4 06/18/20 19 89788-IZHG SKIN LESIONS, OVER 4 04/12/20 19 99170-ULQY SKIN LESIONS, 2 TO 4 04/22/20 16 72448-SJPH SKIN LESIONS, 2 TO 4 04/17/20 15 24236-XRYS SKIN LESIONS, 2 TO 4 04/25/20 14 44201-ICPD SKIN LESIONS, 2 TO 4 07/22/20 14 19549-KRRU SKIN LESIONS, 2 TO 4 02/08/20 13 83717-PABY SKIN LESIONS, 2 TO 4 01/24/20 14 97137-YMAJ SKIN LESIONS, 2 TO 4 08/08/20 13 30053-LDBR SKIN LESIONS, 2 TO 4 05/09/20 13 76550-LHIC SKIN LESIONS, 2 TO 4 07/01/20 24 03900-IAXO SKIN LESIONS, 2 TO 4 04/03/20 24 24902-EFLX SKIN LESIONS, 2 TO 4 09/19/19 25 Next Appt Details Provider Name:Fernando Carrillo , 01/27/2025 01:00:00 PM, [address] [facility], [address], [place], [address], Insurance Providers Payer Name Payer Address Payer Phone Subscriber Number Group Number Insured Name Patient Relationship to Insured Coverage Start Date Coverage End Date Medicare National [employer]t [employer] [address] [place] [address] [id number] Hardeep Barker Self - [facility] the [facility] [address] [place] [address] [phone] [id number] Hardeep Barker Self - patient is [...] History Reason Date(Month/Year) [facility] Bro[facility] pacemaker 08/2022 [facility]- 19 day stay, heart procedure [facility] covid 06/07/2021 [facility] Anemia 09/2019 [facility] infection 05/2019 [facility] Right knee replacement 10/27 02/12 [facility];bladder infection [facility]- foot pain mayJul 2012 [facility] for foot pain-ER aug or sep 2012
--- OUTSIDE RECORDS SUMMARY | 2024-09-20 12:00 | XMS_ITS | Continuity of Care Document ---
Author Organization [facility] Address [address] [place] [address]- Care Team Providers Care Social Staff Worker Name Role Phone Wilver CUENCA, Rimma Rincon Primary Care Physician [phone] Encounter [facility] Date(s): 08/19/24 - 09/18/24 [facility] [address] [place] [address] Encounter Type: Triage Allergies, Adverse Reactions, Alerts Substance Criticality Severity Reaction Reaction Severity Status doxycycline Active amoxicillin Active Immunizations Given and Recorded Vaccine Date Status Refusal Reason SARS-CoV-2 (COVID-19) mRNA BNT-162b2 vac 11/01/20 Given SARS-CoV-2 (COVID-19) mRNA BNT-162b2 vac 10/11/20 Given pneumococcal 13-valent vaccine 1 09/21/19 Given 1Early/Late Reason: Med Not Available Medications Admelog SoloStar 100 units/mL injectable solution See Instructions, max daily dose 20 units, use 3 times per day with meal following scale, # 6 mL, 3Refills, Maintenance, 08/19/24 4:13:00 PM EST, [id number], Partial fill upon patient request if the prescription is for a schedule II opioid drug., 178, cm, 07/23/24 11:14:00 EST, Height, 114.1, kg, 01/14/24 10:21:00 EDT, Dry Weight Start Date: 08/19/24 Status: Ordered Quantity: 6.0 Unit: mL Repeat number: 4 Indication: Type 2 diabetes mellitus without complications allopurinol 300 mg oral tablet 90 each, [...] 3 Refills, Maintenance, 07/23/24 11:53:00 AM EST, [id number], 178, cm, 07/23/24 11:14:00 EST, Height, [...] 10:35:00 AM EST, Route to Pharmacy Electronically, [facility], Partial fill upon patientrequest if the [...] Refills, Soft Stop, 07/23/24 11:57:00 AM EST, [facility]/pharmacy #[id number], Partial fill uponpatient request if the prescription [...] Refills, Maintenance, 07/23/24 11:54:00 AM EST, Solution, [facility] #[id number], Partial fill upon patient request [...] Refills, Maintenance, 07/23/24 11:53:00 AM EST, Solution, [facility]/pharmacy #[id number], Partial fill upon patient request [...] extremity Confirmed Active 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 Active Diverticulosis [...] Confirmed Active Vitamin D deficiency Confirmed Active Social History Social History Type Response Smoking Status Former smoker entered on: 07/23/17 Sex Sex Representation Male (finding) Patient Care team information Care Team Personnel Name: Anastacio Garcia Position: [facility] Associate Professional Member Role: Lifetime Consulting Provider Address: [address] [facility] [address] [facility] [address] Telecom: Name: Dusty Montanez MD Position: [facility] Renal MD Member Role: Lifetime Consulting Physician Address: [address] [place] [address] [address] [facility] [place], [place] [address] Telecom: Name: Karlee Zarate Position: [facility] RN Supv Member Role: Primary Care Nurse Name: Priya Laurent RN Position: [facility] AMB Nurse Member Role: Primary Care Nurse Name: Epi Senior MD Position: [facility] Renal MD Member Role: Lifetime Consulting Physician Address: [address] [facility] [address] [facility] [address] Telecom: Name: Jossy Rodriges RN Position: [facility] RN Member Role: Primary Care Nurse Name: Karlee Mueller Position: [facility] Construction Area Manager Member Role: Lifetime Consulting Physician Name: Rimma Pettit MD Position: [facility] Physician - Primary Care Member Role: PCP Address: [address] [place] [address], [address] [facility] [place], [place] [address] Telecom: Name: Subha Vega RN Position: [facility] RN Member Role: Primary Care Nurse Name: Siobhan Lambert RN Position: [facility] RN Member Role: Primary Care Nurse Name: Melissa Rivas Position: [facility] Outreach Member Role: Lifetime Consulting Physician Name: Song Nieto MD Position: [facility] Outreach Member Role: Lifetime Consulting Physician Address: [address] [facility] [address] [facility] [place] [address]- Telecom: Name: Mu Sams RN Position: S RN Member Role: Primary Care Nurse Name: Yaa Rahman RN Position: S RN Member Role: Primary Care Nurse Name: Olivia Klein RN Position: [facility] RN Member Role: Primary Care Nurse Name: Yelena Dos Santos RN Position: [facility] RN Member Role: Primary Care Nurse Name: Regine Thao RN Position: S RN Member Role: Primary Care Nurse Care Team Related Persons Name: IVAN HOLGUIN Name: ART HOLGUIN Insurance Providers Guarantor name: SHARLENE HOLGUIN Health Plan Information #: 1 Payer: MEDICARE PART B OUTPT Member Number: NA Policy Number: NA Group Number: NA Health Plan Information #: 2 Payer: [employer] Member Number: NA Policy Number: NA Group Number: NA
== END 2024-09-20 16:42 | disposition home or self-care (01) ==
LOC: HO.HUSH 10:32
PROVIDERS: PCP Internal Medicine; Visit Provider Urology
DX: N39.0 Urinary tract infection, site not specified (principal); N32.0 Bladder-neck obstruction
CPT/HCPCS: 99213; G2211

== ENCOUNTER 2025-01-31 13:51 | Outpatient (AMB) | payer MEDICARE, OTHER, SELFPAY ==
--- OUTSIDE RECORDS SUMMARY | 2025-01-31 13:53 | XMS_ITS | Patient Health Record ---
Author Organization [facility] [address] Address [address] [place] [address] Care Team Providers Care Compensation Manager Name Role Phone TRISTAN PETTIT Primary Care Provider [phone] VINNIE PIPER Unavailable [phone] MOON REYES Unavailable [phone] Allergies Allergen (clinical drug ingredient) Drug/Non Drug Allergy documented on EMR Reaction Allergy Type Onset Date Status amoxicillin amoxicillin (uncoded) Unknown Allergy Active doxycycline Doxycycline hives, bleeding gums, nausea Drug Allergy Active Results Component Value Reference Range Notes CBC Reviewed date:04/02/2024 09:19:17 AM Interpretation: Performing Lab: Notes/Report: Note Original Ordering Provider: WINSTON BUCHANAN MD [employer] [address] Management Technician - Margie Farrell MD WBC 8.2 4.8-10.8 [...] Note Original Ordering Provider: WINSTON BUCHANAN MD [employer], a member of [address] [address] Management Technician - aMrgie Farrell MD BASIC METABOLIC PANEL (BMP) Reviewed date:04/02/2024 09:19:17 AM Interpretation: Performing Lab: Notes/Report: Management Technician - Margie Farrell MD [address] [place] [address] [employer], a member of [facility] Original Ordering Provider: WINSTON BUCHANAN MD GLUCOSE 114 70-100 mg/dL Reference range applicable [...] date:03/28/2024 10:17:55 AM Interpretation: Performing Lab: Notes/Report: Management Technician - Margie Farrell MD [address] [place] [address] [employer], a member of [facility] Original Ordering Provider: WINSTON BUCHANAN MD GLUCOSE 166 70-100 mg/dL Reference range applicable [...] date:03/28/2024 09:59:06 AM Interpretation: Performing Lab: Notes/Report: Management Technician - Margie Farrell MD [address] [place] [address] [employer], a member of [facility] Original Ordering Provider: WINSTON BUCHANAN MD GLUCOSE 74 70-100 mg/dL Reference range applicable to fasting specimens only BUN 50 5-25 mg/dL CREAT 1.29 0.7-1.3 mg/dL GLOMERULAR FILTRATION RATE 56 >60 This eGFR result was calculated using the CKD-EPI 202 Creatinine Equation SODIUM 143 135-145 mEq/L POTASSIUM 4.1 3.5-5.5 mmol/L CHLORIDE 104 96-110 mmol/L CO2 33 21-32 mmol/L ANION GAP 6 3-11 CALCIUM 9.7 8.5-10.5 mg/dL BASIC METABOLIC PANEL (BMP) Reviewed date:03/13/2024 03:23:59 PM Interpretation: Performing Lab: Notes/Report: Management Technician - Margie Farrell MD [address] [place] [address] [employer], a member of [facility] Original Ordering Provider: WINSTON BUCHANAN MD GLUCOSE 118 70-100 mg/dL Reference range applicable [...] date:02/13/2024 09:32:43 AM Interpretation: Performing Lab: Notes/Report: Original Ordering Provider: WINSTON BUCHANAN MD [employer], a member of [address] [address] Management Technician - Margie Farrell MD GLUCOSE 128 70-100 mg/dL Reference range applicable [...] date:03/20/2024 10:48:18 AM Interpretation: Performing Lab: Notes/Report: Management Technician - Margie Farrell MD [address] [place] [address] [employer], a member of [facility] Original Ordering Provider: WINSTON BUCHANAN MD GLUCOSE 115 70-100 mg/dL Reference range applicable [...] date:03/28/2024 10:15:42 AM Interpretation: Performing Lab: Notes/Report: Management Technician - Margie Farrell MD [address] [place] [address] [employer], a member of [facility] Original Ordering Provider: WINSTON BUCHANAN MD GLUCOSE 125 70-100 mg/dL Reference range applicable [...] date:03/13/2024 03:24:21 PM Interpretation: Performing Lab: Notes/Report: Management Technician - Margie Farrell MD [address] [place] [address] [employer], a member of [facility] Original Ordering Provider: WINSTON BUCHANAN MD GLUCOSE 126 70-100 mg/dL Reference range applicable [...] date:03/28/2024 09:55:36 AM Interpretation: Performing Lab: Notes/Report: Management Technician - Margie Farrell MD [address] [place] [address] [employer], a member of [facility] Original Ordering Provider: WINSTON BUCHANAN MD GLUCOSE 76 70-100 mg/dL Reference range applicable to fasting specimens only BUN 59 5-25 mg/dL CREAT 1.65 0.7-1.3 mg/dL GLOMERULAR FILTRATION RATE 41 >60 This eGFR result was calculated using the CKD-EPI 2020 Creatinine Equation SODIUM 143 135-145 mEq/L POTASSIUM 4.1 3.5-5.5 mmol/L CHLORIDE 102 96-110 mmol/L CO2 35 21-32 mmol/L ANION GAP 6 3-11 CALCIUM 9.8 8.5-10.5 mg/dL CBC Reviewed date:03/13/2024 03:23:54 PM Interpretation: Performing Lab: Notes/Report: Note Original Ordering Provider: WINSTON BUCHANAN MD [employer], a member of [address] [address] Management Technician - Margie Farrell MD WBC 10.9 4.8-10.8 [...] Note Original Ordering Provider: WINSTON BUCHANAN MD [employer], a member of [address] [address] Management Technician - Margie Farrell MD CBC Reviewed date:04/26/2024 11:19:36 AM Interpretation: Performing Lab: Notes/Report: Note Original Ordering Provider: WINSTON BUCHANAN MD [employer] [address] Management Technician - Margie Farrell MD WBC 8.7 4.8-10.8 [...] Note Original Ordering Provider: WINSTON BUCHANAN MD [employer] [address] Management Technician - Margie Farrell MD CBC Reviewed date:03/28/2024 10:14:11 AM Interpretation: Performing Lab: Notes/Report: Note Original Ordering Provider: WINSTON BUCHANAN MD [employer] [address] Management Technician - Margie Farrell MD WBC 7.1 4.8-10.8 [...] Note Original Ordering Provider: WINSTON BUCHANAN MD [employer] [address] Management Technician - Margie Farrell MD CBC Reviewed date:03/28/2024 10:10:39 AM Interpretation: Performing Lab: Notes/Report: Note Original Ordering Provider: WINSTON BUCHANAN MD [employer] [address] Management Technician - Margie Farrell MD WBC 7.4 4.8-10.8 [...] Note Original Ordering Provider: WINSTON BUCHANAN MD [employer] [address] Management Technician - Margie Farrell MD CBC Reviewed date:03/20/2024 10:48:58 AM Interpretation: Performing Lab: Notes/Report: Note Original Ordering Provider: WINSTON BUCHANAN MD [employer] [address] Management Technician - Margie Farrell MD WBC 8.3 4.8-10.8 [...] Note Original Ordering Provider: WINSTON BUCHANAN MD [employer], a member of [address] [place] [address] Management Technician - Margie Farrell MD CBC Reviewed date:03/28/2024 09:51:01 AM Interpretation: Performing Lab: Notes/Report: Note Original Ordering Provider: WINSTON BUCHANAN MD [employer], a member of [address] [address] Management Technician - Margie Farrell MD WBC 5.9 4.8-10.8 [...] Note Original Ordering Provider: WINSTON BUCHANAN MD [employer], a member of [address] [address] Management Technician - Margie Farrell MD CBC Reviewed date:03/13/2024 03:23:27 PM Interpretation: Performing Lab: Notes/Report: Note Original Ordering Provider: WINSTON BUCHANAN MD [employer], a member of [address] [address] Management Technician - Margie Farrell MD WBC 6.4 4.8-10.8 [...] Note Original Ordering Provider: WINSTON BUCHANAN MD [employer], a member of [address] [address] Management Technician - Margie Farrell MD CBC Reviewed date:02/16/2024 10:52:16 AM Interpretation: Performing Lab: Notes/Report: Note Original Ordering Provider: WINSTON BUCHANAN MD [employer], a member of [address] [address] Management Technician - Margie Farrell MD WBC 4.3 4.8-10.8 x10-3/uL RBC 3.4 4.5-5.5 x10-6/uL HEMOGLOBIN 10.0 13.5-17.5 g/dL HEMATOCRIT 33.0 42-54 % MCV 97.1 79-98 fL MCH 29.4 27-32 pg MCHC 30.3 32-37 g/dL RDW 17.3 11-15 % PLT COUNT 150 130-400 x10-3/uL MEAN PLATELET VOLUME 10.9 7-11 fL NRBC % AUTO 0.0 <1 % NRBC # AUTO 0.00 <0.1 x10-3/uL Note Original Ordering Provider: WISNTON BUCHANAN MD [employer], a member of [address] [address] Management Technician - Margie Farrell MD CBC Reviewed date:02/13/2024 09:32:36 AM Interpretation: Performing Lab: Notes/Report: Note Original Ordering Provider: WINSTON BUCHANAN MD [employer], a member of [address] [address] Management Technician - Margie Farrell MD WBC 8.4 4.8-10.8 [...] Note Original Ordering Provider: WINSTON BUCHANAN MD [employer] [address] Management Technician - Margie Farrell MD PROSTATIC SPECIFIC ANTIGEN Reviewed date:03/13/2024 03:15:27 PM Interpretation: Performing Lab: Notes/Report: PROSTATIC SPECIFIC ANTIGEN 1.9 0.0-4.0 ng/mL The Siemens [employer] Chemiluminescent Immunoassay is used. Results obtained with different assay methods or kits cannot be used interchangeably. Results cannot be interpreted as absolute evidence of the presence or absence of malignant disease Note [employer], a member of [place] [id number] Management Technician - Margie Farrell MD BASIC METABOLIC PANEL (BMP) Reviewed date:04/02/2024 09:19:17 AM Interpretation: Performing Lab: Notes/Report: Management Technician - Margie Farrell MD [address] [place] [address] [employer], a member of [facility] Original Ordering Provider: WINSTON BUCHANAN MD GLUCOSE 239 70-100 mg/dL Reference range applicable to fasting specimens only BUN 69 5-25 mg/dL CREAT 1.82 0.7-1.3 mg/dL GLOMERULAR FILTRATION RATE 37 >60 This eGFR result was calculated using the CKD-EPI 202 Creatinine Equation SODIUM 140 135-145 mEq/L POTASSIUM 3.9 3.5-5.5 mmol/L CHLORIDE 102 96-110 mmol/L CO2 29 21-32 mmol/L ANION GAP 9 3-11 CALCIUM 8.6 8.5-10.5 mg/dL BASIC METABOLIC PANEL (BMP) Reviewed date:04/26/2024 11:19:31 AM Interpretation: Performing Lab: Notes/Report: Original Ordering Provider: WINSTON BUCHANAN MD [employer], a member of [address] [address] Management Technician - Margie Farrell MD GLUCOSE 132 70-100 mg/dL Reference range applicable to fasting specimens only BUN 66 5-25 mg/dL CREAT 1.83 0.7-1.3 mg/dL GLOMERULAR FILTRATION RATE 36 >60 This eGFR result was calculated using the CKD-EPI 202 Creatinine Equation SODIUM 140 135-145 mEq/L POTASSIUM 4.1 3.5-5.5 mmol/L CHLORIDE 106 96-110 mmol/L CO2 28 21-32 mmol/L ANION GAP 6 3-11 CALCIUM 9.3 8.5-10.5 mg/dL BASIC METABOLIC PANEL (BMP) Reviewed date:02/16/2024 10:52:16 AM Interpretation: Performing Lab: Notes/Report: Management Technician - Margie Farrell MD [address] [place] [address] [employer], a member of [facility] Original Ordering Provider: WINSTON BUCHANAN MD GLUCOSE 106 70-100 mg/dL Reference range applicable [...] date:03/28/2024 10:00:06 AM Interpretation: Performing Lab: Notes/Report: Management Technician - Margie Farrell MD [address] [place] [address] [employer], a member of [facility] Original Ordering Provider: WINSTON BUCHANAN MD GLUCOSE 92 70-100 mg/dL Reference range applicable to fasting specimens only BUN 58 5-25 mg/dL CREAT 1.47 0.7-1.3 mg/dL GLOMERULAR FILTRATION RATE 48 >60 This eGFR result was calculated using the CKD-EPI 2020 Creatinine Equation SODIUM 141 135-145 mEq/L POTASSIUM 3.9 3.5-5.5 mmol/L CHLORIDE 103 96-110 mmol/L CO2 32 21-32 mmol/L ANION GAP 6 3-11 CALCIUM 9.4 8.5-10.5 mg/dL GLYCOHEMOGLOBIN PROFILE Reviewed date:02/20/2024 02:04:41 PM Interpretation: Performing Lab: Notes/Report: Management Technician - Margie Farrell MD [address] [place] [address] [employer], a member of [facility] Original Ordering Provider: WINSTON BUCHANAN MD GLYCATED HEMOGLOBIN A1C 6.1 <6.5 % ESTIMATED AVERAGE GLUCOSE 128 CBC Reviewed date:03/28/2024 09:56:44 AM Interpretation: Performing Lab: Notes/Report: Note Original Ordering Provider: WINSTON BUCHANAN MD [employer], a member of [address] [address] Management Technician - Margie Farrell MD WBC 10.6 4.8-10.8 [...] Note Original Ordering Provider: WINSTON BUCHANAN MD [employer] [address] Management Technician - Margie Farrell MD CBC Reviewed date:04/02/2024 09:19:17 AM Interpretation: Performing Lab: Notes/Report: Note Original Ordering Provider: WINSTON BUCHANAN MD [employer], a member of [address] [address] Management Technician - Margie Farrell MD WBC 7.7 4.8-10.8 [...] Note Original Ordering Provider: WINSTON BUCHANAN MD [employer] [address] Management Technician - Margie Farrell MD CBC Reviewed date:03/28/2024 09:59:30 AM Interpretation: Performing Lab: Notes/Report: Note Original Ordering Provider: WINSTON BUCHANAN MD [employer] [address] Management Technician - Margie Farrell MD WBC 7.2 4.8-10.8 [...] Note Original Ordering Provider: WINSTON BUCHANAN MD [employer] [address] Management Technician - Margie Farrell MD BASIC METABOLIC PANEL (BMP) Reviewed date:02/20/2024 02:06:11 PM Interpretation: Performing Lab: Notes/Report: Management Technician - Margie Farrell MD [address] [place] [address] [employer], a member of [facility] Original Ordering Provider: WINSTON BUCHANAN MD GLUCOSE 254 70-100 mg/dL Reference range applicable to fasting specimens only BUN 38 5-25 mg/dL CREAT 1.34 0.7-1.3 mg/dL GLOMERULAR FILTRATION RATE 53 >60 This eGFR result was calculated using the CKD-EPI 2020 Creatinine Equation SODIUM 141 135-145 mEq/L POTASSIUM 4.6 3.5-5.5 mmol/L CHLORIDE 106 96-110 mmol/L CO2 32 21-32 mmol/L ANION GAP 3 3-11 CALCIUM 9.5 8.5-10.5 mg/dL CBC Reviewed date:03/28/2024 09:56:31 AM Interpretation: Performing Lab: Notes/Report: Note Original Ordering Provider: WINSTON BUCHANAN MD [employer] [address] Management Technician - Margie Farrell MD WBC 7.4 4.8-10.8 [...] Note Original Ordering Provider: WINSTON BUCHANAN MD [employer] [address] Management Technician - Margie Farrell MD CBC Reviewed date:02/20/2024 02:06:44 PM Interpretation: Performing Lab: Notes/Report: Note Original Ordering Provider: WINSTON BUCHANAN MD [employer] [address] Management Technician - Margie Farrell MD WBC 7.0 4.8-10.8 [...] Note Original Ordering Provider: WINSTON BUCHANAN MD [employer], a member of [address] [address] Management Technician - Margie Farrell MD BASIC METABOLIC PANEL (BMP) Reviewed date:03/20/2024 10:53:23 AM Interpretation: Performing Lab: Notes/Report: Management Technician - Margie Farrell MD [address] [place] [address] [employer], a member of [facility] Original Ordering Provider: WINSTON BUCHANAN MD GLUCOSE 89 70-100 mg/dL Reference range applicable [...] date:03/13/2024 03:22:07 PM Interpretation: Performing Lab: Notes/Report: Management Technician - Margie Farrell MD [address] [place] [address] [employer], a member of [facility] Original Ordering Provider: WINSTON BUCHANAN MD GLUCOSE 130 70-100 mg/dL Reference range applicable to fasting specimens only BUN 31 5-25 mg/dL CREAT 1.10 0.7-1.3 mg/dL GLOMERULAR FILTRATION RATE 67 >60 This eGFR result was calculated using the CKD-EPI 2020 Creatinine Equation SODIUM 143 135-145 mEq/L POTASSIUM 5.1 3.5-5.5 mmol/L CHLORIDE 111 96-110 mmol/L CO2 27 21-32 mmol/L ANION GAP 5 3-11 CALCIUM 9.5 8.5-10.5 mg/dL CBC Reviewed date:03/20/2024 10:58:57 AM Interpretation: Performing Lab: Notes/Report: Note Original Ordering Provider: WINSTON BUCHANAN MD [employer], a member of [address] [address] Management Technician - Margie Farrell MD WBC 8.2 4.8-10.8 [...] Note Original Ordering Provider: WINSTON BUCHANAN MD [employer], a member of [address] [address] Management Technician - Margie Farrell MD CBC Reviewed date:02/20/2024 02:08:27 PM Interpretation: Performing Lab: Notes/Report: Note Original Ordering Provider: WINSTON BUCHANAN MD [employer], a member of [address] [address] Management Technician - Margie Farrell MD WBC 6.4 4.8-10.8 [...] Note Original Ordering Provider: WINSTON BUCHANAN MD [employer], a member of [address] [address] Management Technician - Margie Farrell MD CBC Reviewed date:02/13/2024 09:28:04 AM Interpretation: Performing Lab: Notes/Report: Note Original Ordering Provider: WINSTON BUCHANAN MD [employer], a member of [address] [address] Management Technician - Margie Farrell MD WBC 6.7 4.8-10.8 [...] Note Original Ordering Provider: WINSTON BUCHANAN MD [employer] [address] Management Technician - Margie Farrell MD CT CHEST WO CONTRAST Reviewed date:07/15/2024 11:13:09 AM Interpretation: Performing Lab: Notes/Report: Note See Note [facility], a member of [facility] Patient Name: SHARLENE HOLGUIN Date of : 1940 Reason for Exam: PULMONARY NODULE Exam Date: 07/09/2024 [id number] EST Report Status: Final Ordering Provider: TRISTAN [...] Electronically Signed By: Yousif Moss Signed Date: 11:16 ET Workstation ID: [id number] Transcribed By: Self Edit Transcribed Date: 07/10/2024 10:54 ET BASIC METABOLIC PANEL (BMP) Reviewed date:04/26/2024 11:18:07 AM Interpretation: Performing Lab: Notes/Report: Management Technician - Margie Farrell MD [address] [place] [address] [employer], a member of [facility] Original Ordering Provider: WINSTON BUCHANAN MD GLUCOSE 101 70-100 mg/dL Reference range applicable [...] date:03/28/2024 09:56:53 AM Interpretation: Performing Lab: Notes/Report: Original Ordering Provider: WINSTON BUCHANAN MD GLUCOSE 194 70-100 mg/dL Reference range applicable to fasting specimens only BUN 55 5-25 mg/dL CREAT 1.64 0.7-1.3 mg/dL GLOMERULAR FILTRATION RATE 42 >60 This eGFR result was calculated using the CKD-EPI 2021 Creatinine Equation SODIUM 140 135-145 mEq/L POTASSIUM 4.0 3.5-5.5 mmol/L CHLORIDE 102 96-110 mmol/L CO2 31 21-32 mmol/L ANION GAP 7 3-11 CALCIUM 10.0 8.5-10.5 mg/dL BASIC METABOLIC PANEL (BMP) Reviewed date:02/13/2024 09:11:16 AM Interpretation: Performing Lab: Notes/Report: Management Technician - Margie Farrell MD [address] [place] [id number] [employer], a member of [facility] Original Ordering Provider: WINSTON BUCHANAN MD GLUCOSE 82 70-100 mg/dL Reference range applicable [...] date:02/13/2024 09:30:50 AM Interpretation: Performing Lab: Notes/Report: Management Technician - Margie Farrell MD [address] [place] [address] [employer], a member of [facility] Original Ordering Provider: WINSTON BUCHANAN MD GLUCOSE 109 70-100 mg/dL Reference range applicable to fasting specimens only BUN 25 5-25 mg/dL CREAT 1.26 0.7-1.3 mg/dL GLOMERULAR FILTRATION RATE 57 >60 This eGFR result was calculated using the CKD-EPI 2020 Creatinine Equation SODIUM 142 135-145 mEq/L POTASSIUM 4.7 3.5-5.5 mmol/L CHLORIDE 110 96-110 mmol/L CO2 27 21-32 mmol/L ANION GAP 5 3-11 CALCIUM 9.3 8.5-10.5 mg/dL CBC Reviewed date:04/24/2024 12:04:35 PM Interpretation: Performing Lab: Notes/Report: Note Original Ordering Provider: WINSTON BUCHANAN MD [employer], a member of [address] [address] Management Technician - Margie Farrell MD WBC 8.2 4.8-10.8 [...] Note Original Ordering Provider: WINSTON BUCHANAN MD [employer], a member of [address] [address] Management Technician - Margie Farrell MD CBC Reviewed date:02/13/2024 09:29:15 AM Interpretation: Performing Lab: Notes/Report: Note Original Ordering Provider: WINSTON BUCHANAN MD [employer], a member of [address] [address] Management Technician - Margie Farrell MD WBC 6.9 4.8-10.8 [...] Note Original Ordering Provider: WINSTON BUCHANAN MD [employer], a member of [address] [address] Management Technician - Margie Farrell MD Reason For Referral Reason [facility] Diagnosis 1 Polypharmacy (Z79.89 9) Diagnosis 2 Chronic kidney disea se, stage 2 (mild) (N18.2) Diagnosis 3 Chronic obstructive pulmonary disease, unspecified (J44.9) Diagnosis 4 Type 2 diabetes eduardo itus with unspecified complications (E11.8) Diagnosis 5 Sleep apnea, unspeci fied type (G47.30) Diagnosis 6 Atrial fibrillation, unspecified type (I48.91) Referral Organization [facility] [address] Referring Provider First Name TRISTAN Referring Provider Last Name MAL Referring Provider Speciality Internal M edicine Referred Provider Specialty Other Medica l Care General Notes [facility], P [phone], F [phone] Clinical Notes Melissa Rivas 2023 10:43:40 AM >Referral info, [facility] Willian Alexis 04/17/2024 10:26:16 AM > The patient is scheduled for admission on 04/19/2024. Pt is aware Referral Priority Routine Medications Medication SIG (Take, Route, Frequency, Duration) Notes Start Date End Date Status Eliquis 2.5 MG once Orally twice a day Active Carvedilol 6.25 MG 1 tablet with food Orally Twice a day Active Montelukast Sodium 10 MG 1 tablet Orally Once a day for 30 day(s) Active oxyCODONE HCl 5 MG 1 tablet as needed Orally twice a day for 15 days 08/19/2024 Active Allopurinol 300 MG 1 tablet Orally Once a day for 30 day(s) Active Albuterol Sulfate HFA 108 (90 Base) MCG/ACT 1 puff as needed Inhalation every 4 hrs Active Trulicity 0.75 MG/0.5ML as directed Subcutaneous Active Jardiance 10 MG 1 tablet Orally Once a day Active Fluticasone Propionate 50 MCG/ACT 1 spray in each nostril Nasally Once a day Active Triamcinolone Acetonide 0.1 % 1 application Externally Two times a Week Not-Taking Vitamin D (Cholecalciferol) 25 MCG (1000 UT) 1 capsule Orally Once a day Not-Taking Ketorolac Tromethamine 0.5 % 1 drop into affected eye as needed Ophthalmic Four times a day Not-Taking prednisoLONE Acetate 1 % 1 drop into affected eye Ophthalmic Twice a day Not-Taking Clotrimazole-Betame thasone 1-0.05 % APPLY EXTERNALLY TWICE A DAY FOR 30 DAYS External for 30 Days Active Entresto 24-26 MG TAKE 1 TABLET BY MOUTH TWICE A DAY Oral for 90 Days Active Vitamin E 100 UNIT as directed Orally Not-Taking Entresto 24-26 MG Oral for 90 Days Active Ferrous Sulfate 325 (65 Fe) MG 1 tablet Orally Three times a Week Not-Taking Colchicine 0.6 MG 1 tablet Orally once daily for 30 medication to be discontinued December 31 Not-Taking Albuterol Sulfate 108 (90 Base) MCG/ACT 1 puff as needed Inhalation every 4 hrs Not-Taking Torsemide 60 MG 1 tablet Orally twice a day Active Tamsulosin HCl 0.4 MG Oral for 90 Days Not-Taking Insulin Pen Needle 32G X 6 MM intro 6 times daily for dx e11.8 for 90 days 05/05/2023 Active Tamsulosin HCl 0.4 MG 0.4 MG ORALLY BEDTIME FOR 90 DAYS Oral for 90 Days Not-Taking MiraLax 17 GM/SCOOP as directed Orally Active Senna 8.6 MG one tab Orally Once a day Active NovoLOG FlexPen 100 UNIT/ML 2 units every increase POC of 50 above 150 Subcutaneous daily sliding scale Active Entresto 24-26 MG 1 tablet Orally Twice a day Not-Taking Simvastatin 40 MG 1 tablet in the evening Orally Once a day for 30 day(s) Active Streamline Teresa 2 [place] - USE TO SCAN Sy[employer]osSTTNT [employer] Group[employer] 2 SENSORS TO MONITOR BLOOD GLUCOSE for 30 Days Not-Taking Nitroglycerin 0.4 MG one tablet Sublingual Once a day or as needed for 30 days Active Tamsulosin HCl 0.4 MG Oral for 90 Days Not-Taking Trelegy Ellipta 100-62.5-25 MCG/INH INHALE 1 PUFF BY MOUTH EVERY DAY for 90 Active LORazepam 0.5 MG 1 tablet Orally Once a day prn for 30 days 02/09/2023 Not-Taking Clotrimazole-Betame thasone 1-0.05 % 1 application Externally Twice a day for 30 days Active OneTouch Ultra Test - as directed In Vitro Active Finasteride 5 MG 1 tablet Orally Once a day Active Insulin Glargine 100 UNIT/ML 30 units Subcutaneous Active Immunizations Vaccine Route Administration Date Status Comme nts influenza IM Intramuscular 06/15/2022 Administered influenza IM Intramuscular 06/22/2023 Administered influenza IM Intramuscular 06/24/2024 Administered Social History Tobacco Use: Social History Observation Description Date Details (start date - stop date) Never Smoker NA - NA Tobacco Use/Smoking Question Answer Notes Are you a nonsmoker Problems Problem Type SNOMED Code ICD Code Onset Dates Problem Status W/U Status Risk Notes Problem 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) Active confirmed Problem 28920774205984 Type 2 diabetes mellitus with diabetic chronic kidney disease (E11.22) Active confirmed Problem 83990112 Type 2 diabetes mellitus with other specified complication (E11.69) Active confirmed Problem 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) Type 2 diabetes mellitus with unspecified complications (E11.8) Active confirmed Problem 611451651 Mixed hyperlipidemia (E78.2) Active confirmed Problem [id number] Hypertensive chronic kidney disease with stage 1 through stage 4 chronic kidney disease, or unspecified chronic kidney disease (I12.9) Active confirmed Problem 84916949 Hypertensive heart and chronic kidney disease with heart failure and stage 1 through stage 4 chronic kidney disease, or unspecified chronic kidney disease (I13.0) Active confirmed Problem Chronic diastolic heart failure (257980165) Chronic diastolic (congestive) heart failure (I50.32) Active confirmed Problem 33021142 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) Active confirmed Problem Acute exacerbation of chronic obstructive airways disease (671222232) Chronic obstructive pulmonary disease with (acute) exacerbation (J44.1) Active confirmed Problem Chronic obstructive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
--- NOTE | 2025-01-31 14:00 | MHC.OFFVIS ---
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 He seen for following urologic issues - lower urinary tract symptoms - urinary culture Six-month follow-up UA negative Significant improvement after stopping Jardiance less nocturia, no infections, Would like to continue with current medications Prior cystoscopy Recurrent BPH Previously discussed prostate procedures Had attempted to order DEXA scan for osteopenia following long bone fracture. Denied by his insurance. Longstanding diabetic Remains on combination finasteride and tamsulosin Lower urinary tract symptoms Prior prostate procedure Has both storage and emptying symptoms Urinary urgency with weakness of stream Diabetic on Jardiance Prostate medications include tamsulosin PFSH Surgical History Hx of cystoscopy Review of Systems Const Denies chills and Denies fever(s) Card Reports no additional complaints and Denies syncope Resp Denies cough GI Denies abdominal pain and Denies heartburn Reports as per HPI and Denies change in libido Neuro Denies syncope Psych Denies change in libido Endo Denies change in libido Physical Exam Const General: cooperative, healthy appearing, comfortable and no acute distress Orientation/consciousness: patient oriented x3 HEENT Face and sinus: Yes normal facial exam Mouth: moist mucous membranes Neck Neck: Yes normal visual inspection, Yes full ROM and Yes trachea midline Chest Chest palpation & inspection: normal inspection of the chest Resp Effort & Inspection: normal respiratory effort, able to speak in complete sentences and no respiratory distress GI Inspection: Yes normal to inspection Back/Spine/Pelvis Cervical Spine: normal cervical lordosis Thoracic/Lumbar Spine: thoracic and lumbar spine normal to inspection Skin General skin exam: no rashes or lesions noted Neuro General: patient oriented x3, gait normal, tone normal and moves all extremities Extrem General: Yes normal to inspection and Yes capillary refill normal Assessment & Plan Assessment & Plan (1) Bladder outlet obstruction: Code(s): N32.0 - Bladder-neck obstruction Category: Medical (2) Complicated urinary tract infection: Code(s): N39.0 - Urinary tract infection, site not specified Category: Medical Plan Six-month follow-up office Medications: Refilled finasteride 5 mg PO DAILY 90 days 90 tabs 2RF N32.0 - Bladder-neck obstruction tamsulosin 0.4 mg PO BEDTIME 90 days 90 caps 2RF N13.8 - Other obstructive and reflux uropathy, N32.0 - Bladder-neck obstruction, N40.1 - Benign prostatic hyperplasia with lower urinary tract symptoms Patient Instructions: This note is constructed using voice recognition software. While every effort has been made to ensure accuracy escalator operator errors may have been included. Imaging studies, laboratory and physical exam results were discussed and reviewed in detail. No major barriers to patient understanding were identified. An opportunity to ask questions regarding the treatment plan was provided. All questions were answered. The patient expressed understanding and agreement with the above treatment plan. The patient is aware they should contact our office by phone for worsening of their current condition or the appearance of new urologic symptoms. Compliance is encouraged with any medications and followup testing that is ordered. It is a privilege to participate in the urologic care of your patient. If you have any questions or concerns regarding treatment for the above conditions, or other urologic issues, please do not hesitate to contact me. The office telephone contact is [phone]. Sincerely, Dr Franco Staples MD, [facility] - Urology Compassionate Specialist Care for the Genitourinary System Coding Level of Care Code Est Pt Level 3 (61852) Complex EM visit Add On G2211 Diagnoses Bladder outlet obstruction N32.0 Complicated urinary tract infection N39.0
== END 2025-01-31 14:31 | disposition home or self-care (01) ==
LOC: HO.HUSH 13:51
PROVIDERS: PCP Internal Medicine; Visit Provider Urology
DX: N32.0 Bladder-neck obstruction (principal); N39.0 Urinary tract infection, site not specified; Z13.9 Encounter for screening, unspecified
CPT/HCPCS: 99213; G2211

== ENCOUNTER → 2025-01-31 13:51 | Outpatient (BNVA) | payer MEDICARE, OTHER, SELFPAY | PROVIDERS: PCP Internal Medicine; Visit Provider Urology | DX: N32.0 Bladder-neck obstruction (principal); N39.0 Urinary tract infection, site not specified | CPT/HCPCS: 81003; 99212 ==

== ENCOUNTER 2025-08-05 13:05 | Outpatient (AMB) | payer MEDICARE, OTHER, SELFPAY ==
--- NOTE | 2025-08-05 13:00 | MHC.OFFVIS ---
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 He seen for following urologic issues - lower urinary tract symptoms - urinary culture Six-month follow-up UA negative Effectively emptying bladder Significant improvement after stopping Jardiance less nocturia, no infections, Would like to continue with current medications Prior cystoscopy Recurrent BPH Previously discussed prostate procedures Had attempted to order DEXA scan for osteopenia following long bone fracture. Denied by his insurance. Longstanding diabetic Remains on combination finasteride and tamsulosin Lower urinary tract symptoms Prior prostate procedure Has both storage and emptying symptoms Urinary urgency with weakness of stream Diabetic on Jardiance Prostate medications include tamsulosin PFSH Surgical History Hx of cystoscopy Office Procedures Post Void Residual Post Residual Void Post Void Residual (PVR): 0 [id number]-[id number] Void Residual by ultrasound Results AMB Urinalysis, Automated UA Leukoctes 0 Yehuda/uL Last Edit by GARRY Pond on 08/05/25 13:35 UA Nitrite Negative Last Edit by Mary Ellen Fry CCM on 08/05/25 13:35 UA Urobilinogen 0.2 mg/dL Last Edit by Mary Ellen Fry [facility] on 08/05/25 13:35 UA Protein 30 mg/dL Last Edit by Mary Ellen Fry [facility] on 08/05/25 13:35 UA pH 5.5 Last Edit by Mary Ellen Fry [facility] on 08/05/25 13:35 UA Blood 0 Nikko/uL Last Edit by Mary Ellen Fry CCM on 08/05/25 13:35 UA Specific [place] 1.010 Last Edit by Mary Ellen Fry CCM on 08/05/25 13:35 UA Ketone Negative Last Edit by Mary Ellen Fry CCM on 08/05/25 13:35 UA Bilirubin 0 mg/dL Last Edit by GARRY Pond on 08/05/25 13:35 UA Glucose 0 mg/dL Last Edit by GARRY Pond on 08/05/25 13:35 Results Reviewed Results Reviewed: Laboratory Last Values Urine pH (Auto) 5.5 08/05/25 13:34 Specific [place] (Auto) 1.010 08/05/25 13:34 Urine Protein (Auto) 30 mg/dL 08/05/25 13:34 Glucose (UA)(Auto) 0 mg/dL 08/05/25 13:34 Urine Ketones (Auto) Negative 08/05/25 13:34 Urine Blood (Auto) 0 Nikko/uL 08/05/25 13:34 Urine Nitrite (Auto) Negative 08/05/25 13:34 Urine Bilirubin (Auto) 0 mg/dL 08/05/25 13:34 Urine Urobilinogen (Auto) 0.2 mg/dL 08/05/25 13:34 Leukocyte Esterase (Auto) 0 Yehuda/uL 08/05/25 13:34 Assessment & Plan Assessment & Plan Orders: Orders AMB Post Void Residual by ultrasound Today N40.1 - Benign prostatic hyperplasia with lower urinary tract symptoms AMB Urinalysis Automated Today N13.8 - Other obstructive and reflux uropathy, N40.1 - Benign prostatic hyperplasia with lower urinary tract symptoms Medications: Refilled tamsulosin 0.4 mg PO BEDTIME 90 caps 3RF 90 days N13.8 - Other obstructive and reflux uropathy, N32.0 - Bladder-neck obstruction, N40.1 - Benign prostatic hyperplasia with lower urinary tract symptoms finasteride 5 mg PO DAILY 90 tabs 3RF 90 days N32.0 - Bladder-neck obstruction Coding CPT Codes Post Residual Void - PVR CPT Code: 82489-[id number] Void Residual by ultrasound ([id number])
== END 2025-08-05 14:57 | disposition home or self-care (01) ==
LOC: HO.HUSH 13:05
PROVIDERS: PCP Internal Medicine; Visit Provider Urology
DX: N40.1 Benign prostatic hyperplasia with lower urinary tract symptoms (principal); N13.8 Other obstructive and reflux uropathy

== ENCOUNTER → 2025-08-05 13:05 | Outpatient (BNVA) | payer MEDICARE, OTHER, SELFPAY | PROVIDERS: PCP Internal Medicine; Visit Provider Urology | DX: N40.1 Benign prostatic hyperplasia with lower urinary tract symptoms (principal); N13.8 Other obstructive and reflux uropathy | CPT/HCPCS: 51798; 81003 ==